=== PATIENT | female | born 1955 | race Caucasian/White ===

== ENCOUNTER 2017-03-04 14:28 | Observation (INO) | payer MEDICARE, OTHER ==
[2017-03-04] MEDS ORDERED: ASPIRIN 81 MG TABLET, CHEWABLE PO ONE (15:39)
--- NOTE | 2017-03-04 15:46 | ER Document Report ---
ED Medical Screen (RME) - General Chief Complaint: Chest Pain Stated Complaint: CHEST PAIN Time Seen by Provider: 03/04/17 15:39 Mode of Arrival: Ambulatory Information source: Patient Notes: 61 yr old female hx of htn presents with complaints of chest pain , sob m radiating to the left arm . pt notes she has had this pain before, told it was costochondritis I have greeted and performed a rapid initial assessment of this patient. A comprehensive ED assessment and evaluation of the patient, analysis of test results and completion of the medical decision making process will be conducted by additional ED providers. PHYSICAL EXAMINATION: GENERAL: Well-appearing, well-nourished and in no acute distress. HEAD: Atraumatic, normocephalic. EYES: Pupils equal round extraocular movements intact, conjunctiva are normal. ENT: Nares patent NECK: Normal range of motion LUNGS: No respiratory distress Musculoskeletal: Normal range of motion NEUROLOGICAL: Normal speech, normal gait. PSYCH: Normal mood, normal affect. SKIN: Warm, Dry, normal turgor, no rashes or lesions noted. TRAVEL OUTSIDE OF THE [place] IN LAST 30 DAYS: No - Related Data Allergies/Adverse Reactions: Penicillins Allergy (Severe, Verified 03/04/17 14:43) Swelling of Throat Sulfa (Sulfonamide Antibiotics) Allergy (Intermediate, Verified 03/04/17 14:43) morphine [Morphine] Allergy (Verified 03/04/17 14:43) Past Medical History - Past Medical History Cardiac Medical History: Reports: Hx Hypercholesterolemia, Hx Hypertension Pulmonary Medical History: Reports: Hx Asthma, Hx COPD, Hx Pneumonia Endocrine Medical History: Reports: Hx Diabetes Mellitus Type 1, Hx Diabetes Mellitus Type 2 Renal/ Medical History: Denies: Hx Peritoneal Dialysis GI Medical History: Reports: Hx Gastroesophageal Reflux Disease Musculoskeltal Medical History: Reports Hx Arthritis Past Surgical History: Reports: Hx Abdominal Surgery - abd hernia, Hx Cholecystectomy, Hx Hysterectomy - Immunizations Immunizations up to date: No Hx Diphtheria, Pertussis, Tetanus Vaccination: No Physical Exam - Vital signs Vitals: Temp Pulse BP Pulse Ox 97.7 F 70 144/59 H 94 03/04/17 14:42 03/04/17 14:42 03/04/17 14:42 03/04/17 14:42 Course - Vital Signs Vital signs: Temp Pulse Resp BP Pulse Ox 97.7 F 70 144/59 H 94 03/04/17 14:42 03/04/17 14:42 03/04/17 14:42 03/04/17 14:42
--- NOTE | 2017-03-04 16:33 | RADIOLOGY REPORT (SQ) ---
EXAM DESCRIPTION: CHEST SINGLE VIEW COMPLETED DATE/TIME: 03/04/2017 4:23 pm REASON FOR STUDY: chest pain COMPARISON: 12/17/2013 EXAM PARAMETERS: NUMBER OF VIEWS: One view. TECHNIQUE: Single frontal radiographic view of the chest acquired. RADIATION DOSE: NA LIMITATIONS: None. FINDINGS: LUNGS AND PLEURA: No opacities, masses or pneumothorax. No pleural effusion. MEDIASTINUM AND HILAR STRUCTURES: No masses. Contour normal. HEART AND VASCULAR STRUCTURES: Heart normal in size. Normal vasculature. BONES: No acute findings. HARDWARE: None in the chest. OTHER: No other significant finding. IMPRESSION: NO ACUTE RADIOGRAPHIC FINDING IN THE CHEST. TECHNICAL DOCUMENTATION: JOB ID: [id number]
[2017-03-04 16:59] LABS: ABSOLUTE BASOPHILS # (AUTO) 0.1 10^3/uL (0.0-0.2); ABSOLUTE EOSINOPHILS # (AUTO) 0.3 10^3/uL (0.0-0.6); ABSOLUTE MONOCYTES (AUTO) 0.4 10^3/uL (0.1-1.4); ABSOLUTE NEUT (AUTO) 3.2 10^3/uL (1.7-8.2); BASOPHILS % (AUTO) 1.2 % (0-2); EOSINOPHILS % (AUTO) 5.2 % (0-6); HEMATOCRIT 37.3 % (36.0-47.0); HEMOGLOBIN 12.5 g/dL (12.0-15.5); HGB HCT DIFFERENCE 0.2; LYMPHOCYTES % (AUTO) 20.4 % (13-45); MEAN CORPUSCULAR HEMOGLOBIN 28.2 pg (27.0-33.4); MEAN CORPUSCULAR HGB CONC 33.4 g/dL (32.0-36.0); MEAN CORPUSCULAR VOLUME 84 fl (80-97); MONOCYTES % (AUTO) 7.2 % (3-13); RED BLOOD COUNT 4.43 10^6/uL (3.72-5.28); RED CELL DISTRIBUTION WIDTH 15.2 % (11.5-14.0); WHITE BLOOD COUNT 4.9 10^3/uL (4.0-10.5)
[2017-03-04] MEDS ORDERED: LORAZEPAM INJ 2 MG/1 ML VIAL IV ONE (17:27)
[2017-03-04 18:09] LABS: ALANINE AMINOTRANSFERASE 40 U/L (9-52); ALKALINE PHOSPHATASE 120 U/L (38-126); ANION GAP 10 (5-19); ASPARTATE AMINO TRANSFERASE 34 U/L (14-36); BILIRUBIN,DIRECT 0.5 mg/dL (0.0-0.4); BLOOD UREA NITROGEN 19 mg/dL (7-20); CALCIUM 9.5 mg/dL (8.4-10.2); CARBON DIOXIDE 22 mmol/L (22-30); CHLORIDE 104 mmol/L (98-107); CREATINE KINASE 85 U/L (30-135); CREATININE RESULT 0.83 mg/dL (0.52-1.25); GLUCOSE 109 mg/dL (75-110); POTASSIUM 4.2 mmol/L (3.6-5.0); SODIUM 136.1 mmol/L (137-145); TOTAL PROTEIN 7.4 g/dL (6.3-8.2)
[2017-03-04 18:21] LABS: CREATINE KINASE MB 1.31 ng/mL (<4.55)
[2017-03-04 18:22] LABS: TROPONIN I < 0.012 ng/mL
--- NOTE | 2017-03-04 18:37 | ER Document Report ---
ED Cardiac - General Mode of Arrival: Ambulatory Information source: Patient TRAVEL OUTSIDE OF THE [place] IN LAST 30 DAYS: No <SHIVA KLINE - Last Filed: 03/04/17 18:33> <AISHWARYAASHLEEAL - Last Filed: 03/05/17 00:53> - General Chief Complaint: Chest Pain Stated Complaint: CHEST PAIN Time Seen by Provider: 03/04/17 15:39 Notes: Patient is a 61-year-old female with hypertension, diabetes, hypothyroidism, who presents to the ER today for 3 weeks of intermittent chest pain with shortness of breath. Patient has been seen by her primary care provider and been diagnosed with costochondritis. She states that she tried to take the naproxen that he sent her home with but she cannot because they "messed my stomach up to bad." She states that she only had 2 doses of naproxen. She complains of a cough that started 6 days ago that is dry with no other upper respiratory symptoms. She states that the chest pain as a squeezing feeling and go straight through to her back into her left shoulder blade. She denies any nausea, vomiting with this. She denies any fevers or chills. She has no history of heart attack or stroke. 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 and states that she stopped taking her Prilosec yesterday "because of all of this." (SHIVA KLINE) - Related Data Allergies/Adverse Reactions: Penicillins Allergy (Severe, Verified 03/04/17 14:43) Swelling of Throat Sulfa (Sulfonamide Antibiotics) Allergy (Intermediate, Verified 03/04/17 14:43) morphine [Morphine] Allergy (Verified 03/04/17 14:43) Past Medical History - General Information source: Patient - Social History Smoking Status: Never Smoker Family History: Reviewed & Not Pertinent, Arthritis, CAD, DM, Hyperlipidemia, Hypertension, Malignancy, Thyroid Disfunction - Past Medical History Cardiac Medical History: Reports: Hx Hypercholesterolemia, Hx Hypertension Pulmonary Medical History: Reports: Hx Asthma, Hx COPD, Hx Pneumonia Endocrine Medical History: Reports: Hx Diabetes Mellitus Type 1, Hx Diabetes Mellitus Type 2 Renal/ Medical History: Denies: Hx Peritoneal Dialysis GI Medical History: Reports: Hx Gastroesophageal Reflux Disease Musculoskeltal Medical History: Reports Hx Arthritis Past Surgical History: Reports: Hx Abdominal Surgery - abd hernia, Hx Cholecystectomy, Hx Hysterectomy - Immunizations Immunizations up to date: No Hx Diphtheria, Pertussis, Tetanus Vaccination: No <SHIVA KLINE - Last Filed: 03/04/17 18:33> Review of Systems - Review of Systems Constitutional: No symptoms reported EENT: No symptoms reported Cardiovascular: See HPI Respiratory: No symptoms reported Gastrointestinal: See HPI Genitourinary: No symptoms reported Female Genitourinary: No symptoms reported Musculoskeletal: No symptoms reported Skin: No symptoms reported Hematologic/Lymphatic: No symptoms reported Neurological/Psychological: No symptoms reported <SHIVA KLINE - Last Filed: 03/04/17 18:33> Physical Exam <SHIVA KLINE - Last Filed: 03/04/17 18:33> <AL KLEIN - Last Filed: 03/05/17 00:53> - Vital signs Vitals: Temp Pulse BP Pulse Ox 97.7 F 70 144/59 H 94 03/04/17 14:42 03/04/17 14:42 03/04/17 14:42 03/04/17 14:42 - Notes Notes: PHYSICAL EXAMINATION: GENERAL: Anxious, obese, but in no acute distress. HEAD: Atraumatic, normocephalic. EYES: Pupils equal round and reactive to light, extraocular movements intact, sclera anicteric, conjunctiva are normal. NECK: Normal range of motion, supple without lymphadenopathy LUNGS: CTAB and equal. No wheezes rales or rhonchi. HEART: Chest tender to palpation, regular rate and rhythm without murmurs ABDOMEN: Soft, no tenderness. No guarding, no rebound BACK: no vertebral tenderness, normal ROM GI/: no CVA tenderness EXTREMITIES: Normal range of motion, no pitting edema. No cyanosis. NEUROLOGICAL: Cranial nerves grossly intact. Normal sensory/motor exams. PSYCH: Normal mood, normal affect. SKIN: Warm, Dry, normal turgor, no rashes or lesions noted (SHIVA KLINE) Course - Laboratory Result Diagrams: 03/04/17 16:48 03/04/17 17:34 <SHIVA KLINE - Last Filed: 03/04/17 18:33> - Laboratory Result Diagrams: 03/04/17 16:48 03/04/17 17:34 <AL KLEIN - Last Filed: 03/05/17 00:53> - Re-evaluation Re-evalutation: On my evaluation patient is well-appearing, has no chest pain. CTA was performed and shows no acute abnormality, second troponin is negative. Discussed results with patient. However tech came to me with strips from the monitor, initial strip concerning for possible ventricular tachycardia, after searching I noted additional strip which is more clear which appears more like atrial flutter. I asked patient if she had had pain recently, the strips happened just after 9 PM, she states she has not had any discomfort for hours. She denies any current symptoms. Discussed with Dr. Cortez, recommends contacting Dr. Hernández. Spoke with Dr. Hernández, and he requests the strips. These were texted to him, he called back and states that he believes it could be artifact versus atrial flutter. Recommends patient obtain a echo and stress test very soon, patient stating she is more comfortable staying, he states this is a good plan (telemetry obs admission). Discussed with Dr. Oconnor, patient will be admitted to [facility] obs (in case she goes back into atrial flutter and requires intervention). (AL KLEIN) - Vital Signs Vital signs: Temp Pulse Resp BP Pulse Ox 97.7 F 70 11 L 133/62 H 99 03/04/17 14:42 03/04/17 14:42 03/05/17 00:00 03/04/17 22:03 03/05/17 00:00 - Laboratory Laboratory results interpreted by me: 03/04/17 03/04/17 16:48 17:34 RDW 15.2 H Sodium 136.1 L Direct Bilirubin 0.5 H Discharge <SHIVA KLINE - Last Filed: 03/04/17 18:33> - Discharge Admitting Provider: Hospitalist Unit Admitted: IMCU <AL KLEIN - Last Filed: 03/05/17 00:53> - Discharge Clinical Impression: Chest pain Qualifiers: Chest pain type: unspecified Qualified Code(s): R07.9 - Chest pain, unspecified Condition: Stable Disposition: ADMITTED OBSERVATION
--- NOTE | 2017-03-04 20:16 | RADIOLOGY REPORT (SQ) ---
EXAM DESCRIPTION: CTA CHEST COMPLETED DATE/TIME: 03/04/2017 7:38 pm REASON FOR STUDY: cp, sob, squeezing feeling through to back COMPARISON: 09/15/2014 TECHNIQUE: CT scan of the chest performed using helical scanning technique with dynamic intravenous contrast injection. Images reviewed with lung, soft tissue and bone windows. Reconstructed coronal and sagittal MPR images reviewed. Additional 3 dimensional post-processing performed to develop Maximal Intensity Projection images (AZ P). All images stored on PACS. All CT scanners at this facility use dose modulation, iterative reconstruction, and/or weight based d osing when appropriate to reduce radiation dose to as low as reasonably achievable (ALARA). [facility]: Dose Right [facility]: CareDose [facility]: Dose Right [facility]: Teradose 4D [facility]: Pikhub CONTRAST TYPE AND DOSE: contrast/concentration: Isovue 370.00 mg/ml; Total Contrast Delivered: 83.0 ml; Total Saline Delivered: 80.0 ml Contrast bolus optimized for the pulmonary arteries. Not diagnostic for the aorta. RENAL FUNCTION: GFR > 60. RADIATION DOSE: Up-to-date CT equipment and radiation dose reduction techniques were employed. CTDIv ol: 46.9 - 51.8 mGy. DLP: 1811 mGy-cm. . LIMITATIONS: None. FINDINGS: LUNGS AND PLEURA: No masses, infiltrates, pneumothorax. No pleural effusions, calcificati ons. AORTA AND GREAT VESSELS: No aneurysm. Contrast bolus not optimized for the aorta. HEART: No pericardial effusion. No significant coronary artery calcifications. PULMONARY ARTERIES: No emboli visualized in the main pulmonary arteries or the segmental branches. HILAR AND MEDIASTINAL STRUCTURES: No identified masses or abnormal nodes. HARDWARE: None in the chest. UPPER ABDOMEN: No significant findings. Limited exam. THYROID AND OTHER SOFT TISSUES: No masses. No adenopathy. BONES: No acute finding. Similar multilevel degenerative changes. 3D MIPS: Confirm above findings. OTHER: No other significant finding. IMPRESSION: No emboli visualized in the main pulmonary arteries or the segmental branches. COMMENT: Quality ID # [id number]: Final reports with documentation of one or more dose reduction techniques (e.g., Automated exposure control, adjustment of the mA and/or kV according to patient size, use of iterative reconstruction technique) TECHNICAL DOCUMENTATION: JOB ID: [id number] [place]- All Rights Reserved
[2017-03-05] MEDS ORDERED: ACETAMINOPHEN 325 MG TABLET PO PRN (00:37)
[2017-03-05] MEDS ORDERED: PROMETHAZINE HCL 25 MG TABLET PO PRN (00:37)
[2017-03-05 01:28] LABS: ADD ON TESTING BLD IN LAB ACKNOWLEDGE
[2017-03-05 01:46] LABS: MAGNESIUM 1.6 mg/dL (1.6-2.3)
[2017-03-05] MEDS ORDERED: MAG HYDROX/AL HYDROX/SIMETH SUSP 30 ML UDCUP PO PRN (07:39)
[2017-03-05] MEDS ORDERED: DEXTROSE 50%-WATER 25 GM/50 ML DISP.SYRIN IV PRN ×2 (07:41)
[2017-03-05] MEDS ORDERED: DEXTROSE 40% GEL 15 GM TUBE PO PRN ×2 (07:41)
[2017-03-05] MEDS ORDERED: GLUCAGON,HUMAN RECOMB 1 MG INJ IM PRN (07:41)
--- NOTE | 2017-03-05 08:42 | PDOC H&P ---
History of Present Illness Admission Date/PCP: 03/05/17 07:40 Dr. Rao, [facility] Patient complains of: Chest pain History of Present Illness: BA ARIAS is a 61 year old morbidly obese insulin-dependent diabetic female with underlying hypertension, along with a possible family history of early coronary artery disease in the person of her mother who presents to the emergency room for evaluation of above complaint. Patient has been discussed with emergency room nurse practitioner who evaluated the patient. For the past 3 weeks, she has had intermittent problems with substernal chest discomfort with associated shortness of breath. Seen by her primary care provider and diagnosed with costochondritis, which has bothered her in the past. Was given a prescription for naproxen, but took only 2 doses, since this caused quite a bit of gastric distress. Chest pain described as a squeezing sensation that radiates posteriorly toward her left scapula. Increased with certain movements. No specific prior such episodes of chest discomfort. While in the emergency room, patient had 2 brief episodes of possible atrial flutter. The rhythm strips were actually faxed to Dr. Hernández, on-call oracle application consultant, prior to my seeing the patient. Dr. Hernández reportedly felt this was either atrial flutter or simply artifact, but did recommend cardiology consult and an echocardiogram. Other than hypertension, basically negative cardiac history. Negative exercise treadmill study one year ago. States she was able to go 6 minutes. Negative heart catheterization 6 years ago after an abnormal stress test at that time. No history of pulmonary embolus or DVT. No recent long trip with prolonged inactivity, or unusual lower extremity swelling or tenderness. Family history remarkable for mother who suffered a myocardial infarction in her 50s; however, patient states this was felt due to thyroid medication that mother had been prescribed. No recent nausea vomiting, fever or chills. She actually had a negative upper endoscopy by Dr. Guerin last Wednesday. 6 days ago, developed a dry cough, but no other respiratory symptoms. Does carry diagnosis of asthma. Also carries a diagnosis of obstructive sleep apnea, but does not use her home device, due to "improper settings." Currently resting quietly, chest pain-free. Dictation via voice recognition software. Laboratory results are listed in [employer] and are reviewed. X-ray summary results are listed below, with full report(s) reviewed. . EKG reviewed. Social history/personal habits: . Has children. 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 No tobacco use for 10 years. No alcohol or illicit drug use. Allergies/adverse reactions are listed in [employer] and are reviewed. Home medications initially autopopulated into [employer] may not accurately reflect patient's true medications, dosages, and/or frequencies. 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 Unfortunately, patient not certain of all medications/dosages/frequencies. REVIEW OF SYSTEMS: Constitutional: No fever or chills. Eyes: Wears glasses ENT: No swallowing problems or complaints. Partial hearing loss. Pulmonary: See history and present illness. Cardiovascular: See history and present illness. Gastrointestinal: No current complaints, including nausea or vomiting. Skin: Intermittent problems with "dermatitis." Hematologic: Easy bruising. Neurologic: No current complaints, including numbness or tingling. Musculoskeletal: Joint pain from arthritis. Psychiatric: Anxiety. Endocrine: No current complaints, including polyuria. Genitourinary: No current complaints, including dysuria. PHYSICAL EXAMINATION: 4 feet 9 inches tall. 120.2 kg. BMI 57.3 kg/m. Temperature 98.0. Pulse 77 and regular. Blood pressure 154/57. Respirations are 22 and unlabored. 94% saturation on room air. Female technician anatomic pathology Marilynn is present. Morbidly obese somewhat chronically ill-appearing female who nevertheless appears approximately her stated age. Pleasant awake alert and cooperative. No obvious distress other than somewhat anxious. Skin is warm and dry. No grossly obvious evidence of rash in areas of skin examined. No subcutaneous nodules palpated. ENT: Hearing grossly normal to normal conversation. Tongue midline on protrusion pink and moist. Eyes: No scleral icterus. Pupils equal and reactive to light at 4 mm. [place] conjunctivae. Neck is supple and nontender to gentle active range of motion and palpation. Midline trachea. No palpable thyroid nodule mass enlargement or tenderness. Lymphatic: No palpable cervical or clavicular nodes. Neck and lymphatic exams limited by patient body habitus. Psychiatric: Reasonable insight into acute and chronic medical issues. Oriented to time location and why here. Lungs: Auscultation reveals clear and equal breath sounds bilaterally. No use of accessory respiratory muscles. Cardiovascular: Heart regular rate and rhythm, without gallop murmur or rub. No carotid or abdominal aortic bruits. No ankle or pedal edema. Faintly palpable dorsalis pedis pulses. Abdomen:soft quite obese nontender with positive bowel sounds. Unable to adequately evaluate abdomen for masses or organomegaly due to body habitus. Compression of her upper epigastrium possibly reproduces her previously noted chest discomfort. However, sternal compression easily reproduces this discomfort. Extremities: Feet are warm and dry. No calf tenderness to compression. No grossly obvious visual evidence of calf swelling. Gentle manipulation of lower extremities fails to reveal any obvious evidence of injury or instability to knees hips or ankles. Neurologic: Moves upper extremities grossly normally. Patellar reflexes absent. Absent Babinski. Light touch is intact at feet. Dorsiflexion and plantarflexion of feet 5 / 5 and symmetric. Past Medical History Cardiac Medical History: Reports: Hypertension Denies: Atrial Fibrillation, Congestive Heart Failure, Coronary Artery Disease, DVT, Myocardial Infarction, Hyperlipidema, Pulmonary Embolism Pulmonary Medical History: Reports: Asthma, Pneumonia, Sleep Apnea - Noncompliant with home CPAP. Denies: Chronic Obstructive Pulmonary Disease (COPD) EENT Medical History: Reports: Eyes - Glasses, Ears - Partial hearing loss Denies: Throat Neurological Medical History: Denies: Hemorrhagic CVA, Ischemic CVA, Seizures Endocrine Medical History: Reports: Diabetes Mellitus Type 1, Hypothyroidism Denies: Diabetes Mellitus Type 2, Hyperthyroidism GI Medical History: Reports: Gastroesophageal Reflux Disease, Other - Fatty liver Denies: Cirrhosis, Hepatitis, Peptic Ulcer Disease Musculoskeltal Medical History: Reports: Arthritis Skin Medical History: Reports: Other - Occasional problems with "dermatitis" Psychiatric Medical History: Reports: General Anxiety Disorder Denies: Alcohol Dependency, Depression, Substance Abuse, Tobacco Dependency Hematology: Reports: Other - Easy bruising Infectious Medical History: Denies: Hepatitis B, Hepatitis C Past Surgical History Past Surgical History: Reports: Cholecystectomy, Hysterectomy Social History Information Source: Patient, Emergency Med Personnel, [facility] Records Lives with: Spouse/Significant other Smoking Status: Former Smoker Number of Years Smokin Last Time Smoked: 2006 Frequency of Alcohol Use: None Hx Recreational Drug Use: No Drugs: None Hx Prescription Drug Abuse: No - Advance Directive Resuscitation Status: Full Code Surrogate healthcare decision maker:: Family History Family History: Reviewed & Not Pertinent, Arthritis, CAD, DM, Hyperlipidemia, Hypertension, Malignancy, Thyroid Disfunction Parental Family History Reviewed: Yes - Both parents of heart problems Children Family History Reviewed: Yes - Daughter with hypertension Sibling(s) Family History Reviewed.: Yes - Sister with heart valve problem Medication/Allergy Home Medications: RX: Albuterol Sulfate [Proair HFA Inhalation Aerosol 8.5 gm MDI] 2 puff IH Q4HP PRN 03/05/17 RX: Amitriptyline HCl [Elavil 25 mg Tablet] 25 mg PO QHS 03/05/17 RX: Cholecalciferol (Vitamin D3) [Vitamin D3 1000 Unit Tablet] 1,000 units PO DAILY 03/05/17 RX: Diazepam [Valium 5 mg Tablet] 5 mg PO DAILYP PRN 03/05/17 RX: Fluticasone Propionate [Flonase Nasal [place] 50 Mcg/[place] 16 gm] 2 spray NASL DAILY 03/05/17 RX: Insulin Aspart [Novolog Flexpen] 14 units SUBCUT MEALS 03/05/17 RX: Insulin Glargine,Hum.rec.anlog [Lantus Solostar] 16 units SUBCUT BID RX: L.acidoph,Paracasei, B.lactis [Probiotic] 1 cap PO DAILY 03/05/17 RX: Levothyroxine Sodium [Synthroid 0.15 mg Tablet] 0.15 mg PO QAM 03/05/17 RX: Multivitamin [Daily Multiple Vitamin] 1 tab PO DAILY 03/05/17 RX: Omeprazole 40 mg PO DAILY 03/05/17 RX: Telmisartan [Micardis 80 mg Tablet] 80 mg PO DAILY 03/05/17 RX: Amlodipine Besylate [Norvasc 10 mg Tablet] 10 mg PO DAILY #30 tablet RX: Atorvastatin Calcium [Lipitor 40 mg Tablet] 40 mg PO QHS #30 tablet Allergies/Adverse Reactions: Penicillins Allergy (Severe, Verified 03/05/17 08:29) rash Sulfa (Sulfonamide Antibiotics) Allergy (Intermediate, Verified 03/05/17 08:29) Swelling of Throat, morphine [Morphine] Adverse Reaction (Verified 03/05/17 08:29) shaking, "brain freezes" oxycodone Adverse Reaction (Verified 03/05/17 08:29) sedation Physical Exam Vital Signs: Temp Pulse Resp BP Pulse Ox 98.0 F 77 22 H 154/57 H 94 03/05/17 07:13 03/05/17 07:13 03/05/17 07:13 03/05/17 07:13 03/05/17 07:13 Intake & Output 03/04/17 03/05/17 03/06/17 00:59 00:59 00:59 Weight 120.202 kg Results Impressions: Chest X-Ray 03/04/17 15:39 IMPRESSION: NO ACUTE RADIOGRAPHIC FINDING IN THE CHEST. Chest/Abdomen CTA 03/04/17 17:26 IMPRESSION: No emboli visualized in the main pulmonary arteries or the segmental branches. Assessment & Plan - Diagnosis (1) New onset atrial flutter Is this a current diagnosis for this admission?: Yes Plan: Cardiology consult. Echocardiogram. (2) Precordial chest pain Is this a current diagnosis for this admission?: Yes Plan: Likely this is musculoskeletal in nature, but given patient's multiple risk factors, Patient will be placed in observation bed under chest pain protocol. Patient understands to notify staff should chest pain recur. Serial troponin . Repeat EKG. lipid panel. I have strongly encouraged patient to be careful getting out of bed, to avoid a fall with injury. Knee high SCDs for DVT prophylaxis, along with subcu heparin. Impression and plans were discussed with patient, who concurs. Time spent in evaluation and management of patient: 75 minutes. (3) Asthma Qualifiers: Asthma severity: unspecified severity Asthma persistence: unspecified Asthma complication type: uncomplicated Qualified Code(s): J45.909 - Unspecified asthma, uncomplicated Is this a current diagnosis for this admission?: Yes Plan: Resume home medications as appropriate once these have been determined and reviewed. (4) Diabetes mellitus type 1 Qualifiers: Diabetes mellitus complication status: without complication Qualified Code( s): E10.9 - Type 1 diabetes mellitus without complications Is this a current diagnosis for this admission?: Yes Plan: Diabetic cardiac diet. Accu-Cheks with appropriate sliding scale coverage. Resume home medications as appropriate once these have been determined and reviewed. (5) GERD (gastroesophageal reflux disease) Qualifiers: Esophagitis presence: esophagitis presence not specified Qualified Code(s) : K21.9 - Gastro-esophageal reflux disease without esophagitis Is this a current diagnosis for this admission?: Yes Plan: As needed antacid. - Time Time Spent: Greater than 70 Minutes Medications reviewed and adjusted accordingly: Yes Anticipated discharge: Home Within: within 24 hours
[2017-03-05] MEDS ORDERED: ALBUTEROL SULFATE HFA (90 MCG/PUFF) 200 PUFF/8.5 GM MDI IH PRN (08:43)
[2017-03-05] MEDS ORDERED: DIAZEPAM 5 MG TABLET PO PRN (08:44)
[2017-03-05 09:26] LABS: CHOLESTEROL 200.72 mg/dL (0-200); Direct HDL 42 mg/dL (>40); TRIGLYCERIDES 280 mg/dL (<150)
[2017-03-05 09:37] LABS: DIRECT LDL 111 mg/dL (<100)
[2017-03-05] MEDS ORDERED: (PENDING PHARMACY ID) (Telmisartan [Micardis 80 Mg Tablet] 80 MG) PO SCH (10:00)
[2017-03-05] MEDS ORDERED: LOSARTAN POTASSIUM 50 MG TABLET PO SCH ×2 (10:00→11:00)
[2017-03-05] MEDS ORDERED: INSULIN GLARGINE,HUM.REC.ANLOG 300 UNIT/3 ML INSULN.PEN SUBCUT SCH ×4 (10:00→18:00)
[2017-03-05] MEDS: HEPARIN SOD (PORCINE) 5,000 UNIT/ML 1 ML SYRINGE SUBCUT SCH ×2 (10:14→18:05)
[2017-03-05] MEDS: LANSOPRAZOLE 30 MG TAB.RAP.DR PO SCH (10:15)
[2017-03-05] MEDS: MULTIVITAMIN TABLET PO SCH (10:15)
[2017-03-05] MEDS: CHOLECALCIFEROL (D3) 1,000 UNIT TABLET PO SCH (10:15)
[2017-03-05] MEDS: DOCUSATE SODIUM 100 MG CAPSULE PO SCH ×2 (10:16→18:04)
[2017-03-05] MEDS: ASPIRIN 81 MG TABLET, ENT COATED PO SCH (10:16)
[2017-03-05] MEDS: FLUTICASONE NASAL SPRAY 50 MCG/SPRY 120 SPRAY/16 GM NASL SCH (10:21)
--- NOTE | 2017-03-05 10:57 | EKG REPORT ---
SEVERITY:- NORMAL ECG - SINUS RHYTHM : Confirmed by: Caridad Cardenas MD 05-Mar-2017 10:56:55
--- NOTE | 2017-03-05 10:57 | EKG REPORT ---
SEVERITY:- NORMAL ECG - SINUS RHYTHM : Confirmed by: Caridad Cardenas MD 05-Mar-2017 10:57:04
--- NOTE | 2017-03-05 11:00 | PDOC CONSULTATION ---
Consultation Consult Date: 03/05/17 Attending physician:: YAHAIRA LI Consult reason:: Chest pain. Atrial flutter, felt to be artifact History of Present Illness Admission Date/PCP: 03/05/17 07:40 Patient complains of: Chest pain History of Present Illness: BA ARIAS is a 61 year old morbidly obese insulin-dependent diabetic female with underlying hypertension, along with a possible family history of early coronary artery disease in the person of her mother who presents to the emergency room for evaluation of above complaint. Patient has been discussed with emergency room nurse practitioner who evaluated the patient. For the past 3 weeks, she has had intermittent problems with substernal chest discomfort with associated shortness of breath. Seen by her primary care provider and diagnosed with costochondritis, which is bothered her in the past. Was given a prescription for naproxen, but took only 2 doses, since this caused quite a bit of gastric distress. Chest pain described as a squeezing sensation that radiates posteriorly toward her left scapula. Increased with certain movements. No specific prior such episodes of chest discomfort. While in the emergency room, patient had 2 brief episodes of possible atrial flutter. The rhythm strips were actually faxed to Dr. Hernández, on-call analytics senior manager, prior to my seeing the patient. Dr. Hernández reportedly felt this was either atrial flutter or simply artifact, but did recommend cardiology consult and an echocardiogram. Other than hypertension, basically negative cardiac history. Negative exercise treadmill study one year ago. States she was able to go 6 minutes. Negative heart catheterization 6 years ago after an abnormal stress test at that time. Family history remarkable for mother who suffered a myocardial infarction in her 50s; however, patient states this was felt due to thyroid medication that mother had been prescribed. No recent nausea vomiting, fever or chills. She actually had a negative upper endoscopy by Dr. Guerin last Wednesday. 6 days ago, developed a dry cough, but no other respiratory symptoms. Does carry diagnosis of asthma. Also carries a diagnosis of obstructive sleep apnea, but does not use her home device, due to "improper settings." Currently resting quietly, chest pain-free. This history was reviewed and supplemented as well as confirmed. Patient describes recent diagnosis of costochondritis but yesterday she had noted some cramping sensation in the chest which she felt different therefore came to the emergency room. In the emergency room patient was noted to have what the ER physician thought was atrial flutter but by my review, I feel these are artifacts. Patient is being admitted for observation and IL rule out protocol because of chest pain and significant cardiac risk factors. Today I discussed pursuing yet another stress test but she was unwilling to do so. Past Medical History Cardiac Medical History: Reports: Hypertension Denies: Atrial Fibrillation, Congestive Heart Failure, Coronary Artery Disease, DVT, Myocardial Infarction, Hyperlipidema, Pulmonary Embolism Pulmonary Medical History: Reports: Asthma, Pneumonia, Sleep Apnea - Noncompliant with home CPAP. Denies: Chronic Obstructive Pulmonary Disease (COPD) EENT Medical History: Reports: Eyes - Glasses, Ears - Partial hearing loss, Other - Easy bruising Denies: Throat Neurological Medical History: Denies: Hemorrhagic CVA, Ischemic CVA, Seizures Endocrine Medical History: Reports: Diabetes Mellitus Type 1, Hypothyroidism Denies: Diabetes Mellitus Type 2, Hyperthyroidism GI Medical History: Reports: Gastroesophageal Reflux Disease, Other - Fatty liver Denies: Cirrhosis, Hepatitis, Peptic Ulcer Disease Musculoskeltal Medical History: Reports: Arthritis Skin Medical History: Reports: Other - Occasional problems with "dermatitis" Psychiatric Medical History: Reports: General Anxiety Disorder Denies: Alcohol Dependency, Depression, Substance Abuse, Tobacco Dependency Hematology: Reports: Other - Easy bruising Infectious Medical History: Denies: Hepatitis B, Hepatitis C Past Surgical History Past Surgical History: Reports: Cardiac Catheterization - -6 years ago, was reported to be negative for CAD, Cholecystectomy, Hysterectomy Social History Information Source: Patient Lives with: Spouse/Significant other Smoking Status: Former Smoker Number of Years Smokin Last Time Smoked: 2006 Frequency of Alcohol Use: None Hx Recreational Drug Use: No Drugs: None Hx Prescription Drug Abuse: No - Advance Directive Resuscitation Status: Full Code Surrogate healthcare decision maker:: Currently full code, patient's surrogate decision-maker Family History Family History: Reviewed & Not Pertinent, Arthritis, CAD, DM, Hyperlipidemia, Hypertension, Malignancy, Thyroid Disfunction Parental Family History Reviewed: Yes Children Family History Reviewed: Yes Sibling(s) Family History Reviewed.: Yes - Positive family history of CAD in mother Medication/Allergy Home Medications: Albuterol Sulfate [Proair HFA Inhalation Aerosol 8.5 gm MDI] 2 puff IH Q4HP PRN 03/05/17 Amitriptyline HCl [Elavil 25 mg Tablet] 25 mg PO QHS 03/05/17 Cholecalciferol (Vitamin D3) [Vitamin D3 1000 Unit Tablet] 1,000 units PO DAILY 03/05/17 Diazepam [Valium 5 mg Tablet] 5 mg PO DAILYP PRN 03/05/17 Fluticasone Propionate [Flonase Nasal [place] 50 Mcg/[place] 16 gm] 2 spray NASL DAILY 03/05/17 Insulin Aspart [Novolog Flexpen] 14 units SUBCUT MEALS 03/05/17 Insulin Glargine,Hum.rec.anlog [Lantus Solostar] 16 units SUBCUT BID 03/05/17 L.acidoph,Paracasei, B.lactis [Probiotic] 1 cap PO DAILY 03/05/17 Levothyroxine Sodium [Synthroid 0.15 mg Tablet] 0.15 mg PO QAM 03/05/17 Multivitamin [Daily Multiple Vitamin] 1 tab PO DAILY 03/05/17 Omeprazole 40 mg PO DAILY 03/05/17 Telmisartan [Micardis 80 mg Tablet] 80 mg PO DAILY 03/05/17 Amlodipine Besylate [Norvasc 10 mg Tablet] 10 mg PO DAILY #30 tablet 03/06/17 Atorvastatin Calcium [Lipitor 40 mg Tablet] 40 mg PO QHS #30 tablet 03/06/17 Allergies/Adverse Reactions: Penicillins Allergy (Severe, Verified 03/05/17 08:29) rash Sulfa (Sulfonamide Antibiotics) Allergy (Intermediate, Verified 03/05/17 08:29) Swelling of Throat, morphine [Morphine] Adverse Reaction (Verified 03/05/17 08:29) shaking, "brain freezes" oxycodone Adverse Reaction (Verified 03/05/17 08:29) sedation Review of Systems Review of Systems: Please see history of present illness and past medical history as wall. Constitutional: No fever or chills reported. Head : No recent chronic headaches, recent head injury. Eyes: No recent eye pain, diplopia, redness, discharge, acute visual changes. Ears: No recent chronic ear pain, acute hearing loss, ear discharge. Oral cavity: No recent ulcerations, bleeding, oral cavity discomfort. Neck: No recent acute neck pain reported. Hematologic: No recent easy bruising or bleeding or hematologic malignancy reported. Lymphatic: No recent lymphatic malignancy, chronic lymphadenopathy reported yet Cardiovascular system review: See history of present illness. Respiratory system review: Dry cough noted but no hemoptysis, blood clots in the lungs reported. Mild Shortness of breath on exertion Gastrointestinal system review: Negative for any recent acute or chronic abdominal pain, hematemesis, melena, recent change in bowel habits. Recent endoscopy showing no significant finding Genitourinary system review: No recent acute or chronic hematuria, flank pain, UTI etc. reported. Skin system review: Negative for any recent abnormal bruising, no rash, no pruritus reported. Neurologic: No prior history of strokes, mini strokes, seizure disorder. Psychologic: No history of major psychosis or major depression reported. Musculoskeletal: Minor aches and pains reported. No acute joint swelling reported. Endocrine: No recent polyuria, polydipsia, recent heat or cold intolerance. Physical Exam Vital Signs: Temp Pulse Resp BP Pulse Ox 98.0 F 77 22 H 154/57 H 94 03/05/17 07:13 03/05/17 07:13 03/05/17 07:13 03/05/17 07:13 03/05/17 07:13 Intake & Output 03/04/17 03/05/17 03/06/17 06:59 06:59 06:59 Weight 120.202 kg Exam: GENERAL: well-nourished and in no acute distress. Alert and oriented x3 HEAD: Atraumatic, normocephalic. EYES: Pupils equal round and reactive to light, extraocular movements intact, sclera anicteric, conjunctiva are normal. ENT: TMs normal, nares patent, oropharynx clear without exudates. Moist mucous membranes. No oral ulcerations or bleeding gums noted NECK: supple without lymphadenopathy. Trachea is central. No cervical or axillary lymphadenopathy noted. Carotids are 2+, JVD WNL LUNGS: Respiration seems nonlabored, no significant accessory muscle action noted. Breath sounds clear to auscultation bilaterally and equal noted. No wheezes rales or rhonchi noted. No significant dullness noted on percussion. CHEST: Palpation of the chest wall shows significant chest wall tenderness. No other significant abnormalities noted. 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 ABDOMEN: Soft, no significant tenderness appreciated, normoactive bowel sounds. No guarding, no rebound. No rigidity noted . No masses appreciated. EXTREMITIES: Pedal pulses are 1-2+, no calf tenderness noted. No clubbing or cyanosis.trace to 1+ pedal edema noted NEUROLOGICAL: Focused neurological exam showed no significant neurologic deficit. Normal speech, no focal weakness appreciated. PSYCH: Normal mood, normal affect. Judgment and insight within normal limits. SKIN: No significant ecchymosis, rash, ulcerations or signs of pruritus noted. MUSCULOSKELETAL EXAM: No significant joint swelling noted. Results Laboratory Results: 03/05/17 08:05 Triglycerides 280 H Cholesterol 200.72 H LDL Cholesterol Direct 111 H VLDL Cholesterol 56.0 H HDL Cholesterol 42 03/05/17 08:05 Troponin I < 0.012 EKG Comments: Sinus rhythm, no acute ST-T wave changes are noted. Impressions: Chest X-Ray 03/04/17 15:39 IMPRESSION: NO ACUTE RADIOGRAPHIC FINDING IN THE CHEST. Chest/Abdomen CTA 03/04/17 17:26 IMPRESSION: No emboli visualized in the main pulmonary arteries or the segmental branches. Assessment & Plan - Diagnosis (1) Chest pain Qualifiers: Chest pain type: unspecified Qualified Code(s): R07.9 - Chest pain, unspecified Is this a current diagnosis for this admission?: Yes (2) Abnormal electrocardiogram Is this a current diagnosis for this admission?: Yes (3) Sleep apnea syndrome Qualifiers: Sleep apnea type: unspecified type Qualified Code(s): G47.30 - Sleep apnea , unspecified Is this a current diagnosis for this admission?: Yes (4) Asthma Qualifiers: Asthma severity: unspecified severity Asthma persistence: unspecified Asthma complication type: uncomplicated Qualified Code(s): J45.909 - Unspecified asthma, uncomplicated Is this a current diagnosis for this admission?: Yes (5) GERD (gastroesophageal reflux disease) Qualifiers: Esophagitis presence: esophagitis presence not specified Qualified Code(s) : K21.9 - Gastro-esophageal reflux disease without esophagitis Is this a current diagnosis for this admission?: Yes (6) Obesity Qualifiers: Obesity type: unspecified obesity type Body mass index: unspecified BMI Is this a current diagnosis for this admission?: Yes (7) Dyspnea Qualifiers: Dyspnea type: unspecified Qualified Code(s): R06.00 - Dyspnea, unspecified Is this a current diagnosis for this admission?: Yes - Notes Notes: Chest pain: This is felt to be atypical and most likely related to costochondritis and possible fibromyalgia. Have recommended a stress test but patient claiming previous side effects did not want to pursue it at this point. Discussed that her chest pain is most likely musculoskeletal. Recommend local and systemic analgesics. Abnormal EKG strips showing atrial flutter but my review suggest that these are artifacts. Gastroesophageal reflux disease: Recommend double dose proton pump inhibitor. Obesity: Patient has been recommended in weight loss. Sleep apnea syndrome: Discussed association of fibromyalgia and other inflammatory disorder with untreated sleep apnea. Patient encouraged to start therapy with CPAP. Asthma: Currently stable. Lungs sounded clear. Dyspnea: Most likely related to diastolic dysfunction and extreme obesity. Patient encouraged in regular walking program and weight loss. A 2D echo was ordered. - Time Time Spent: 30 to 50 Minutes - CODE STATUS was discussed, patient remains full code. Surrogate decision-maker unchanged. Multiple medical problems were addressed. More than 50% of the time spent coordinating care, discussing management plans with involved caregivers. Management plans discussed with involved personnels. Medical decision making was of moderate to high complexity , patient's has multiple comorbidities. Medications reviewed and adjusted accordingly: Yes
[2017-03-05] MEDS ORDERED: INSULIN ASPART 14 UNIT SUBCUT SCH (12:00)
--- NOTE | 2017-03-05 12:01 | XCELERA REPORT ---
[address] [address] Transthoracic Echocardiogram Report Name: BA ARIAS Age: 61 yrs Gender: Female : 1955 Patient Status: Inpatient Patient Location: [address] [place] [address] Study Date: 03/05/2017 09:05 AM Height: 57 in Weight: 265 lb BSA: 2.0 m2 Procedure: A complete two-dimensional transthoracic echocardiogram was performed (2D, M-mode, spectral and color flow Doppler). The study was technically difficult with many images being suboptimal in quality. Reason For Study: cp; new aflutter Ordering Physician: YAHAIRA LI Performed By: Reyna Riley Interpretation Summary The left ventricular ejection fraction is normal. There is mild concentric left ventricular hypertrophy. Doppler measurements suggest pseudonormalized left ventricular relaxation, which is associated with grade II/IV or mild to moderate diastolic dysfunction The left ventricle is grossly normal size. The right ventricular systolic function is normal. The right ventricle is borderline dilated. The right atrium is mildly dilated. The left atrial size is normal. No significant valvular abnormalities noted MMode/2D Measurements & Calculations RVDd: 3.1 cm LVIDd: 4.9 cm FS: 34.8 % Ao root diam: 2.0 cm IVSd: 1.2 cm LVIDs: 3.2 cm EDV(Teich): 112.3 ml LVPWd: 1.2 cm ESV(Teich): 40.6 ml Ao root area: 3.2 cm2 EF(Teich): 63.9 % LA dimension: 3.4 cm Doppler Measurements & Calculations MV E max camilla: MV P1/2t max camilla: Ao V2 max: LV V1 max P.8 cm/sec 91.3 cm/sec 124.9 cm/sec 2.6 mmHg MV A max camilla: MV P1/2t: 57.3 msec Ao max PG: LV V1 max: 75.5 cm/sec 6.2 mmHg 80.5 cm/sec MV E/A: 1.2 MVA(P1/2t): 3.8 cm2 MV dec slope: 466.4 cm/sec2 PA V2 max: 88.8 cm/sec PA max P.2 mmHg Left Ventricle The left ventricle is grossly normal size. There is mild concentric left ventricular hypertrophy. The left ventricular ejection fraction is normal. Doppler measurements suggest pseudonormalized left ventricular relaxation, which is associated with grade II/IV or mild to moderate diastolic dysfunction. Wall motion cannot be accurately commented on, but no definite regional wall motion abnormalities noted. Right Ventricle The right ventricle is borderline dilated. There is normal right ventricular wall thickness. The right ventricular systolic function is normal. Atria The right atrium is mildly dilated. The left atrial size is normal. Interarterial septum not well visualized and not well dopplered. Cannot comment on ASD/PFO presence. Mitral Valve The mitral valve is grossly normal. There is no mitral valve stenosis. There is no mitral regurgitation noted. Aortic Valve The aortic valve is not well visualized secondary to technical limitations. There is no aortic valve stenosis. No aortic regurgitation is present. Tricuspid Valve The tricuspid valve is not well visualized secondary to technical limitations. There is no tricuspid stenosis. There is a trace or physiologic amount of tricuspid regurgitation. Tricuspid regurgitation jet envelope not well defined to measure RV systolic pressure accurately. Pulmonic Valve The pulmonic valve is not well visualized. Great Vessels The aortic root is not well visualized but is probably normal size. The inferior vena cava was not well visualized. Effusions There is no pericardial effusion. : YAHAIRA LI > Anna Hernández
[2017-03-05] MEDS: INSULIN LISPRO 100 UNIT/ML 3 ML VIAL SUBCUT SCH ×2 (12:40→18:07)
[2017-03-05] MEDS ORDERED: AMLODIPINE BESYLATE 10 MG TABLET PO ONE (17:22)
[2017-03-05] MEDS ORDERED: ATORVASTATIN CALCIUM 40 MG TABLET PO SCH (22:00)
[2017-03-05] MEDS ORDERED: AMITRIPTYLINE HCL 25 MG TABLET PO SCH (22:00)
[2017-03-05] MEDS: INSULIN GLARGINE,HUM.REC.ANLOG 300 UNIT/3 ML INSULN.PEN SUBCUT SCH (22:10)
[2017-03-06] MEDS: HEPARIN SOD (PORCINE) 5,000 UNIT/ML 1 ML SYRINGE SUBCUT SCH ×2 (02:22→09:39)
[2017-03-06] MEDS ORDERED: LEVOTHYROXINE SODIUM 0.15 MG TABLET PO SCH (08:00)
[2017-03-06] MEDS: INSULIN LISPRO 100 UNIT/ML 3 ML VIAL SUBCUT SCH ×2 (08:55→11:36)
[2017-03-06 09:12] VITALS: BP 141/68
[2017-03-06] MEDS: INSULIN GLARGINE,HUM.REC.ANLOG 300 UNIT/3 ML INSULN.PEN SUBCUT SCH (09:38)
[2017-03-06] MEDS: DOCUSATE SODIUM 100 MG CAPSULE PO SCH (09:44)
[2017-03-06] MEDS: MULTIVITAMIN TABLET PO SCH (09:44)
[2017-03-06] MEDS: CHOLECALCIFEROL (D3) 1,000 UNIT TABLET PO SCH (09:44)
[2017-03-06] MEDS: LANSOPRAZOLE 30 MG TAB.RAP.DR PO SCH (09:44)
[2017-03-06] MEDS: ASPIRIN 81 MG TABLET, ENT COATED PO SCH (09:44)
[2017-03-06] MEDS: FLUTICASONE NASAL SPRAY 50 MCG/SPRY 120 SPRAY/16 GM NASL SCH (09:45)
[2017-03-06] MEDS ORDERED: AMLODIPINE BESYLATE 10 MG TABLET PO SCH (10:00)
[2017-03-06] MEDS ORDERED: (PENDING PHARMACY ID) (L.Acidoph,Paracasei, B.Lactis [Probiotic] 1 CAP) PO SCH (10:00)
[2017-03-06] MEDS ORDERED: LACTOBACILLUS ACIDOPHILUS 250 MG TAB PO SCH (10:00)
[2017-03-06] MEDS ORDERED: LOSARTAN POTASSIUM 50 MG TABLET PO SCH (11:00)
--- NOTE | 2017-03-06 11:25 | PDOC DISCHARGE SUMMARY ---
General - Admit/Disc Date/PCP Admission Date/Primary Care Provider: 03/05/17 07:40 Discharge Date: 03/06/17 - Discharge Diagnosis (1) Costochondral chest pain Is this a current diagnosis for this admission?: Yes Summary: Presentation consistent with costochondritis. Patient was instructed to use NSAIDs to help with chest wall pain. Patient was seen by cardiology who also agreed with this diagnosis. (2) New onset atrial flutter Is this a current diagnosis for this admission?: Yes Summary: Ruled out: At time of admission there was concern the patient's EKG could be suggestive of atrial flutter however after closer inspection by cardiology it was determined that it was artifact. (3) Diabetes Is this a current diagnosis for this admission?: Yes Summary: Patient refused increase in Lantus dose for better glycemic control. Encourage patient to make better dietary choices. Patient stated she wanted to continue with current insulin regimen. (4) Morbid obesity with BMI of 50.0-59.9, adult Is this a current diagnosis for this admission?: Yes Summary: Encourage dietary changes and weight loss (5) IBS (irritable bowel syndrome) Is this a current diagnosis for this admission?: Yes Summary: Supportive care - Additional Information Resuscitation Status: Full Code Discharge Diet: Cardiac, Diabetic Discharge Activity: Activity As Tolerated Home Medications: Albuterol Sulfate [Proair HFA Inhalation Aerosol 8.5 gm MDI] 2 puff IH Q4HP PRN 03/05/17 Amitriptyline HCl [Elavil 25 mg Tablet] 25 mg PO QHS 03/05/17 Cholecalciferol (Vitamin D3) [Vitamin D3 1000 Unit Tablet] 1,000 units PO DAILY 03/05/17 Diazepam [Valium 5 mg Tablet] 5 mg PO DAILYP PRN 03/05/17 Fluticasone Propionate [Flonase Nasal [place] 50 Mcg/[place] 16 gm] 2 spray NASL DAILY 03/05/17 Insulin Aspart [Novolog Flexpen] 14 units SUBCUT MEALS 03/05/17 Insulin Glargine,Hum.rec.anlog [Lantus Solostar] 16 units SUBCUT BID 03/05/17 L.acidoph,Paracasei, B.lactis [Probiotic] 1 cap PO DAILY 03/05/17 Levothyroxine Sodium [Synthroid 0.15 mg Tablet] 0.15 mg PO QAM 03/05/17 Multivitamin [Daily Multiple Vitamin] 1 tab PO DAILY 03/05/17 Omeprazole 40 mg PO DAILY 03/05/17 Telmisartan [Micardis 80 mg Tablet] 80 mg PO DAILY 03/05/17 Amlodipine Besylate [Norvasc 10 mg Tablet] 10 mg PO DAILY #30 tablet 03/06/17 Atorvastatin Calcium [Lipitor 40 mg Tablet] 40 mg PO QHS #30 tablet 03/06/17 History of Present Illness Patient complains of: Chest pain History of Present Illness: BA ARIAS is a 61 year old female sent to the emergency department with complaint of chest pain. Hospital Course Hospital Course: This is a 61-year-old female that presented to the emergency room with complaint of chest pain. Patient had reported that she had been lifting heavy objects and had developed some chest discomfort. Patient reports that chest discomfort continued to worsen. Patient came to the emergency room where she had an EKG that was questionable for atrial flutter however after closer inspection it was determined that it was artifact. Patient did have a 2D echo that not demonstrated normal EF and troponins were negative. Patient was seen by cardiology and patient declined stress test. Patient was noted to have elevated blood sugars therefore patient's insulin was adjusted however patient refused increased insulin regimen and wanted to continue with her home regimen. Patient was stable at time of discharge home. Patient was noted to have elevated blood pressure during hospital stay and therefore patient was started on amlodipine for better blood pressure control. Physical Exam Vital Signs: Temp Pulse Resp BP Pulse Ox 97.9 F 78 16 141/68 H 93 03/06/17 07:42 03/06/17 07:42 03/06/17 07:42 03/06/17 07:42 03/06/17 07:42 Intake & Output 03/05/17 03/06/17 03/07/17 06:59 06:59 06:59 Intake Total 1865 Balance 1865 Weight 121.7 kg General appearance: PRESENT: no acute distress, well-developed, well-nourished Head exam: PRESENT: atraumatic, normocephalic Eye exam: PRESENT: conjunctiva pink, EOMI, PERRLA. ABSENT: scleral icterus Ear exam: PRESENT: normal external ear exam Mouth exam: PRESENT: moist, tongue midline Neck exam: ABSENT: carotid bruit, JVD, lymphadenopathy, thyromegaly Respiratory exam: PRESENT: clear to auscultation lubna. ABSENT: rales, rhonchi, wheezes Cardiovascular exam: PRESENT: RRR. ABSENT: diastolic murmur, rubs, systolic murmur Pulses: PRESENT: normal dorsalis pedis pul Vascular exam: PRESENT: normal capillary refill GI/Abdominal exam: PRESENT: normal bowel sounds, soft. ABSENT: distended, guarding, mass, organolmegaly, rebound, tenderness Rectal exam: PRESENT: deferred Extremities exam: PRESENT: full ROM. ABSENT: calf tenderness, clubbing, pedal edema Musculoskeletal exam: PRESENT: full ROM, other - Patient with chest wall pain to palpation Neurological exam: PRESENT: alert, awake, oriented to person, oriented to place , oriented to time, oriented to situation, CN II-XII grossly intact. ABSENT: motor sensory deficit Psychiatric exam: PRESENT: appropriate affect, normal mood. ABSENT: homicidal ideation, suicidal ideation Skin exam: PRESENT: dry, intact, warm. ABSENT: cyanosis, rash Results Laboratory Results: 03/05/17 08:05 Troponin I < 0.012 Impressions: Chest X-Ray 03/04/17 15:39 IMPRESSION: NO ACUTE RADIOGRAPHIC FINDING IN THE CHEST. Chest/Abdomen CTA 03/04/17 17:26 IMPRESSION: No emboli visualized in the main pulmonary arteries or the segmental branches. Plan Time Spent: Less than 30 Minutes
--- NOTE | 2017-03-06 12:12 | PDOC PROGRESS REPORT ---
Subjective Progress Note for:: 03/06/17 Subjective:: Patient seems to be doing better with gradual improvement. Pt is denying any chest arm or neck discomfort. Patient denying any PND, orthopnea. Patient denied any sustained palpitations, dizziness, syncope, near syncope. Patient denying any fever chills. Patient denying any other significant discomfort. Patient is maintaining sinus rhythm. Treadmill stress test report from [facility] reviewed. It showed no significant ischemia by EKG treadmill stress test. It was from February 2016. Review of systems: Rest review of systems negative. Medications: Medications have been reviewed. Physical Exam Vital Signs: Temp Pulse Resp BP Pulse Ox 97.9 F 78 16 141/68 H 93 03/06/17 11:39 03/06/17 11:39 03/06/17 11:39 03/06/17 07:42 03/06/17 11:39 Intake & Output 03/05/17 03/06/17 03/07/17 06:59 06:59 06:59 Intake Total 1865 Balance 1865 Weight 121.7 kg Exam: GENERAL: well-nourished and in no acute distress. Alert and oriented x3 HEAD: Atraumatic, normocephalic. EYES: Pupils equal round and reactive to light, extraocular movements intact, sclera anicteric, conjunctiva are normal. ENT: TMs normal, nares patent, oropharynx clear without exudates. Moist mucous membranes. No oral ulcerations or bleeding gums noted NECK: supple without lymphadenopathy. Trachea is central. No cervical or axillary lymphadenopathy noted. Carotids are 2+, JVD WNL LUNGS: Respiration seems nonlabored, no significant accessory muscle action noted. Breath sounds clear to auscultation bilaterally and equal noted. No wheezes rales or rhonchi noted. No significant dullness noted on percussion. CHEST: Palpation of the chest wall shows diffuse but significant chest wall tenderness. No other significant abnormalities noted. HEART: [place] [employer], No PSH, 1/6 DELTA aortic area, 1/6 cherry systolic murmur mitral area, no rubs, no gallops. ABDOMEN: Soft, no significant tenderness appreciated, normoactive bowel sounds. No guarding, no rebound. No rigidity noted . No masses appreciated. EXTREMITIES: Pedal pulses are 1-2+, no calf tenderness noted. No clubbing or cyanosis.trace to 1+ pedal edema noted NEUROLOGICAL: Focused neurological exam showed no significant neurologic deficit. Normal speech, no focal weakness appreciated. PSYCH: Normal mood, normal affect. Judgment and insight within normal limits. SKIN: No significant ecchymosis, rash, ulcerations or signs of pruritus noted. MUSCULOSKELETAL EXAM: No significant joint swelling noted. Results Laboratory Results: 03/05/17 08:05 Troponin I < 0.012 EKG Comments: Twelve-lead EKG and rhythm strips reviewed. These show patient maintaining sinus rhythm. No acute ST segment changes or any other dysrhythmia noted. Impressions: Chest X-Ray 03/04/17 15:39 IMPRESSION: NO ACUTE RADIOGRAPHIC FINDING IN THE CHEST. Chest/Abdomen CTA 03/04/17 17:26 IMPRESSION: No emboli visualized in the main pulmonary arteries or the segmental branches. Assessment & Plan - Diagnosis (1) Chest pain Qualifiers: Chest pain type: unspecified Qualified Code(s): R07.9 - Chest pain, unspecified Is this a current diagnosis for this admission?: Yes (2) Abnormal electrocardiogram Is this a current diagnosis for this admission?: Yes (3) Sleep apnea syndrome Qualifiers: Sleep apnea type: unspecified type Qualified Code(s): G47.30 - Sleep apnea , unspecified Is this a current diagnosis for this admission?: Yes (4) Asthma Qualifiers: Asthma severity: unspecified severity Asthma persistence: unspecified Asthma complication type: uncomplicated Qualified Code(s): J45.909 - Unspecified asthma, uncomplicated Is this a current diagnosis for this admission?: Yes (5) GERD (gastroesophageal reflux disease) Qualifiers: Esophagitis presence: esophagitis presence not specified Qualified Code(s) : K21.9 - Gastro-esophageal reflux disease without esophagitis Is this a current diagnosis for this admission?: Yes (6) Obesity Qualifiers: Obesity type: unspecified obesity type Body mass index: unspecified BMI Is this a current diagnosis for this admission?: Yes (7) Dyspnea Qualifiers: Dyspnea type: unspecified Qualified Code(s): R06.00 - Dyspnea, unspecified Is this a current diagnosis for this admission?: Yes - Notes Notes: Chest pain: This is felt to be atypical and most likely related to costochondritis and possible fibromyalgia. Have recommended a stress test but patient claiming previous side effects did not want to pursue it at this point. Discussed that her chest pain is most likely musculoskeletal. Recommend local and systemic analgesics. Previous stress test report was reviewed. It was negative for any EKG evidence of ischemia. Abnormal EKG strips showing atrial flutter but my review suggest that these are artifacts. Patient has been noted to be maintaining sinus rhythm. Gastroesophageal reflux disease: Recommend double dose proton pump inhibitor. Obesity: Patient has been recommended in weight loss. Sleep apnea syndrome: Discussed association of fibromyalgia and other inflammatory disorder with untreated sleep apnea. Patient encouraged to start therapy with CPAP. Asthma: Currently stable. Lungs sounded clear. Dyspnea: Most likely related to diastolic dysfunction and extreme obesity. Patient encouraged in regular walking program and weight loss. 2D echo results were reviewed with the patient. It shows normal LVEF, grade 2 diastolic dysfunction. Mild right-sided enlargement noted most likely related to obesity and possibly obesity hypoventilation syndrome. Patient has been advised close cardiology follow-up. - Time Time with patient: Greater than 35 minutes - CODE STATUS was discussed, patient remains full code. Multiple medical problems were addressed. More than 50% of the time spent coordinating care, discussing management plans with involved caregivers. Management plans discussed with involved personnels. Medical decision making was of moderate to high complexity, patient's has multiple comorbidities. Medications reviewed and adjusted accordingly: Yes
== END 2017-03-06 12:16 | disposition home or self-care (01) ==
LOC: ER 14:28 → UNDOADMOB 03-05 00:07 → EH 03-05 00:07 → 3S 03-05 02:05 → EH 03-05 07:40
PROVIDERS: ADMIT Family Medicine; ATTEND Family Medicine
PROC: 5A09357 Assistance with Respiratory Ventilation, Less than 24 Consecutive Hours, Continuous Positive Airway Pressure (ICD-10-PCS; principal; 2017-03-05)
DX: M94.0 Chondrocostal junction syndrome [Tietze] (principal); I48.92 Unspecified atrial flutter; E10.9 Type 1 diabetes mellitus without complications; E66.01 Morbid (severe) obesity due to excess calories; Z68.43 Body mass index [BMI] 50.0-59.9, adult; K58.9 Irritable bowel syndrome, unspecified; I10 Essential (primary) hypertension; J45.909 Unspecified asthma, uncomplicated; G47.33 Obstructive sleep apnea (adult) (pediatric); Z91.19 Patient's noncompliance with other medical treatment and regimen; R06.00 Dyspnea, unspecified; K21.9 Gastro-esophageal reflux disease without esophagitis; F41.1 Generalized anxiety disorder; M19.90 Unspecified osteoarthritis, unspecified site; Z79.4 Long term (current) use of insulin; Z79.899 Other long term (current) drug therapy; Z82.49 Family history of ischemic heart disease and other diseases of the circulatory system; Z87.891 Personal history of nicotine dependence; Z80.9 Family history of malignant neoplasm, unspecified; Z90.49 Acquired absence of other specified parts of digestive tract; Z90.710 Acquired absence of both cervix and uterus
CPT/HCPCS: 93005 ×2; 99285; 96374; 36415 ×2; 82553; 82962 ×2; 82550; 83735; 84443; 85025; 80053; 84484 ×2; 80061; 93306; 71010; 71275; 93010 ×2; 94660; G0378 ×2; A9270 ×21; J1644 ×2; J2060; J3490 ×2; J1815

== ENCOUNTER 2017-05-26 04:45 | Emergency (ER) | payer MEDICARE, OTHER ==
[2017-05-26] MEDS ORDERED: HYDROCODONE/ACETAMINOPHEN 5-325 MG TABLET PO ONE (05:39)
[2017-05-26] MEDS ORDERED: CLINDAMYCIN HCL 150 MG CAPSULE PO ONE (05:39)
[2017-05-26] MEDS ORDERED: LIDOCAINE 5% (700 MG) TRANSDERMAL ADH..PATCH TP ONE (05:39)
--- NOTE | 2017-05-26 05:44 | ER Document Report ---
HPI - HPI Patient complains to provider of: low back pain Onset: Yesterday Onset/Duration: Gradual Quality of pain: Sharp Pain Level: 5 Context: Patient states that she attempted to get up to go the bathroom yesterday and developed low back pain. Patient states she has had chronic low back pain off and on for several years and this is a typical presentation of flareups that she has had in the past. Patient denies any urinary retention or incontinence. Patient does report that pain radiates into bilateral hips. Patient states she has difficulty with standing completely upright as this increases her pain. Patient additionally reports that she has been managing an abscess to her labia for the past 3 weeks. Patient states her daughter has been cleansing the wound with hydrogen peroxide and applying Neosporin. Associated Symptoms: Other - Low back pain. denies: Vomiting Exacerbated by: Standing, Movement, Walking Relieved by: Denies Similar symptoms previously: Yes Recently seen / treated by doctor: No - ROS ROS below otherwise negative: Yes Systems Reviewed and Negative: Yes All other systems reviewed and negative - CONSTITUTIONAL Constitutional: DENIES: Chills - RESPIRATORY Respiratory: DENIES: Trouble Breathing, Coughing - GASTROINTESTINAL Gastrointestinal: DENIES: Nausea - REPRODUCTIVE Reproductive: DENIES: : - MUSCULOSKELETAL Musculoskeletal: REPORTS: Back Pain. DENIES: Extremity pain, Swelling - DERM Skin Color: Normal Notes: Abscess to labia Past Medical History - General Information source: Patient - Social History Smoking Status: Never Smoker Frequency of alcohol use: None Drug Abuse: None Occupation: None Lives with: Family Family History: Reviewed & Not Pertinent, Arthritis, CAD, DM, Hyperlipidemia, Hypertension, Malignancy, Thyroid Disfunction - Past Medical History Cardiac Medical History: Reports: Hx Hypertension Denies: Hx Atrial Fibrillation, Hx Congestive Heart Failure, Hx Coronary Artery Disease, Hx DVT, Hx Heart Attack, Hx Hypercholesterolemia, Hx Pulmonary Embolism Pulmonary Medical History: Reports: Hx Asthma, Hx Pneumonia, Hx Sleep Apnea - Noncompliant with home CPAP. Denies: Hx COPD Neurological Medical History: Denies: Hx Seizures Endocrine Medical History: Reports: Hx Diabetes Mellitus Type 1, Hx Hypothyroidism. Denies: Hx Diabetes Mellitus Type 2, Hx Hyperthyroidism Renal/ Medical History: Denies: Hx Peritoneal Dialysis GI Medical History: Reports: Hx Gastroesophageal Reflux Disease. Denies: Hx Cirrhosis, Hx Hepatitis Musculoskeltal Medical History: Reports Hx Arthritis Psychiatric Medical History: Denies: Hx Depression Infectious Medical History: Denies: Hx Hepatitis Past Surgical History: Reports: Hx Abdominal Surgery - abd hernia, Hx Cardiac Catheterization - -6 years ago, was reported to be negative for CAD, Hx Cholecystectomy, Hx Hysterectomy - Immunizations Immunizations up to date: No Hx Diphtheria, Pertussis, Tetanus Vaccination: No Hx Pneumococcal Vaccination: 05/31/15 Vertical Provider Document - CONSTITUTIONAL Agree With Documented VS: Yes Exam Limitations: No Limitations Notes: PHYSICAL EXAMINATION: GENERAL: Morbidly obese, appears uncomfortable HEAD: Atraumatic, normocephalic. EYES: sclera clear, anicteric, conjunctiva are normal. ENT: nares patent, Moist mucous membranes. NECK: Normal range of motion, supple no lymphadenopathy LUNGS: respirations unlabored HEART: Regular rate and rhythm without murmurs EXTREMITIES: Normal range of motion, no pitting or edema. No cyanosis. Gait normal, pt ambulates without difficulty BACK: Lower lumbar midline tenderness, lumbar paraspinal tenderness, no deformities or step-offs. No CVA tenderness. NEUROLOGICAL: Cranial nerves grossly intact. No saddle anesthesia. No foot drop. Patient able to ambulate at bedside and assisted PSYCH: Normal mood, normal affect. SKIN: Warm, Dry, patient with spontaneously draining abscess to left labia - INFECTION CONTROL TRAVEL OUTSIDE OF THE [place] IN LAST 30 DAYS: No Course - Re-evaluation Re-evalutation: 05/26/17 The patient presents with low back pain without signs of spinal cord compression , cauda equina syndrome, infection, aneurysm, or other serious etiology. The patient is neurologically intact. Given the extremely risk of these diagnoses further testing and evaluation for these possibilities does not appear to be indicated at this time. Patient has been instructed to return if the symptoms worsen or change in any way. Discharge - Discharge Clinical Impression: Abscess Low back pain Qualifiers: Chronicity: chronic Back pain laterality: unspecified Sciatica presence: with sciatica Sciatica laterality: sciatica laterality unspecified Qualified Code(s) : M54.40 - Lumbago with sciatica, unspecified side Condition: Stable Disposition: HOME, SELF-CARE Instructions: Abscess ([facility]), Clindamycin ([facility]), Ice Packs ([facility]), Low Back Pain ([facility]), Oral Narcotic Medication ([facility]) Additional Instructions: Return immediately for any new or worsening symptoms Followup with your primary care provider, call tomorrow to make a followup appointment Follow-up with pain management for further evaluation, call tomorrow for an appointment You may use topical [id number] lidocaine patches to help with your pain symptoms Prescriptions: Clindamycin HCl [Cleocin Hcl] 300 mg PO QID #28 capsule Hydrocodone/Acetaminophen [Vicodin 5-300 mg Tablet] 1 tab PO ASDIR PRN #20 tab PRN Reason: Referrals: ALEXANDRA MARTINS MD [NO LOCAL MD] - Follow up tomorrow [facility] [Provider Group] - Follow up tomorrow
== END 2017-05-26 06:14 | disposition home or self-care (01) ==
LOC: ER 04:45
DX: G89.29 Other chronic pain (principal); M54.40 Lumbago with sciatica, unspecified side; N76.4 Abscess of vulva; I10 Essential (primary) hypertension; J45.909 Unspecified asthma, uncomplicated; E10.9 Type 1 diabetes mellitus without complications; E66.01 Morbid (severe) obesity due to excess calories
CPT/HCPCS: 99283; A9270 ×2

== ENCOUNTER 2017-05-31 19:46 | Emergency (ER) | payer MEDICARE, OTHER ==
[2017-05-31 19:55] VITALS: BP 181/67
[2017-05-31] MEDS ORDERED: METHYLPREDNISOLONE INJ 40 MG/1 ML SDV IM ONE (20:39)
[2017-05-31] MEDS ORDERED: KETOROLAC TROMETHAMINE INJ/PF 30 MG/1 ML SDV IM ONE (20:39)
[2017-05-31] MEDS ORDERED: CYCLOBENZAPRINE HCL 10 MG TABLET PO ONE (20:39)
--- NOTE | 2017-05-31 20:40 | ER Document Report ---
ED General - General Chief Complaint: Back Pain Stated Complaint: BACK PAIN Time Seen by Provider: 05/31/17 20:09 Notes: Patient is a 61-year-old female who returns emergency department complaining of left lower back pain with associated sciatica. Patient admits to throwing her back out on now with left lower back pain and associated sciatica. She describes the pain as an ache in her left lower back and in her words toothache discomfort in her leg. She denies any burning, sharp stabbing pain or tearing pain. She denies any urinary stress incontinence, saddle anesthesia. She is able to stand but states that it hurts too bad to walk. Patient was initially seen here on the she followed up with her primary care doctor in the and was enables emergency department last evening. She has been prescribed Vicodin, oxycodone and Valium for her symptoms. She states that her symptoms have been persistent and if not gotten any worse or changed in any way. She states she has not been given a muscle relaxer or offered a steroid. Patient does have a history of diabetic neuropathy. At [facility] she states that she got a CT of her cervical and lumbar spine last evening and was told that she has degenerative changes in her lower back compressing on the nerves causing her pain. She denies any fevers, chills, Lower extremity weakness, recent fall, temperature changes in her leg, rash TRAVEL OUTSIDE OF THE [place] IN LAST 30 DAYS: No - Related Data Allergies/Adverse Reactions: Penicillins Allergy (Severe, Verified 03/05/17 08:29) rash Sulfa (Sulfonamide Antibiotics) Allergy (Intermediate, Verified 03/05/17 08:29) Swelling of Throat, morphine [Morphine] Adverse Reaction (Verified 03/05/17 08:29) shaking, "brain freezes" oxycodone Adverse Reaction (Verified 03/05/17 08:29) sedation Past Medical History - Social History Smoking Status: Unknown if Ever Smoked Family History: Reviewed & Not Pertinent, Arthritis, CAD, DM, Hyperlipidemia, Hypertension, Malignancy, Thyroid Disfunction Patient has suicidal ideation: No Patient has homicidal ideation: No - Past Medical History Cardiac Medical History: Reports: Hx Hypertension Denies: Hx Atrial Fibrillation, Hx Congestive Heart Failure, Hx Coronary Artery Disease, Hx DVT, Hx Heart Attack, Hx Hypercholesterolemia, Hx Pulmonary Embolism Pulmonary Medical History: Reports: Hx Asthma, Hx Pneumonia, Hx Sleep Apnea - Noncompliant with home CPAP. Denies: Hx COPD Neurological Medical History: Denies: Hx Seizures Endocrine Medical History: Reports: Hx Diabetes Mellitus Type 1, Hx Hypothyroidism. Denies: Hx Diabetes Mellitus Type 2, Hx Hyperthyroidism Renal/ Medical History: Denies: Hx Peritoneal Dialysis GI Medical History: Reports: Hx Gastroesophageal Reflux Disease. Denies: Hx Cirrhosis, Hx Hepatitis Musculoskeltal Medical History: Reports Hx Arthritis Psychiatric Medical History: Denies: Hx Depression Infectious Medical History: Denies: Hx Hepatitis Past Surgical History: Reports: Hx Abdominal Surgery - abd hernia, Hx Cardiac Catheterization - -6 years ago, was reported to be negative for CAD, Hx Cholecystectomy, Hx Hysterectomy - Immunizations Immunizations up to date: No Hx Diphtheria, Pertussis, Tetanus Vaccination: No Hx Pneumococcal Vaccination: 05/31/15 Review of Systems - Review of Systems Constitutional: No symptoms reported Cardiovascular: No symptoms reported Respiratory: No symptoms reported Physical Exam - Vital signs Vitals: Temp Pulse Resp BP Pulse Ox 97.8 F 89 16 181/67 H 98 05/31/17 19:53 05/31/17 19:53 05/31/17 19:53 05/31/17 19:53 05/31/17 19:53 - Notes Notes: PHYSICAL EXAM GENERAL: Alert, interacts well. sitting in a wheelchair able to converse with me no significant distress or discomfort HEAD: Normocephalic, atraumatic. NECK: Full range of motion. Supple. Trachea midline. Back: No spinous process tenderness, step-offs or deformities. Pain reproducible palpation of the right paralumbar musculature. Patient able to bear weight on her own and ambulate short distances within the room EXTREMITIES: Moves all 4 extremities spontaneously. No edema, radial and dorsalis pedis pulses 2/4 bilaterally. No cyanosis. NEUROLOGICAL: Alert and oriented x4. Normal speech. PSYCH: Normal affect, normal mood. SKIN: Warm, dry, normal turgor. No rashes or lesions noted. Course - Re-evaluation Re-evalutation: 05/31/172229 Patient is a 61-year-old female who is hemodynamically stable, no acute distress and afebrile. The patient presents with low back pain without signs of spinal cord compression, cauda equina syndrome, infection, aneurysm, or other serious etiology. The patient is neurologically intact. Given the extremely low risk of these diagnoses further testing and evaluation for these possibilities does not appear to be indicated at this time. The patient has been instructed to return if the symptoms worsen or change in any way. - Vital Signs Vital signs: Temp Pulse Resp BP Pulse Ox 97.8 F 89 16 181/67 H 98 05/31/17 19:53 05/31/17 19:53 05/31/17 19:53 05/31/17 19:53 05/31/17 19:53 Discharge - Discharge Clinical Impression: Low back pain Qualifiers: Chronicity: acute Back pain laterality: left Sciatica presence: with sciatica Sciatica laterality: sciatica of left side Qualified Code(s): M54.42 - Lumbago with sciatica, left side Condition: Good Disposition: HOME, SELF-CARE Additional Instructions: LOW BACK PAIN: Three out of every four people will have an episode of disabling back pain during their lifetime. Most commonly the pain is due to straining of the muscles and ligaments in the low back. Usual treatment includes: (1) Rest on a firm surface. Avoid lying on your stomach. (2) Ice pack the painful area. After a few days, gentle heat may be used intermittently to relax the area, or ice packs can be continued. (3) Medication may be needed -- muscle relaxers and antiinflammatory medicines are commonly used. (4) As the back improves, exercises are prescribed to strengthen the back and abdominal muscles. Your doctor will advise you on the proper care for your back at each stage in your recovery. You may be better in a few days -- or healing may take several weeks. If new symptoms of a "herniated disc" (radiation of pain, numbness, or tingling down the back of the leg or weakness in the leg) occur, you should be re-examined. Further testing may be necessary. PAIN MEDICATION INJECTION: You have received an injection of a pain medication. You should experience significant pain relief within 45 minutes. If this injection was a narcotic -- it will impair your judgement, slow your reaction time and make you sleepy (as well as relieve your pain). Narcotics also can cause nausea. You should not drive, work with machinery, or perform any task requiring mental alertness until all effects of the medication are gone -- six to eight hours. Do not take any alcohol, or sedatives, and do not take any other medication without checking with your physician. MUSCLE RELAXERS: Muscle relaxing medications are usually prescribed for acute muscle spasm or injury to the neck and back. They are often combined with antiinflammatory pain medication for increased relief. You may stop the muscle relaxer when the pain and stiffness have improved. Start the medication again if spasms recur. Muscle relaxers may cause drowsiness, especially with the first dose. Do not operate machinery or drive while under the effects of the medication. Most muscle relaxers last up to 24 hours. Do not combine the medication with alcohol. ICE PACKS: Apply ice packs frequently against the painful area. Many different schedules are recommended, such as "20 minutes on, 20 minutes off" or "one hour ice, two hours rest." If you need to work, you may need to go longer between ice treatments. You should plan to have the area ice packed AT LEAST one fourth of the time. The ice should be applied over the wrap, tape, or splint, or over a layer of cloth -- not directly against the skin. Some ice bags have a built-in cloth and can be put directly on the skin. WARM PACKS: After approximately two days, apply gentle heat (such as a heating pad or hot water bottle) for about 20 to 30 minutes about every two hours -- at least four times daily. Warmth and elevation will help you make a more rapid recovery , and will ease the pain considerably. Do not use HOT heat, and never apply heat for longer than 30 minutes. The continuous heat can invisibly damage skin and muscles -- even when no burn is seen on the surface. Damaged muscles can make you MORE sore. FOLLOW-UP CARE: If you have been referred to a physician for follow-up care, call the physician s office for an appointment as you were instructed or within the next two days. If you experience worsening or a significant change in your symptoms, notify the physician immediately or return to the Emergency Department at any time for re-evaluation. Prescriptions: Ketorolac Tromethamine [Toradol 10 mg Tablet] 10 mg PO Q8HP PRN #20 tablet PRN Reason: Cyclobenzaprine HCl [Flexeril 10 mg Tablet] 10 mg PO TIDP PRN #15 tab PRN Reason: Gabapentin [Neurontin 300 mg Capsule] 300 mg PO Q12 #60 capsule Methylprednisolone [Medrol Dosepack (4 mg/Tab) 21 Tab/Dosepak] 4 mg PO ASDIR PRN #21 tab.ds.pk PRN Reason: Forms: Elevated Blood Pressure
[2017-05-31] MEDS ORDERED: OXYCODONE HCL IR 5 MG TABLET PO ONE (22:02)
[2017-05-31] MEDS ORDERED: GABAPENTIN 300 MG CAPSULE PO ONE (22:02)
== END 2017-05-31 22:15 | disposition home or self-care (01) ==
LOC: ER 19:46
DX: M54.42 Lumbago with sciatica, left side (principal); E10.40 Type 1 diabetes mellitus with diabetic neuropathy, unspecified; I10 Essential (primary) hypertension; Z88.0 Allergy status to penicillin; Z88.2 Allergy status to sulfonamides; Z88.5 Allergy status to narcotic agent; J45.909 Unspecified asthma, uncomplicated
CPT/HCPCS: 99283; 96372; A9270 ×3; J2920; J1885

== ENCOUNTER 2017-06-12 01:36 | Emergency (ER) | payer MEDICARE, OTHER ==
[2017-06-12] MEDS ORDERED: LORAZEPAM INJ 2 MG/1 ML VIAL IV ONE (02:01)
[2017-06-12] MEDS ORDERED: ACETAMINOPHEN 325 MG TABLET PO ONE (02:03)
[2017-06-12] MEDS ORDERED: METHOCARBAMOL INJ/PF 1000 MG/10 ML SDV IV ONE (02:03)
--- NOTE | 2017-06-12 02:15 | ER Document Report ---
ED General - General Chief Complaint: Chest Wall Pain Stated Complaint: CHEST PAIN Time Seen by Provider: 06/12/17 01:55 Notes: Patient is a 61-year-old female who presents with complaint of pain in the left side of her back that radiates around her left ribs and her anterior chest. Patient says she has had this pain was actually recently admitted to hospital because of severe back pain. She then was discharged to rehab facility where she is now at. At the rehab facility today they were trying to get her to ambulate to do physical therapy. She says she did not want to stand up she says that they forced her to stand up. She said he grabbed her arm to try to pick her up and since then she has been having pain that radiates from her back and around the left side of her chest. She says why at the [facility] she received Robaxin which did help. She said that they also give her Valium but this did not help much. She does admit that she has a history of anxiety disorder but does not take anything for her. On her med list from the snf she does have Percocet ordered as needed however the patient says she is allergic to Percocet and opiate medications. Patient did receive Dilaudid by the paramedics and patient says she cannot receive this other opiates because it "makes my brain feel cold". She has no other complaints at this time. TRAVEL OUTSIDE OF THE [place] IN LAST 30 DAYS: No - Related Data Allergies/Adverse Reactions: Penicillins Allergy (Severe, Verified 03/05/17 08:29) rash Sulfa (Sulfonamide Antibiotics) Allergy (Intermediate, Verified 03/05/17 08:29) Swelling of Throat, morphine [Morphine] Adverse Reaction (Verified 03/05/17 08:29) shaking, "brain freezes" oxycodone Adverse Reaction (Verified 03/05/17 08:29) sedation Past Medical History - Social History Smoking Status: Unknown if Ever Smoked Frequency of alcohol use: None Drug Abuse: None Family History: Reviewed & Not Pertinent, Arthritis, CAD, DM, Hyperlipidemia, Hypertension, Malignancy, Thyroid Disfunction Patient has suicidal ideation: No Patient has homicidal ideation: No - Past Medical History Cardiac Medical History: Reports: Hx Hypertension Denies: Hx Atrial Fibrillation, Hx Congestive Heart Failure, Hx Coronary Artery Disease, Hx DVT, Hx Heart Attack, Hx Hypercholesterolemia, Hx Pulmonary Embolism Pulmonary Medical History: Reports: Hx Asthma, Hx Pneumonia, Hx Sleep Apnea - Noncompliant with home CPAP. Denies: Hx COPD Neurological Medical History: Denies: Hx Seizures Endocrine Medical History: Reports: Hx Diabetes Mellitus Type 1, Hx Hypothyroidism. Denies: Hx Diabetes Mellitus Type 2, Hx Hyperthyroidism Renal/ Medical History: Denies: Hx Peritoneal Dialysis GI Medical History: Reports: Hx Gastroesophageal Reflux Disease. Denies: Hx Cirrhosis, Hx Hepatitis Musculoskeltal Medical History: Reports Hx Arthritis Psychiatric Medical History: Denies: Hx Depression Infectious Medical History: Denies: Hx Hepatitis Past Surgical History: Reports: Hx Abdominal Surgery - abd hernia, Hx Cardiac Catheterization - -6 years ago, was reported to be negative for CAD, Hx Cholecystectomy, Hx Hysterectomy - Immunizations Immunizations up to date: No Hx Diphtheria, Pertussis, Tetanus Vaccination: No Hx Pneumococcal Vaccination: 05/31/15 Review of Systems - Review of Systems Notes: My Normal Review Basic REVIEW OF SYSTEMS: CONSTITUTIONAL : Denies fever, chills, or sweats. Denies recent illness. EENT: Denies eye, ear, throat, or mouth pain or symptoms. Denies nasal or sinus congestion. CARDIOVASCULAR: Left-sided chest pain. RESPIRATORY: Denies cough, cold, or chest congestion. Denies shortness of breath, difficulty breathing, or wheezing. GASTROINTESTINAL: Denies abdominal pain. Denies nausea, vomiting, or diarrhea. Denies constipation. Last BM: MUSCULOSKELETAL: Left sided back pain. SKIN: Denies rash or skin lesions. NEUROLOGICAL: Denies altered mental status or loss of consciousness. Denies headache. Denies weakness or paralysis or loss of use of either side. Denies problems with gait or speech. Denies sensory or motor loss. PSYCHIATRIC: Patient admits to some stress and anxiety. ALL OTHER SYSTEMS REVIEWED AND NEGATIVE. Physical Exam - Vital signs Vitals: Temp Pulse Resp BP Pulse Ox 98.4 F 88 18 152/55 H 98 06/12/17 01:48 06/12/17 01:48 06/12/17 01:48 06/12/17 01:48 06/12/17 01:48 - Notes Notes: General Appearance: Well nourished, alert, easily agitated and very anxious appearing. , no acute distress, moderate obvious discomfort. Vitals: reviewed, See vital signs table. Head: no swelling or tenderness to the head Eyes: PERRL, EOMI, Conjuctiva clear Mouth: No decreasd moisture Lungs: No wheezing, No rales, No rhonci, No accessory muscle use, good air exchange bilaterally. Heart: Normal rate, Regular rythm, No murmur, no rub Chest wall: She has tenderness palpation over the anterior left side of the chest wall as well as around the left ribs and left back. Back: Patient has pain to palpation over the left side of her thoracic spine which patient says she has had since she was admitted at [facility]. Abdomen: Normal BS, soft, No rigidity, No abdominal tenderness, No guarding, no rebound, no abdominal masses, no organomegaly Extremities: strength 5/5 in all extremities, good pulses in all extremities, no swelling or tenderness in the extremities, no edema. Skin: warm, dry, appropriate color, no rash Neuro: speech clear, oriented x 3, normal affect, responds appropriately to questions. Course - Re-evaluation Re-evalutation: 06/12/17 04:26 Patient's EKG and cardiac enzymes are negative. Patient's pain is very much muscular skeletal on exam and per the history. Is easily reducible palpation into movement. Patient seems more emotionally upset than anything. She seems very upset that they try to get her up to stand move around while at the sn[facility]. This seemed to be when on her pain exacerbated. I did give her a dose Robaxin she said this helped her at the hospital. Also give her a very small dose of 0.25 mg of Ativan which the patient says helped the most. Initially they tried to get a chest x-ray on her however the patient was very anxious and agitated and would not move for them due to chest x-ray. Patient is on much more calm. I do not think chest x-rays at this time as her lung silva are completely clear and she is now much more comfortable just from treatment mainly of her anxiety. I do not suspect pneumothorax or pulmonary edema or pneumonia. I do not think chest x-ray is further warranted at this time. At this time I feel patient is safe to be discharged home. I encourage patient return to ER if she has recurrent worsening pain or feels unwell. Patient agrees with plan will be discharged home. Dictation of this chart was performed using voice recognition software; therefore, there may be some unintended grammatical errors. - Vital Signs Vital signs: Temp Pulse Resp BP Pulse Ox 98.4 F 88 19 122/60 92 06/12/17 01:48 06/12/17 01:48 06/12/17 03:03 06/12/17 03:03 06/12/17 03:03 - Laboratory Result Diagrams: 06/12/17 02:10 06/12/17 02:10 Laboratory results interpreted by me: 06/12/17 06/12/17 02:10 02:10 RDW 15.4 H Monocytes % 13.9 H Eosinophils % 6.8 H BUN 25 H Glucose 111 H AST 62 H ALT 74 H - EKG Interpretation by Me Additional EKG results interpreted by me: 06/12/17 02:14 EKG is reviewed and interpreted by me. EKG shows normal sinus rhythm with rate of [address] segment elevation or depression. No ischemic T-wave inversions. ID interval, QRS duration, QTc intervals are within normal range. Old EKG for comparison is from March 05, 2017. Discharge - Discharge Clinical Impression: Anxiety Chest pain Qualifiers: Chest pain type: unspecified Qualified Code(s): R07.9 - Chest pain, unspecified Back pain Qualifiers: Back pain location: thoracic back pain Chronicity: chronic Back pain laterality : left Qualified Code(s): M54.6 - Pain in thoracic spine Condition: Good Disposition: HOME, SELF-CARE Additional Instructions: Please take the Ativan only as needed for anxiety. Please follow up with your doctor on Wednesday or Wednesday for reevaluation. Please return to the ER immediately if you have severe worsening pain, difficulty breathing, or feel unwell. Prescriptions: Lorazepam [Ativan 0.5 mg Tablet] 0.25 mg PO Q8 #21 tab Methocarbamol [Robaxin 500 mg Tablet] 500 mg PO BID #14 tablet
[2017-06-12 02:23] LABS: ABSOLUTE EOSINOPHILS # (AUTO) 0.3 10^3/uL (0.0-0.6); ABSOLUTE MONOCYTES (AUTO) 0.7 10^3/uL (0.1-1.4); ABSOLUTE NEUT (AUTO) 2.8 10^3/uL (1.7-8.2); BASOPHILS % (AUTO) 0.4 % (0-2); EOSINOPHILS % (AUTO) 6.8 % (0-6); HEMATOCRIT 37.8 % (36.0-47.0); HEMOGLOBIN 12.6 g/dL (12.0-15.5); MEAN CORPUSCULAR HEMOGLOBIN 28.7 pg (27.0-33.4); MEAN CORPUSCULAR HGB CONC 33.4 g/dL (32.0-36.0); MEAN CORPUSCULAR VOLUME 86 fl (80-97); MONOCYTES % (AUTO) 13.9 % (3-13); PLATELET COUNT 224 10^3/uL (150-450); RED BLOOD COUNT 4.41 10^6/uL (3.72-5.28); RED CELL DISTRIBUTION WIDTH 15.4 % (11.5-14.0); SEGMENTED NEUTROPHILS % (AUTO) 57.9 % (42-78); TOTAL CELLS COUNTED % (AUTO) 100 %; WHITE BLOOD COUNT 4.8 10^3/uL (4.0-10.5)
[2017-06-12 02:45] LABS: ALANINE AMINOTRANSFERASE 74 U/L (9-52); ALBUMIN 3.7 g/dL (3.5-5.0); ALKALINE PHOSPHATASE 118 U/L (38-126); ANION GAP 10 (5-19); ASPARTATE AMINO TRANSFERASE 62 U/L (14-36); BILIRUBIN,DIRECT 0.2 mg/dL (0.0-0.4); BILIRUBIN,TOTAL 0.5 mg/dL (0.2-1.3); BLOOD UREA NITROGEN 25 mg/dL (7-20); CALCIUM 9.9 mg/dL (8.4-10.2); CARBON DIOXIDE 29 mmol/L (22-30); CHLORIDE 103 mmol/L (98-107); CREATINE KINASE 85 U/L (30-135); GLUCOSE 111 mg/dL (75-110); POTASSIUM 4.2 mmol/L (3.6-5.0); SODIUM 142.3 mmol/L (137-145); TOTAL PROTEIN 6.7 g/dL (6.3-8.2)
[2017-06-12 02:56] LABS: CREATINE KINASE MB 1.08 ng/mL (<4.55)
[2017-06-12 03:01] LABS: TROPONIN I < 0.012 ng/mL
[2017-06-12 03:45] VITALS: BP 122/60
--- NOTE | 2017-06-12 09:26 | EKG REPORT ---
SEVERITY:- NORMAL ECG - SINUS RHYTHM : Confirmed by: Erasmo Tavares MD 12-Jun-2017 09:25:44
== END 2017-06-12 04:57 | disposition home or self-care (01) ==
LOC: ER 01:36
DX: F41.9 Anxiety disorder, unspecified (principal); M54.6 Pain in thoracic spine; R07.89 Other chest pain; I10 Essential (primary) hypertension; J45.909 Unspecified asthma, uncomplicated; Z88.0 Allergy status to penicillin; Z88.2 Allergy status to sulfonamides
CPT/HCPCS: 93005; 99285; 96374; 96375; 36415; 82553; 82550; 85025; 80053; 84484; 93010; A9270; J2800; J2060

== ENCOUNTER 2017-06-13 09:44 | Emergency (ER) | payer MEDICARE, OTHER ==
--- NOTE | 2017-06-13 10:01 | ER Document Report ---
HPI - HPI Context: 61-year-old nonambulatory obese female came by ambulance from [place] because Dr. Fleming is not prescribing her pain medication, she states because she does not have the Vicodin she is unable to move in bed, sit on side of bed, or ambulate She has been having back pain for over 3 weeks. She was hospitalized at [facility] they discharged her non ambulatory with degenerative disc disease and 2 herniated disks evaluated by x-ray and CT. An MRI was not done. Denies any new symptoms than when she was evaluated for a week at [facility]. - REPRODUCTIVE Reproductive: DENIES: : Past Medical History - General Information source: Patient - Social History Smoking Status: Unknown if Ever Smoked Frequency of alcohol use: None Drug Abuse: None Lives with: [facility] Family History: Reviewed & Not Pertinent, Arthritis, CAD, DM, Hyperlipidemia, Hypertension, Malignancy, Thyroid Disfunction - Past Medical History Cardiac Medical History: Reports: Hx Hypertension Pulmonary Medical History: Reports: Hx Asthma, Hx Pneumonia, Hx Sleep Apnea - Noncompliant with home CPAP. Endocrine Medical History: Reports: Hx Diabetes Mellitus Type 1, Hx Hypothyroidism Renal/ Medical History: Denies: Hx Peritoneal Dialysis GI Medical History: Reports: Hx Gastroesophageal Reflux Disease Musculoskeltal Medical History: Reports Hx Arthritis, Reports Other - recent dx degenerative disc and 2 herniated Lumbar discs Psychiatric Medical History: Denies: Hx Depression Infectious Medical History: Denies: Hx Hepatitis Past Surgical History: Reports: Hx Abdominal Surgery - abd hernia, Hx Cardiac Catheterization - -6 years ago, was reported to be negative for CAD, Hx Cholecystectomy, Hx Hysterectomy - Immunizations Immunizations up to date: No Hx Diphtheria, Pertussis, Tetanus Vaccination: No Hx Pneumococcal Vaccination: 05/31/15 Vertical Provider Document - CONSTITUTIONAL Agree With Documented VS: Yes Exam Limitations: No Limitations General Appearance: No Apparent Distress - lying on right side stating she can' t move due to low back pain, states physical therapy pulls her and nurses not careful at [facility]. - INFECTION CONTROL TRAVEL OUTSIDE OF THE [place] IN LAST 30 DAYS: No - HEENT HEENT: Normocephalic - NECK Neck: Supple - RESPIRATORY Respiratory: Breath Sounds Normal, No Respiratory Distress - CARDIOVASCULAR Cardiovascular: Regular Rate, Regular Rhythm - GI/ABDOMEN Gastrointestinal: Abdomen Soft, Abdomen Non-Tender Notes: morbidly obese - BACK Back: Normal Inspection Notes: tender lumbar mid central spine-pt cries out to touch, cries and states she can' t move to get on her back, able to move all extremities. - MUSCULOSKELETAL/EXTREMETIES Musculoskeletal/Extremeties: MAEW, Tender - see above, No Edema Notes: light touch normal to feet, 5+ strength to gt toe dorsiflexion and foot eversion - NEURO Level of Consciousness: Awake, Alert Motor/Sensory: No Motor Deficit, No Sensory Deficit Deep Tendon Reflexes: 2+ - lubna. patellar, unable to get reflexes in either ankle - DERM Integumentary: No Rash Course - Re-evaluation Re-evalutation: 06/13/17 12:[address] Fleming over the phone and is okay with me prescribing Vicodin for her. Discharge - Discharge Clinical Impression: chronic low back pain, Hx deg disc and herniated discs, Morbid obesity with BMI of 50.0-59.9, adult Disposition: REHAB FACILITY Instructions: Arthritis ([facility]), Low Back Pain ([facility]), Oral Narcotic Medication ( [facility]), Warm Packs ([facility]) Additional Instructions: pain mediation prescriptions [facility] any worsening of symptoms Prescriptions: Hydrocodone Bit/Acetaminophen [Hydrocodon-Acetaminophen 5-325] 1 each PO Q4HP PRN #20 tablet PRN Reason: Referrals: SAKSHI FLEMING MD [Primary Care Provider] - Follow up as needed
[2017-06-13] MEDS ORDERED: HYDROCODONE/ACETAMINOPHEN 5-325 MG TABLET PO ONE (10:17)
[2017-06-13 13:13] VITALS: BP 155/81
== END 2017-06-13 12:50 ==
LOC: ER 09:44
DX: G89.29 Other chronic pain (principal); M54.5 Low back pain; E66.01 Morbid (severe) obesity due to excess calories; Z68.43 Body mass index [BMI] 50.0-59.9, adult; I10 Essential (primary) hypertension; E10.9 Type 1 diabetes mellitus without complications; E03.9 Hypothyroidism, unspecified
CPT/HCPCS: 99283; A9270

== ENCOUNTER 2017-10-03 06:26 | Emergency (ER) | payer MEDICARE, OTHER ==
[2017-10-03 07:36] LABS: ANION GAP 14 (5-19); BLOOD UREA NITROGEN 36 mg/dL (7-20); CALCIUM 9.2 mg/dL (8.4-10.2); CARBON DIOXIDE 22 mmol/L (22-30); CHLORIDE 107 mmol/L (98-107); GLUCOSE 197 mg/dL (75-110); POTASSIUM 4.4 mmol/L (3.6-5.0); SODIUM 143.1 mmol/L (137-145)
[2017-10-03 07:45] LABS: ABSOLUTE BASOPHILS # (AUTO) 0.1 10^3/uL (0.0-0.2); ABSOLUTE EOSINOPHILS # (AUTO) 0.4 10^3/uL (0.0-0.6); ABSOLUTE LYMPHOCYTES (AUTO) 1.2 10^3/uL (0.5-4.7); ABSOLUTE MONOCYTES (AUTO) 0.9 10^3/uL (0.1-1.4); ABSOLUTE NEUT (AUTO) 3.5 10^3/uL (1.7-8.2); BASOPHILS % (AUTO) 0.9 % (0-2); EOSINOPHILS % (AUTO) 6.4 % (0-6); HEMATOCRIT 34.4 % (36.0-47.0); HEMOGLOBIN 11.4 g/dL (12.0-15.5); LYMPHOCYTES % (AUTO) 20.3 % (13-45); MEAN CORPUSCULAR HEMOGLOBIN 28.8 pg (27.0-33.4); MEAN CORPUSCULAR HGB CONC 33.2 g/dL (32.0-36.0); MEAN CORPUSCULAR VOLUME 87 fl (80-97); MONOCYTES % (AUTO) 14.7 % (3-13); RED BLOOD COUNT 3.97 10^6/uL (3.72-5.28); RED CELL DISTRIBUTION WIDTH 15.1 % (11.5-14.0); SEGMENTED NEUTROPHILS % (AUTO) 57.7 % (42-78); TOTAL CELLS COUNTED % (AUTO) 100 %; WHITE BLOOD COUNT 6.1 10^3/uL (4.0-10.5)
--- NOTE | 2017-10-03 08:01 | ER Document Report ---
ED General - General Chief Complaint: Leg Swelling Stated Complaint: LEG SWELLING Time Seen by Provider: 10/03/17 06:49 TRAVEL OUTSIDE OF THE [place] IN LAST 30 DAYS: No - HPI Patient complains to provider of: Bilateral leg swelling Notes: Patient coming in for bilateral leg swelling. Patient has history of spinal cord injury many months ago did go to [place] for rehab patient states mostly she is wheelchair-bound ambulates very little throughout the day has had increased swelling in her lower extremities states she has not performed any elevation of her legs at nighttime states that she sleeps in a chair. Patient also complains of bilateral calf pain. Patient states did follow-up PCP requesting a water pill however this was declined. Patient denies history of CHF. Patient otherwise resting currently upon my evaluation. No recent travel no recent trauma - Related Data Allergies/Adverse Reactions: Penicillins Allergy (Severe, Verified 03/05/17 08:29) rash Sulfa (Sulfonamide Antibiotics) Allergy (Intermediate, Verified 03/05/17 08:29) Swelling of Throat, morphine [Morphine] Adverse Reaction (Verified 03/05/17 08:29) shaking, "brain freezes" oxycodone Adverse Reaction (Verified 03/05/17 08:29) sedation Past Medical History - Social History Smoking Status: Former Smoker Chew tobacco use (# tins/day): No Frequency of alcohol use: Rare Drug Abuse: None Family History: Reviewed & Not Pertinent, Arthritis, CAD, DM, Hyperlipidemia, Hypertension, Malignancy, Thyroid Disfunction Patient has suicidal ideation: No Patient has homicidal ideation: No - Past Medical History Cardiac Medical History: Reports: Hx Hypertension Denies: Hx Atrial Fibrillation, Hx Congestive Heart Failure, Hx Coronary Artery Disease, Hx DVT, Hx Heart Attack, Hx Hypercholesterolemia, Hx Pulmonary Embolism Pulmonary Medical History: Reports: Hx Asthma, Hx Pneumonia, Hx Sleep Apnea - Noncompliant with home CPAP. Denies: Hx COPD Neurological Medical History: Denies: Hx Seizures Endocrine Medical History: Reports: Hx Diabetes Mellitus Type 1, Hx Diabetes Mellitus Type 2, Hx Hypothyroidism. Denies: Hx Hyperthyroidism Renal/ Medical History: Denies: Hx Peritoneal Dialysis GI Medical History: Reports: Hx Gastroesophageal Reflux Disease. Denies: Hx Cirrhosis, Hx Hepatitis Musculoskeltal Medical History: Reports Hx Arthritis Psychiatric Medical History: Denies: Hx Depression Infectious Medical History: Denies: Hx Hepatitis Past Surgical History: Reports: Hx Abdominal Surgery - abd hernia, Hx Cardiac Catheterization - -6 years ago, was reported to be negative for CAD, Hx Cholecystectomy, Hx Hysterectomy - Immunizations Immunizations up to date: No Hx Diphtheria, Pertussis, Tetanus Vaccination: No Hx Pneumococcal Vaccination: 05/31/15 Review of Systems - Review of Systems Constitutional: No symptoms reported EENT: No symptoms reported Cardiovascular: No symptoms reported Respiratory: No symptoms reported Gastrointestinal: No symptoms reported Genitourinary: No symptoms reported Female Genitourinary: No symptoms reported Musculoskeletal: Other - Lower leg edema Skin: No symptoms reported Hematologic/Lymphatic: No symptoms reported Neurological/Psychological: No symptoms reported -: Yes All other systems reviewed and negative Physical Exam - Vital signs Vitals: Temp Pulse Resp BP Pulse Ox 97.9 F 80 18 104/66 96 10/03/17 06:38 10/03/17 06:38 10/03/17 06:38 10/03/17 06:38 10/03/17 06:38 Interpretation: Normal - General General appearance: Appears well, Alert - HEENT Head: Normocephalic, Atraumatic Eyes: Normal Pupils: PERRL - Respiratory Respiratory status: No respiratory distress Chest status: Nontender Breath sounds: Normal Chest palpation: Normal - Cardiovascular Rhythm: Regular Heart sounds: Normal auscultation Murmur: No - Abdominal Inspection: Normal, Obese Distension: No distension Bowel sounds: Normal Tenderness: Nontender Organomegaly: No organomegaly - Back Back: Normal, Nontender - Extremities General upper extremity: Normal inspection, Nontender, Normal color, Normal ROM , Normal temperature General lower extremity: Normal inspection, Nontender, Edema - Patient with 2+ edema on the left 1+ on the right, Normal color, Normal temperature - Neurological Neuro grossly intact: Yes Cognition: Normal Orientation: AAOx4 Susan Coma Scale Eye Opening: Spontaneous Underwood Coma Scale Verbal: Oriented [place]wood Coma Scale Motor: Obeys Commands Underwood Coma Scale Total: 15 Speech: Normal Motor strength normal: LUE, RUE, LLE, RLE Sensory: Normal - Psychological Associated symptoms: Normal affect, Normal mood - Skin Skin Temperature: Warm Skin Moisture: Dry Skin Color: Normal Course - Re-evaluation Re-evalutation: 10/03/17 15:16 No signs of DVT. Patient left lites otherwise look within normal limits. Offered Lasix patient request adequate thiazide. Do believe this is suitable to have the patient was intolerant also discussed with patient use of compression stockings. Highly recommended that the patient try to elevate her legs and that she can. Patient is understanding prefer care discharged home. - Vital Signs Vital signs: Temp Pulse Resp BP Pulse Ox 98.0 F 74 18 142/54 H 99 10/03/17 11:09 10/03/17 11:09 10/03/17 11:09 10/03/17 11:09 10/03/17 11:09 - Laboratory Result Diagrams: 10/03/17 07:12 10/03/17 07:12 Laboratory results interpreted by me: 10/03/17 10/03/17 07:12 07:12 Hgb 11.4 L Hct 34.4 L RDW 15.1 H Monocytes % 14.7 H Eosinophils % 6.4 H BUN 36 H Glucose 197 H Discharge - Discharge Clinical Impression: Dependent edema Condition: Good Disposition: HOME, SELF-CARE Instructions: Dependent Edema ([facility]), Edema, Peripheral ([facility]) Additional Instructions: Your workup today she is no acute pathology. Swelling in legs more likely dependent edema basically fluid pulled down by gravity. I will highly recommend trying to elevate her legs at night. Also recommend wearing compression stockings. I will give you a 5 day supply of hydrochlorothiazide to help possibly remove some his fluid from the extremities. He may also massage her legs to aid in movement of fluid. Return to ER symptoms worsen follow-up with primary care physician. Prescriptions: Compress.stocking,Knee,Reg,Lrg [Relief Knee Open Toe] 1 each MC DAILY #1 each Hydrochlorothiazide 25 mg PO DAILY #5 tablet Ibuprofen [Motrin 800 mg Tablet] 800 mg PO Q8H PRN #30 tab PRN Reason:
[2017-10-03 08:26] LABS: PLATELET COUNT 228 10^3/uL (150-450)
--- NOTE | 2017-10-03 11:10 | RADIOLOGY REPORT (SQ) ---
EXAM DESCRIPTION: VENOUS BILATERAL LOWER COMPLETED DATE/TIME: 10/03/2017 10:58 am REASON FOR STUDY: bilateral swelling L>R calf pain COMPARISON: None. TECHNIQUE: Dynamic and static tang scale and color images acquired of both lower extremity venous sy stems. Selected spectral images acquired with additional compression and augmentation maneuvers. Imag es stored on PACS. LIMITATIONS: Patient positioning. Unable to visualize distal femoral veins or peroneal veins. FINDINGS: RIGHT LEG COMMON FEMORAL AND FEMORAL: Normal phasicity, compression and augmentation. No visualized echogenic m aterial on tang scale. No defects on color images. POPLITEAL: Normal compression and augmentation. No visualized echogenic material on tang scale. No de fects on color images. CALF VESSELS: Normal compression and augmentation. No visualized echogenic material on tang scale. No defects on color image. GSV AND SSV: Normal compression. No visualized echogenic material on tang scale. No defects on color images. ANY DEEP VENOUS INSUFFICIENCY: Not evaluated. ANY EVIDENCE OF POPLITEAL CYST: No. OTHER: No other significant finding. LEFT LEG COMMON FEMORAL AND FEMORAL: Normal phasicity, compression and augmentation. No visualized echogenic m aterial on tang scale. No defects on color images. POPLITEAL: Normal compression and augmentation. No visualized echogenic material on tang scale. No de fects on color images. CALF VESSELS: Normal compression and augmentation. No visualized echogenic material on tang scale. No defects on color images. GSV AND SSV: Normal compression. No visualized echogenic material on tang scale. No defects on color images. ANY DEEP VENOUS INSUFFICIENCY: Not evaluated. ANY EVIDENCE POPLITEAL CYST: No. OTHER: No other significant finding. IMPRESSION: NO EVIDENCE DVT OR SVT IN EITHER LEG. LIMITATIONS ABOVE. TECHNICAL DOCUMENTATION: JOB ID: [id number] [employer] Website- All Rights Reserved Reading location - IP/workstation name: [email or web address]
[2017-10-03 11:13] VITALS: BP 142/54
== END 2017-10-03 11:29 | disposition home or self-care (01) ==
LOC: ER 06:26
DX: R60.0 Localized edema (principal); M79.661 Pain in right lower leg; M79.662 Pain in left lower leg; I10 Essential (primary) hypertension; J45.909 Unspecified asthma, uncomplicated; E11.9 Type 2 diabetes mellitus without complications; Z88.0 Allergy status to penicillin; Z88.2 Allergy status to sulfonamides; Z87.891 Personal history of nicotine dependence
CPT/HCPCS: 36415; 80048; 85025; 93970; 99284

== ENCOUNTER 2017-12-04 21:52 | Emergency (ER) | payer MEDICARE, OTHER ==
[2017-12-04] MEDS ORDERED: LIDOCAINE 2% JELLY 5 ML TUBE TOP ONE (23:03)
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
[2017-12-04 23:16] VITALS: BP 145/75
== END 2017-12-04 23:16 | disposition home or self-care (01) ==
LOC: ER 21:52
DX: S81.802A Unspecified open wound, left lower leg, initial encounter (principal); S81.801A Unspecified open wound, right lower leg, initial encounter; X58.XXXA Exposure to other specified factors, initial encounter; I10 Essential (primary) hypertension; E11.9 Type 2 diabetes mellitus without complications
CPT/HCPCS: 99283

== ENCOUNTER 2017-12-14 22:18 | Emergency (ER) | payer MEDICARE, OTHER | END 2017-12-14 22:30 | disposition left against medical advice (07) | LOC: ER 22:18 | DX: Z53.21 Procedure and treatment not carried out due to patient leaving prior to being seen by health care provider (principal) ==

== ENCOUNTER → 2017-12-29 | Outpatient (CLI) | payer MEDICARE, OTHER ==
--- NOTE | 2018-01-01 11:55 | XCELERA REPORT ---
[address] [address] Lower Extremity Arterial Evaluation Name: BA ARIAS Age: 62 yrs Gender: Female : 1955 Patient Status: Outpatient Patient Location: Study Date: 12/29/2017 10:19 AM Procedure: A color flow and duplex scan of the lower extremity arteries was performed bilaterally with velocity and waveform anaylsis. Reason For Study: ULCER Ordering Physician: PRIYANKA ESPINOZA Performed By: Ralph Pemberton Measurements and Calculations Right Left PETROLEUM INSPECTOR SUPERVISOR PSV 216.6 157.1 cm/sec Prox PFA PSV -116.3 -132.0 cm/sec Prox SFA PSV 142.4 125.0 cm/sec Mid SFA PSV -158.1 -143.0 cm/sec Prox Pop A PSV -80.0 61.6 cm/sec Prox WILMAN PSV 16.5 cm/sec Dist WILMAN PSV 32.6 89.9 cm/sec Dist ALLIGATOR SHEAR OPERATOR PSV 12.8 14.5 cm/sec Walter Pedis PSV 147.4 -69.5 cm/sec Right Side Arterial Evaluation Difficult imaging due to patient in sitting position and body habitus. Normal velocity and triphasic waveforms noted in the Common Femoral artery. Biphasic with well preserved velocities, in the Dorsalis Pedis. Otherwise low velocity in the infrageniculate vessel. 20-49% stenosis at the infrageniculate vessels. Ankle Brachial index not obtained, patient declined. Left Side Arterial Evaluation Difficult imaging due to patient in sitting position and body habitus. Normal velocity and triphasic waveforms noted in the Common Femoral artery. Biphasic with well preserved velocities, in the Anterior Tibial. Biphasic with diminished velocity in the Posterior Tibial artery. 20-49% stenosis at the infrageniculate vessels. Ankle Brachial index not obtained, patient declined. Interpretation Summary Moderate hemodynamically significant lesions in the bilateral lower extremities, on duplex imaging, at rest. Unusual pattern of velocity in the right. Suggestive of difficulty in imaging. : PRIYANKA ESPINOZA > Andrew Weston
== END ==
LOC: SP 09:26
PROVIDERS: ATTEND Nurse Practitioner
DX: L97.222 Non-pressure chronic ulcer of left calf with fat layer exposed (principal)
CPT/HCPCS: 93925

== ENCOUNTER 2018-01-31 07:21 | Emergency (ER) | payer MEDICARE, OTHER ==
--- NOTE | 2018-01-31 07:33 | ER Document Report ---
ED General - General Chief Complaint: Leg Pain Stated Complaint: BOTH LEG PAIN Time Seen by Provider: 01/31/18 07:32 Mode of Arrival: Wheelchair Information source: Patient Notes: 62-year-old female complaining of bilateral stabbing lower leg pain that started 1 hour after a new type of dressing was applied at the wound care clinic on . She has hydrocodone 10 mg at home which is not relieving the pain. She also states that she has been straining to have a bowel movement she has small bowel movement this morning and feels like she is constipated. She states she cannot stand the pain in her legs anymore. These are chronic leg ulcers. No fever or chills. No abdominal pain. No nausea or vomiting. No chest pain or shortness of breath. TRAVEL OUTSIDE OF THE [place] IN LAST 30 DAYS: No - Related Data Allergies/Adverse Reactions: Penicillins Allergy (Severe, Verified 03/05/17 08:29) rash Sulfa (Sulfonamide Antibiotics) Allergy (Intermediate, Verified 03/05/17 08:29) Swelling of Throat, morphine [Morphine] Adverse Reaction (Verified 03/05/17 08:29) shaking, "brain freezes" oxycodone Adverse Reaction (Verified 03/05/17 08:29) sedation Past Medical History - General Information source: Patient - Social History Smoking Status: Unknown if Ever Smoked Lives with: Spouse/Significant other Family History: Reviewed & Not Pertinent, Arthritis, CAD, DM, Hyperlipidemia, Hypertension, Malignancy, Thyroid Disfunction - Past Medical History Cardiac Medical History: Reports: Hx Hypertension Pulmonary Medical History: Reports: Hx Asthma, Hx Pneumonia, Hx Sleep Apnea - Noncompliant with home CPAP. Endocrine Medical History: Reports: Hx Diabetes Mellitus Type 1, Hx Diabetes Mellitus Type 2, Hx Hypothyroidism GI Medical History: Reports: Hx Gastroesophageal Reflux Disease Musculoskeletal Medical History: Reports Hx Arthritis Past Surgical History: Reports: Hx Abdominal Surgery - abd hernia, Hx Cardiac Catheterization - -6 years ago, was reported to be negative for CAD, Hx Cholecystectomy, Hx Hysterectomy - Immunizations Immunizations up to date: No Hx Diphtheria, Pertussis, Tetanus Vaccination: No Hx Pneumococcal Vaccination: 05/31/15 Review of Systems - Review of Systems Constitutional: No symptoms reported EENT: No symptoms reported Cardiovascular: No symptoms reported Respiratory: No symptoms reported Gastrointestinal: See HPI Genitourinary: No symptoms reported Female Genitourinary: No symptoms reported Musculoskeletal: See HPI Skin: See HPI Hematologic/Lymphatic: No symptoms reported Neurological/Psychological: No symptoms reported Physical Exam - Vital signs Vitals: Temp Pulse Resp BP Pulse Ox 97.6 F 95 20 163/72 H 99 01/31/18 07:25 01/31/18 07:25 01/31/18 07:01/31/18 07:01/31/18 07:25 Interpretation: Normal Notes: Morbidly obese - General General appearance: Appears well, Alert, Anxious - HEENT Head: Normocephalic, Atraumatic Eyes: Normal Pupils: PERRL Neck: Supple - Respiratory Respiratory status: No respiratory distress Chest status: Nontender Breath sounds: Normal Chest palpation: Normal - Cardiovascular Rhythm: Regular Heart sounds: Normal auscultation Murmur: No - Abdominal Inspection: Morbidly Obese Distension: No distension Bowel sounds: Normal Tenderness: Nontender Organomegaly: No organomegaly - Back Back: Normal, Nontender - Extremities General upper extremity: Normal inspection, Nontender, Normal color, Normal ROM , Normal temperature General lower extremity: Normal inspection, Nontender, Normal color, Normal ROM , Normal temperature, Normal weight bearing. No: Pearl's sign Notes: Bilateral lower legs with multiple ovoid shallow ulcerations with some exudate. When the dressings were removed the patient states that her legs look better than . 2+ bilateral DP. - Neurological Neuro grossly intact: Yes Cognition: Normal Orientation: AAOx4 [place] Coma Scale Eye Opening: Spontaneous [place] Coma Scale Verbal: Oriented [place] Coma Scale Motor: Obeys Commands Susan Coma Scale Total: 15 Speech: Normal Motor strength normal: LUE, RUE, LLE, RLE Sensory: Normal - Psychological Associated symptoms: Normal affect, Normal mood - Skin Skin Temperature: Warm Skin Moisture: Dry Skin Color: Normal Skin irregularity: other - Ulcerations see above Course - Re-evaluation Re-evalutation: 01/31/18 08:50 Patient wants to take the mag citrate at home and her pain level dropped considerably after the Dilaudid and feels like she can go home. - Vital Signs Vital signs: Temp Pulse Resp BP Pulse Ox 97.6 F 95 20 163/72 H 99 01/31/18 07:25 01/31/18 07:01/31/18 07:01/31/18 07:25 01/31/18 07:25 Discharge - Discharge Clinical Impression: Chronic pain of lower extremity, bilateral, bilateral lower leg ulcers Constipation Qualifiers: Constipation type: other constipation type Qualified Code(s): K59.09 - Other constipation Condition: Good Disposition: HOME, SELF-CARE Instructions: Constipation ([facility]), Foot or Leg Ulcer ([facility]) Additional Instructions: Take full capful of MiraLAX daily with 8 ox water See the wound care clinic tomorrow as planned Return to the emergency room for any worsening of the symptoms you may also take over the counter stool softner daily especially while you are on pain mediation Referrals: PRIYANKA ESPINOZA, CORPORATE TECHNICAL RECRUITER [Primary Care Provider] - Follow up as needed
[2018-01-31] MEDS ORDERED: HYDROMORPHONE HCL INJ/PF 2 MG/ML AMPULE IV ONE (08:13)
[2018-01-31] MEDS ORDERED: ONDANSETRON HCL INJ/PF 4 MG/2 ML SDV IV ONE (08:13)
[2018-01-31] MEDS ORDERED: MAGNESIUM CITRATE 296 ML BOTTLE PO ONE (08:15)
[2018-01-31] MEDS ORDERED: KETOROLAC TROMETHAMINE INJ/PF 30 MG/1 ML SDV IV ONE (08:15)
[2018-01-31 09:19] VITALS: BP 135/55
== END 2018-01-31 09:21 | disposition home or self-care (01) ==
LOC: ER 07:21
DX: L97.929 Non-pressure chronic ulcer of unspecified part of left lower leg with unspecified severity (principal); L97.919 Non-pressure chronic ulcer of unspecified part of right lower leg with unspecified severity; K59.09 Other constipation; M79.604 Pain in right leg; M79.605 Pain in left leg; G89.29 Other chronic pain; Z79.899 Other long term (current) drug therapy; I10 Essential (primary) hypertension; E11.9 Type 2 diabetes mellitus without complications
CPT/HCPCS: 99283; 96374; 96375; J3490; J1885; J1170; J2405

== ENCOUNTER 2018-02-08 22:01 | Emergency (ER) | payer MEDICARE, OTHER ==
[2018-02-09 00:30] LABS: APPEARANCE,URINE CLOUDY; BILIRUBIN,URINE NEGATIVE (NEGATIVE); COLOR,URINE YELLOW; GLUCOSE, URINE NEGATIVE (NEGATIVE); KETONES,URINE NEGATIVE (NEGATIVE); LEUKOCYTE ESTERASE,URINE LARGE (NEGATIVE); NITRITE,URINE NEGATIVE (NEGATIVE); PROTEIN,URINE 100 mg/dL (NEGATIVE); URINE SPECIFIC GRAVITY 1.015; UROBILINOGEN,URINE NEGATIVE mg/dL (<2.0)
[2018-02-09] MEDS ORDERED: CEPHALEXIN 500 MG CAPSULE PO ONE (00:34)
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
[2018-02-09 00:52] VITALS: BP 148/59
== END 2018-02-09 00:58 | disposition home or self-care (01) ==
LOC: ER 22:01
DX: N39.0 Urinary tract infection, site not specified (principal); R31.9 Hematuria, unspecified; I83.009 Varicose veins of unspecified lower extremity with ulcer of unspecified site; L97.919 Non-pressure chronic ulcer of unspecified part of right lower leg with unspecified severity; L97.929 Non-pressure chronic ulcer of unspecified part of left lower leg with unspecified severity; E11.9 Type 2 diabetes mellitus without complications; I10 Essential (primary) hypertension; J45.909 Unspecified asthma, uncomplicated; Z79.899 Other long term (current) drug therapy; Z88.0 Allergy status to penicillin; Z88.2 Allergy status to sulfonamides
CPT/HCPCS: 99283; 87086; 87088; 81001; 87186; A9270

== ENCOUNTER 2018-02-28 17:42 | Emergency (ER) | payer MEDICARE, OTHER ==
[2018-02-28 18:11] VITALS: BP 143/49
[2018-02-28] MEDS ORDERED: DIAZEPAM 5 MG TABLET PO ONE (18:41)
--- NOTE | 2018-02-28 18:45 | ER Document Report ---
ED Medical Screen (RME) - General Chief Complaint: Skin Tear(s) Stated Complaint: RIGHT LEG INJURY Time Seen by Provider: 02/28/18 18:41 Mode of Arrival: Ambulatory Information source: Patient, [facility] Records Notes: 62-year-old female with diabetes presents with lower extremity cramping. Patient has been undergoing wound care for some time for bilateral lower extremity wounds. She states that she missed her wound care appointment this morning. Her leg cramping is new, severe and causes her to be unable to walk. I have greeted and performed a rapid initial assessment of this patient. A comprehensive ED assessment and evaluation of the patient, analysis of test results and completion of medical decision making process we will be contacted by additional ED providers. PHYSICAL EXAMINATION: Vital signs reviewed GENERAL: Well-appearing, well-nourished and in no acute distress. LUNGS: No respiratory distress Musculoskeletal: Normal range of motion NEUROLOGICAL: Normal speech, normal gait. PSYCH: Normal mood, normal affect. SKIN: Bilateral lower extremity erythema, multiple oozing wounds. TRAVEL OUTSIDE OF THE [place] IN LAST 30 DAYS: No - HPI Onset: Yesterday Onset/Duration: Sudden Quality of pain: Cramping Severity: Moderate Associated Symptoms: denies: Chest pain, Fever, Shortness of breath Exacerbated by: Movement, Walking Relieved by: Denies Similar symptoms previously: Yes Recently seen / treated by doctor: Yes - Related Data Smoking: Non-smoker Frequency of alcohol use: None Drug Abuse: None Allergies/Adverse Reactions: Penicillins Allergy (Severe, Verified 03/05/17 08:29) rash Sulfa (Sulfonamide Antibiotics) Allergy (Intermediate, Verified 03/05/17 08:29) Swelling of Throat, morphine [Morphine] Adverse Reaction (Verified 03/05/17 08:29) shaking, "brain freezes" oxycodone Adverse Reaction (Verified 03/05/17 08:29) sedation Past Medical History - Social History Chew tobacco use (# tins/day): No Frequency of alcohol use: None Drug Abuse: None - Past Medical History Cardiac Medical History: Reports: Hx Hypertension Denies: Hx Atrial Fibrillation, Hx Congestive Heart Failure, Hx Coronary Artery Disease, Hx DVT, Hx Heart Attack, Hx Hypercholesterolemia, Hx Pulmonary Embolism Pulmonary Medical History: Reports: Hx Asthma, Hx Pneumonia, Hx Sleep Apnea - Noncompliant with home CPAP. Denies: Hx COPD Neurological Medical History: Denies: Hx Seizures Endocrine Medical History: Reports: Hx Diabetes Mellitus Type 1, Hx Diabetes Mellitus Type 2, Hx Hypothyroidism. Denies: Hx Hyperthyroidism Renal/ Medical History: Denies: Hx Peritoneal Dialysis GI Medical History: Reports: Hx Gastroesophageal Reflux Disease. Denies: Hx Cirrhosis, Hx Hepatitis Musculoskeltal Medical History: Reports Hx Arthritis Psychiatric Medical History: Denies: Hx Depression Infectious Medical History: Denies: Hx Hepatitis Past Surgical History: Reports: Hx Abdominal Surgery - abd hernia, Hx Cardiac Catheterization - -6 years ago, was reported to be negative for CAD, Hx Cholecystectomy, Hx Hysterectomy - Immunizations Immunizations up to date: No Hx Diphtheria, Pertussis, Tetanus Vaccination: No History of Influenza Vaccine for 02/2017 - 07/2017 Season: Yes Influenza Administration Date for 02/2017 - 07/2017 Season: 02/25/17 Physical Exam - Vital signs Vitals: Temp Pulse Resp BP Pulse Ox 98.1 F 85 16 143/49 H 97 02/28/18 18:07 02/28/18 18:07 02/28/18 18:07 02/28/18 18:07 02/28/18 18:07 Course - Vital Signs Vital signs: Temp Pulse Resp BP Pulse Ox 98.1 F 85 16 143/49 H 97 02/28/18 18:07 02/28/18 18:07 02/28/18 18:07 02/28/18 18:07 02/28/18 18:07 Doctor's Discharge - Discharge Referrals: PRIYANKA ESPINOZA [facility] [Primary Care Provider] - Follow up as needed
[2018-02-28 19:53] LABS: ANION GAP 13 (5-19); BLOOD UREA NITROGEN 54 mg/dL (7-20); CALCIUM 9.4 mg/dL (8.4-10.2); CARBON DIOXIDE 17 mmol/L (22-30); CHLORIDE 112 mmol/L (98-107); GLUCOSE 131 mg/dL (75-110); POTASSIUM 5.1 mmol/L (3.6-5.0); SODIUM 141.7 mmol/L (137-145)
--- NOTE | 2018-02-28 20:58 | ER Document Report ---
ED General - General Chief Complaint: Skin Tear(s) Stated Complaint: RIGHT LEG INJURY Time Seen by Provider: 02/28/18 18:41 Mode of Arrival: Ambulatory Notes: Patient is a 62-year-old female that presents to the emergency department for chief complaint of leg pain. Patient states that she went to [facility] today, to follow-up for a wound care evaluation for her bilateral lower extremity chronic wounds that she has had for about 2 months, and when she was getting out of the truck she scraped her right inner leg, causing significant pain which triggered spasming in her leg as well. She has been getting treatments for wound care in the area around [place], but wanted a second opinion so this is why she went to [facility]. At this time she currently rates her pain as a 9 out of 10, and worse when her leg starts spasming, she describes as a ache and occasionally sharp sensation in her right leg, that is constant in nature. She denies noting any recent fevers, chills, night sweats, nausea, vomiting, chest pain or shortness of breath. She states that the wounds are essentially unchanged from prior. Past Medical History: Chronic low back pain, diabetes mellitus, hypertension, hyperlipidemia, chronic venous stasis and ulcers Past Surgical History: Cholecystectomy Social History: Former smoker, denies alcohol or drug use. Family History: Reviewed and noncontributory for presenting illness Allergies: Reviewed, see documented allergy list. REVIEW OF SYSTEMS: Unless otherwise stated in this report the patient's positive and negative responses for review of systems for constitutional, eyes, ENT, cardiovascular, respiratory, gastrointestinal, neurological, genitourinary, musculoskeletal, and integumentary systems and related systems to the presenting problem are either as stated in the HPI or were not pertinent or were negative for the symptoms and/or complaints related to the presenting medical problem. PHYSICAL EXAMINATION: Vital signs reviewed, nursing noted reviewed. GENERAL: Obese elderly female, appears uncomfortable HEAD: Atraumatic, normocephalic. EYES: Eyes appear normal, extraocular movements intact, sclera anicteric, conjunctiva are normal. ENT: nares patent, oropharynx clear without exudates. Moist mucous membranes. NECK: Normal range of motion, supple without lymphadenopathy LUNGS: Breath sounds clear to auscultation bilaterally and equal. No wheezes rales or rhonchi. HEART: Regular rate and rhythm without murmurs ABDOMEN: Soft, nontender, normoactive bowel sounds. No rebound, guarding, or rigidity. No masses appreciated. EXTREMITIES: Bilateral lower extremities, have 1+ edema, and multiple chronic stasis ulcers, with granulation tissue, but appear to be chronic, and no evidence of acute infection. The patient does have a abrasion to the right lower extremity, where she had her injury today, no deep laceration requiring wound repair. Both lower extremities are tender to palpate, and have surrounding erythema around the chronic ulcers, but again no active pus drainage or concern for acute infection. NEUROLOGICAL: No focal neurological deficits. Moves all extremities spontaneously Motor and sensory grossly intact on exam. PSYCH: Appears uncomfortable, but normal mood, and appropriate SKIN: Warm, Dry, normal turgor, no rashes or lesions noted on exposed skin TRAVEL OUTSIDE OF THE [place] IN LAST 30 DAYS: No - Related Data Allergies/Adverse Reactions: Penicillins Allergy (Severe, Verified 03/05/17 08:29) rash Sulfa (Sulfonamide Antibiotics) Allergy (Intermediate, Verified 03/05/17 08:29) Swelling of Throat, morphine [Morphine] Adverse Reaction (Verified 03/05/17 08:29) shaking, "brain freezes" oxycodone Adverse Reaction (Verified 03/05/17 08:29) sedation Past Medical History - General Information source: Patient, [facility] Records - Social History Smoking Status: Former Smoker Chew tobacco use (# tins/day): No Frequency of alcohol use: None Drug Abuse: None Family History: Reviewed & Not Pertinent, Arthritis, CAD, DM, Hyperlipidemia, Hypertension, Malignancy, Thyroid Disfunction Patient has suicidal ideation: No Patient has homicidal ideation: No - Past Medical History Cardiac Medical History: Reports: Hx Hypertension Denies: Hx Atrial Fibrillation, Hx Congestive Heart Failure, Hx Coronary Artery Disease, Hx DVT, Hx Heart Attack, Hx Hypercholesterolemia, Hx Pulmonary Embolism Pulmonary Medical History: Reports: Hx Asthma, Hx Pneumonia, Hx Sleep Apnea - Noncompliant with home CPAP. Denies: Hx COPD Neurological Medical History: Denies: Hx Seizures Endocrine Medical History: Reports: Hx Diabetes Mellitus Type 1, Hx Diabetes Mellitus Type 2, Hx Hypothyroidism. Denies: Hx Hyperthyroidism Renal/ Medical History: Denies: Hx Peritoneal Dialysis GI Medical History: Reports: Hx Gastroesophageal Reflux Disease. Denies: Hx Cirrhosis, Hx Hepatitis Musculoskeletal Medical History: Reports Hx Arthritis Psychiatric Medical History: Denies: Hx Depression Infectious Medical History: Denies: Hx Hepatitis Past Surgical History: Reports: Hx Abdominal Surgery - abd hernia, Hx Cardiac Catheterization - -6 years ago, was reported to be negative for CAD, Hx Cholecystectomy, Hx Hysterectomy - Immunizations Immunizations up to date: No Hx Diphtheria, Pertussis, Tetanus Vaccination: No Hx Pneumococcal Vaccination: 05/31/15 Physical Exam - Vital signs Vitals: Temp Pulse Resp BP Pulse Ox 98.1 F 85 16 143/49 H 97 02/28/18 18:07 02/28/18 18:07 02/28/18 18:07 02/28/18 18:07 02/28/18 18:07 Course - Re-evaluation Re-evalutation: Patient seen and examined vital signs reviewed. Laboratory data and imaging were ordered as appropriate for the patient's presenting symptoms and complaint, with consideration of any critical or life threatening conditions that may be associated with their obtained history and exam as noted above. Patient was treated with Toradol, Valium, and Robaxin for her pain and muscle spasms, and her wounds were redressed Results were reviewed when available and demonstrated slight hyperkalemia 5.1, without renal impairment, patient advised to drink plenty of fluids The patient was re-evaluated and was improved Evaluation was most consistent with chronic venous stasis ulcers, abrasion to the right leg, leg pain, patient will be prescribed Keflex given that she has a new injury to her chronic lower extremity edema and wounds, will have her follow -up with the wound center, she has an appointment in 2 days, she will be given a prescription for Percocet to take for pain. Patient is agreeable to this plan of care. Results were discussed with the patient at this point, after careful consideration I feel that that patient can be discharged from the emergency department, the patient was educated treatments and reasons to return to the emergency department based on their presumed diagnosis as noted above, they were advised to followup with a primary care physician in 2-3 days. Patient was agreeable to plan of care. *Note is created using voice recognition software and may contain spelling, syntax or grammatical errors. Laboratory 02/28/18 19:11 Sodium 141.7 Potassium 5.1 H Chloride 112 H Carbon Dioxide 17 L Anion Gap 13 BUN 54 H Creatinine 1.11 Est GFR ( Amer) > 60 Est GFR (Non-Af Amer) 49 L Glucose 131 H Calcium 9.4 Magnesium 1.8 - Vital Signs Vital signs: Temp Pulse Resp BP Pulse Ox 98.1 F 85 16 143/49 H 97 02/28/18 18:07 02/28/18 18:07 02/28/18 18:07 02/28/18 18:07 02/28/18 18:07 - Laboratory Result Diagrams: 02/28/18 19:11 Laboratory results interpreted by me: 02/28/18 19:11 Potassium 5.1 H Chloride 112 H Carbon Dioxide 17 L BUN 54 H Est GFR (Non-Af Amer) 49 L Glucose 131 H Discharge - Discharge Clinical Impression: Leg pain Qualifiers: Laterality: right Qualified Code(s): M79.604 - Pain in right leg Leg ulcer Qualifiers: Laterality: unspecified laterality Non-pressure ulcer stage: unspecified non- pressure ulcer stage Qualified Code(s): L97.909 - Non-pressure chronic ulcer of unspecified part of unspecified lower leg with unspecified severity Condition: Stable Disposition: HOME, SELF-CARE Instructions: Foot or Leg Ulcer ([facility]) Additional Instructions: Please take antibiotics as prescribed, take the pain medication as needed, and please follow-up with the wound care at your appointment on Wednesday. Prescriptions: Cephalexin Monohydrate [Keflex 500 mg Capsule] 500 mg PO Q8H 7 Days #21 capsule Oxycodone HCl/Acetaminophen [Percocet 5-325 mg Tablet] 1 tab PO Q8H PRN #15 tab PRN Reason: general pain Referrals: PRIYANKA ESPINOZA, [facility] [[facility]IED HEALTH PROFESSIONAL] - Follow up in 3-5 days
[2018-02-28] MEDS ORDERED: KETOROLAC TROMETHAMINE INJ/PF 30 MG/1 ML SDV IV ONE (21:32)
[2018-02-28] MEDS ORDERED: CEPHALEXIN 500 MG CAPSULE PO ONE (21:33)
[2018-02-28] MEDS ORDERED: METHOCARBAMOL 500 MG TABLET PO ONE (21:43)
== END 2018-02-28 23:00 | disposition home or self-care (01) ==
LOC: ER 17:42
DX: E11.622 Type 2 diabetes mellitus with other skin ulcer (principal); L97.929 Non-pressure chronic ulcer of unspecified part of left lower leg with unspecified severity; L97.919 Non-pressure chronic ulcer of unspecified part of right lower leg with unspecified severity; S80.811A Abrasion, right lower leg, initial encounter; W22.8XXA Striking against or struck by other objects, initial encounter; Y93.89 Activity, other specified; E87.5 Hyperkalemia; M62.838 Other muscle spasm; I10 Essential (primary) hypertension; J45.909 Unspecified asthma, uncomplicated; R60.0 Localized edema; E66.9 Obesity, unspecified; Z87.891 Personal history of nicotine dependence; Z88.0 Allergy status to penicillin; Z88.2 Allergy status to sulfonamides
CPT/HCPCS: 99283; 96374; 36415; 83735; 80048; A9270 ×3; J1885

== ENCOUNTER 2018-03-14 04:19 | Emergency (ER) | payer MEDICARE, OTHER ==
[2018-03-14] MEDS ORDERED: FENTANYL CITRATE INJ/PF 100 MCG/2 ML AMPUL IV ONE (05:40)
[2018-03-14] MEDS ORDERED: OXYCODONE-ACETAMINOPHEN 5-325 MG TABLET PO ONE (05:40)
--- NOTE | 2018-03-14 05:40 | ER Document Report ---
ED Medical Screen (RME) - General TRAVEL OUTSIDE OF THE [place] IN LAST 30 DAYS: No <VINCENT ONOFRE - Last Filed: 03/14/18 06:18> <GABRIELA FIERRO - Last Filed: 03/14/18 06:43> - General Chief Complaint: Leg Pain Stated Complaint: LEG PAIN Time Seen by Provider: 03/14/18 05:06 Notes: 62-year-old female who presents to the emergency department today with complaints of bilateral leg pain. Patient had ulcerations debrided at [facility] approximately 10 days ago. Patient was seen again 5 days ago by the surgeon for increasing pain which patient states "they did nothing" for. Patient was prescribed Percocet for her pain but ran out and they did not feel it was necessary to write her any more pain medicine according to the patient. Patient states she took [place] that she had at home which did not relieve her pain. I have greeted and performed a rapid initial assessment of this patient. A comprehensive ED assessment and evaluation of the patient, analysis of test results, and completion of the medical decision making process will be conducted by additional ED providers. Review of systems: Constitutional: No symptoms reported EENT: No symptoms reported Cardiovascular: No symptoms reported Respiratory: No symptoms reported Gastrointestinal: No symptoms reported Genitourinary: No symptoms reported Musculoskeletal: Muscle spasm of bilateral legs Skin: Bilateral leg pain Hematologic/Lymphatic: No symptoms reported Neurological/Psychological: No symptoms reported Yes All other systems reviewed and negative Physical Exam: General: Alert, appears well. HEENT: Normocephalic. Atraumatic. PERRLA. Extraocular movements intact. Oropharynx clear. Neck: Supple. Respiratory: No respiratory distress. Abdominal: Normal Inspection. No distension. Extremities: Moves all four extremities. Neurological: Normal cognition. AAOx4. Normal speech. Psychological: Normal affect. Normal Mood. Skin: Multiple areas of skin breakdown to bilateral lower extremities with gross erythema. Open ulcerations to bilateral lower extremities. Purulent discharge with exudate to the ulcerations with small amounts of granulation tissue present. (VINCENT ONOFRE) - Related Data Allergies/Adverse Reactions: Penicillins Allergy (Severe, Verified 03/14/18 06:08) rash Sulfa (Sulfonamide Antibiotics) Allergy (Intermediate, Verified 03/14/18 06:08) Swelling of Throat, morphine [Morphine] Adverse Reaction (Verified 03/14/18 06:08) shaking, "brain freezes" oxycodone Adverse Reaction (Verified 03/05/17 08:29) sedation Past Medical History - Past Medical History Cardiac Medical History: Reports: Hx Hypertension Denies: Hx Atrial Fibrillation, Hx Congestive Heart Failure, Hx Coronary Artery Disease, Hx DVT, Hx Heart Attack, Hx Hypercholesterolemia, Hx Pulmonary Embolism Pulmonary Medical History: Reports: Hx Asthma, Hx Pneumonia, Hx Sleep Apnea - Noncompliant with home CPAP. Denies: Hx COPD Neurological Medical History: Denies: Hx Seizures Endocrine Medical History: Reports: Hx Diabetes Mellitus Type 1, Hx Diabetes Mellitus Type 2, Hx Hypothyroidism. Denies: Hx Hyperthyroidism Renal/ Medical History: Denies: Hx Peritoneal Dialysis GI Medical History: Reports: Hx Gastroesophageal Reflux Disease. Denies: Hx Cirrhosis, Hx Hepatitis Musculoskeltal Medical History: Reports Hx Arthritis Psychiatric Medical History: Denies: Hx Depression Infectious Medical History: Denies: Hx Hepatitis Past Surgical History: Reports: Hx Abdominal Surgery - abd hernia, Hx Cardiac Catheterization - -6 years ago, was reported to be negative for CAD, Hx Cholecystectomy, Hx Hysterectomy - Immunizations Immunizations up to date: No Hx Diphtheria, Pertussis, Tetanus Vaccination: No History of Influenza Vaccine for 02/2017 - 07/2017 Season: Yes Influenza Administration Date for 02/2017 - 07/2017 Season: 02/25/17 <VINCENT ONOFRE - Last Filed: 03/14/18 06:18> - Vital signs Vitals: Temp Pulse Resp BP Pulse Ox 98 F 98 23 H 154/98 H 98 03/14/18 04:25 03/14/18 04:25 03/14/18 04:25 03/14/18 04:25 03/14/18 04:25 Course - Laboratory Result Diagrams: 03/14/18 05:45 03/14/18 05:45 <VINCENT ONOFRE - Last Filed: 03/14/18 06:18> - Laboratory Result Diagrams: 03/14/18 05:45 03/14/18 05:45 <GABRIELA FIERRO - Last Filed: 03/14/18 06:43> - Vital Signs Vital signs: Temp Pulse Resp BP Pulse Ox 98 F 98 18 171/97 H 100 03/14/18 04:25 03/14/18 04:25 03/14/18 05:57 03/14/18 05:57 03/14/18 05:57 - Laboratory Laboratory results interpreted by me: 03/14/18 03/14/18 03/14/18 05:35 05:45 05:45 RBC 3.71 L Hgb 9.9 L Hct 30.1 L MCH 26.6 L RDW 18.1 H Lymphocytes % 10.8 L VBG pH Sodium 136.9 L Potassium 5.3 H Carbon Dioxide 19 L BUN 61 H Est GFR (Non-Af Amer) 51 L Glucose 318 H POC Glucose 324 H Direct Bilirubin 0.5 H 03/14/18 05:45 RBC Hgb Hct MCH RDW Lymphocytes % VBG pH 7.29 L Sodium Potassium Carbon Dioxide BUN Est GFR (Non-Af Amer) Glucose POC Glucose Direct Bilirubin Scribe Documentation - Scribe Written by Scribe:: Mildred Carrasco, 03/14/2018 0624 acting as scribe for :: Shadia <VINCENT ONOFRE - Last Filed: 03/14/18 06:18>
--- NOTE | 2018-03-14 05:44 | RADIOLOGY REPORT (SQ) ---
EXAM: Two view(s) of the bilateral tibia and fibula. INDICATION: Pain. COMPARISON: None. FINDINGS: No acute fracture or dislocation. No erosion or periosteal reaction. Vascular calcifications are noted No large soft tissue swelling. IMPRESSION: 1. No acute fracture.
[2018-03-14 06:06] LABS: ABSOLUTE BASOPHILS # (AUTO) 0.1 10^3/uL (0.0-0.2); ABSOLUTE EOSINOPHILS # (AUTO) 0.2 10^3/uL (0.0-0.6); ABSOLUTE LYMPHOCYTES (AUTO) 0.9 10^3/uL (0.5-4.7); ABSOLUTE MONOCYTES (AUTO) 0.7 10^3/uL (0.1-1.4); ABSOLUTE NEUT (AUTO) 6.1 10^3/uL (1.7-8.2); BASOPHILS % (AUTO) 0.8 % (0-2); EOSINOPHILS % (AUTO) 3.1 % (0-6); HEMATOCRIT 30.1 % (36.0-47.0); HEMOGLOBIN 9.9 g/dL (12.0-15.5); LYMPHOCYTES % (AUTO) 10.8 % (13-45); MEAN CORPUSCULAR HEMOGLOBIN 26.6 pg (27.0-33.4); MEAN CORPUSCULAR HGB CONC 32.8 g/dL (32.0-36.0); MEAN CORPUSCULAR VOLUME 81 fl (80-97); MONOCYTES % (AUTO) 9.3 % (3-13); PLATELET COUNT 368 10^3/uL (150-450); RED BLOOD COUNT 3.71 10^6/uL (3.72-5.28); RED CELL DISTRIBUTION WIDTH 18.1 % (11.5-14.0); TOTAL CELLS COUNTED % (AUTO) 100 %
[2018-03-14 06:12] LABS: INTERNATIONAL RATION (INR) 0.99; PROTHROMBIN TIME 13.6 SEC (11.4-15.4)
[2018-03-14 06:22] LABS: ALANINE AMINOTRANSFERASE 25 U/L (9-52); ALKALINE PHOSPHATASE 124 U/L (38-126); ANION GAP 14 (5-19); ASPARTATE AMINO TRANSFERASE 19 U/L (14-36); BILIRUBIN,DIRECT 0.5 mg/dL (0.0-0.4); BILIRUBIN,TOTAL 0.8 mg/dL (0.2-1.3); BLOOD UREA NITROGEN 61 mg/dL (7-20); CALCIUM 9.5 mg/dL (8.4-10.2); CARBON DIOXIDE 19 mmol/L (22-30); CHLORIDE 104 mmol/L (98-107); GLUCOSE 318 mg/dL (75-110); POTASSIUM 5.3 mmol/L (3.6-5.0); SODIUM 136.9 mmol/L (137-145)
[2018-03-14 06:32] LABS: VENOUS BLOOD BASE EXCESS -4.7 mmol/L; VENOUS BLOOD HCO3 22.1 mmol/L (20-32); VENOUS BLOOD PCO2 47.4 mmHg (35-63); VENOUS BLOOD PH 7.29 (7.30-7.42)
[2018-03-14] MEDS ORDERED: NORMAL SALINE 1000 ML 1,000 ML IV ONE (06:45)
--- NOTE | 2018-03-14 06:50 | ER Document Report ---
ED General - General Chief Complaint: Leg Pain Stated Complaint: LEG PAIN Time Seen by Provider: 03/14/18 05:06 Cannot obtain history due to: Unstable vital signs Notes: 62-year-old female who presents to the emergency department today with complaints of bilateral leg pain. Patient had ulcerations debrided at [facility] approximately 10 days ago. Patient was seen again 5 days ago by the surgeon for increasing pain which patient states "they did nothing" for. Patient was prescribed Percocet for her pain but ran out and they did not feel it was necessary to write her any more pain medicine according to the patient. Patient states she took [place] that she had at home which did not relieve her pain. The last 3-4 months. She has been under care of wound care. She initially was under wound care here locally but ended up leaving and now is being cared for in [place]. Spoke with the states the patient is always struggled with chronic pain issues. TRAVEL OUTSIDE OF THE [place] IN LAST 30 DAYS: No - Related Data Allergies/Adverse Reactions: Penicillins Allergy (Severe, Verified 03/14/18 06:08) rash Sulfa (Sulfonamide Antibiotics) Allergy (Intermediate, Verified 03/14/18 06:08) Swelling of Throat, morphine [Morphine] Adverse Reaction (Verified 03/14/18 06:08) shaking, "brain freezes" Past Medical History - Social History Smoking Status: Unknown if Ever Smoked Family History: Reviewed & Not Pertinent, Arthritis, CAD, DM, Hyperlipidemia, Hypertension, Malignancy, Thyroid Disfunction Patient has suicidal ideation: No Patient has homicidal ideation: No - Past Medical History Cardiac Medical History: Reports: Hx Hypertension Denies: Hx Atrial Fibrillation, Hx Congestive Heart Failure, Hx Coronary Artery Disease, Hx DVT, Hx Heart Attack, Hx Hypercholesterolemia, Hx Pulmonary Embolism Pulmonary Medical History: Reports: Hx Asthma, Hx Pneumonia, Hx Sleep Apnea - Noncompliant with home CPAP. Denies: Hx COPD Neurological Medical History: Denies: Hx Seizures Endocrine Medical History: Reports: Hx Diabetes Mellitus Type 1, Hx Diabetes Mellitus Type 2, Hx Hypothyroidism. Denies: Hx Hyperthyroidism Renal/ Medical History: Denies: Hx Peritoneal Dialysis GI Medical History: Reports: Hx Gastroesophageal Reflux Disease. Denies: Hx Cirrhosis, Hx Hepatitis Musculoskeletal Medical History: Reports Hx Arthritis Psychiatric Medical History: Denies: Hx Depression Infectious Medical History: Denies: Hx Hepatitis Past Surgical History: Reports: Hx Abdominal Surgery - abd hernia, Hx Cardiac Catheterization - -6 years ago, was reported to be negative for CAD, Hx Cholecystectomy, Hx Hysterectomy - Immunizations Immunizations up to date: No Hx Diphtheria, Pertussis, Tetanus Vaccination: No Hx Pneumococcal Vaccination: 05/31/15 Review of Systems - Review of Systems Constitutional: denies: Chills, Fever Cardiovascular: denies: Chest pain, Dyspnea Respiratory: denies: Short of breath Musculoskeletal: denies: Back pain Skin: Other - Chronic ulcers and venous stasis ulcers Neurological/Psychological: Anxiety -: Yes All other systems reviewed and negative Physical Exam - Vital signs Vitals: Temp Pulse Resp BP Pulse Ox 98 F 98 23 H 154/98 H 98 03/14/18 04:25 03/14/18 04:25 03/14/18 04:25 03/14/18 04:25 03/14/18 04:25 - Notes Notes: GENERAL_APPEARANCE: well_nourished, alert, cooperative, heard yelling loudly in the hallways appears uncomfortable VITALS: reviewed, see vital signs table. HEAD: no_swelling\\tenderness on the head. EYES: PERRL, EOMI, conjunctiva_clear. NOSE: no_nasal_discharge. MOUTH: (-)decreased moisture. NECK: supple, no_neck_tenderness, (-)thyromegaly. BACK: no_back_tenderness. CHEST_WALL: no_chest_tenderness. LUNGS: no_wheezing, no_rales, no_rhonchi, (-)accessory muscle use, good air exchange bilateral. HEART: normal_rate, normal_rhythm, normal_S1, normal_S2, (-)S3, (-)S4, no_ murmur, no_rub. ABDOMEN: no_abd_tenderness, (-)guarding, (-)rebound, no_organomegaly, no_abd_ masses. EXTREMITIES: Patient has bilateral venous stasis ulcers. There is no warmth to the area. The skin is denuded in the area she has 2 4 cm ulcers on the right leg and some denuded skin on the left leg she has some denuded skin. There are strong dorsalis pedis posterior tibial pulses bilateral. SKIN: warm, dry, good_color, no_rash. MENTAL_STATUS: speech_clear, oriented_X_3, histrionic_affect, responds_ appropriately to questions. Course - Re-evaluation Re-evalutation: 03/14/18 06:49 62-year-old female with a history of chronic venous stasis ulcers to the lower legs. She has had these for the last 3 or 4 months she is under wound care. There ulcers present and there is some denuded skin. She is supposed to have compression dressings but she does not wear them due to the pain she has been getting narcotic pain medicine from her family doctor and was written some by the surgeon in [place] for Percocet. Patient is very pain intolerant and I struggled with pain control her entire life. He was given pain medicine here. Patient has no fever no leukocytosis the areas are not warm these are all chronic wounds. 03/14/18 09:10 The patient has no fever no leukocytosis. Her CBC has a mildly elevated BUN hemoglobin is 9.9 look back at her last set of blood this was almost identical to that. I spoke with the patient about this she has a mild urinary tract infection will add some Macrobid to it. She is already on clindamycin for her wounds Her legs do look for at face value however she is not being compliant with her wound care people. She is very fixated on the pain. I tried to sit down and explained to her that wound care is the best place for these chronic wounds. If she does not do the therapy she is able inevitably get worse. Is already prescribed [place] and has an active prescription for this on the database. I want to prescribe her any additional narcotics. Again I will give her some Macrobid for her UTI I encouraged her to call her wound care facility today. - Vital Signs Vital signs: Temp Pulse Resp BP Pulse Ox 98 F 98 19 166/99 H 97 03/14/18 04:25 03/14/18 04:25 03/14/18 07:00 03/14/18 06:02 03/14/18 06:02 - Laboratory Result Diagrams: 03/14/18 05:45 03/14/18 05:45 Laboratory results interpreted by me: 03/14/18 03/14/18 03/14/18 05:35 05:45 05:45 RBC 3.71 L Hgb 9.9 L Hct 30.1 L MCH 26.6 L RDW 18.1 H Lymphocytes % 10.8 L VBG pH Sodium 136.9 L Potassium 5.3 H Carbon Dioxide 19 L BUN 61 H Est GFR (Non-Af Amer) 51 L Glucose 318 H POC Glucose 324 H Direct Bilirubin 0.5 H Urine Protein Urine Glucose (UA) Urine Ketones Urine Blood Ur Leukocyte Esterase 03/14/18 03/14/18 05:45 08:05 RBC Hgb Hct MCH RDW Lymphocytes % VBG pH 7.29 L Sodium Potassium Carbon Dioxide BUN Est GFR (Non-Af Amer) Glucose POC Glucose Direct Bilirubin Urine Protein 30 H Urine Glucose (UA) 50 H Urine Ketones TRACE H Urine Blood SMALL H Ur Leukocyte Esterase MODERATE H Discharge - Discharge Clinical Impression: UTI (urinary tract infection) Stasis edema with ulcer Qualifiers: Laterality: bilateral Qualified Code(s): I87.313 - Chronic venous hypertension (idiopathic) with ulcer of bilateral lower extremity; L97.919 - Non-pressure chronic ulcer of unspecified part of right lower leg with unspecified severity; L97.919 - Non-pressure chronic ulcer of unspecified part of right lower leg with unspecified severity; L97.919 - Non-pressure chronic ulcer of unspecified part of right lower leg with unspecified severity; L97.919 - Non-pressure chronic ulcer of unspecified part of right lower leg with unspecified severity; L97.929 - Non-pressure chronic ulcer of unspecified part of left lower leg with unspecified severity; L97.929 - Non-pressure chronic ulcer of unspecified part of left lower leg with unspecified severity; L97.929 - Non-pressure chronic ulcer of unspecified part of left lower leg with unspecified severity; L97.929 - Non-pressure chronic ulcer of unspecified part of left lower leg with unspecified severity Condition: Good Disposition: HOME, SELF-CARE Instructions: Dressing Instructions for Open Wounds ([facility]) Additional Instructions: Please follow instructions for care of your lower extremities that have been given to you by your wound care center. Please call them today for an appointment Prescriptions: Nitrofurantoin/Nitrofuran Mac [Macrobid 100 mg Capsule] 1 tab PO BID #20 capsule
[2018-03-14 07:02] VITALS: BP 166/99
--- NOTE | 2018-03-14 07:42 | EKG REPORT ---
SEVERITY:- OTHERWISE NORMAL ECG - SINUS TACHYCARDIA : Confirmed by: Erasmo Tavares MD 14-Mar-2018 07:41:30
[2018-03-14] MEDS ORDERED: IBUPROFEN 600 MG TABLET PO ONE (08:32)
[2018-03-14 08:36] LABS: APPEARANCE,URINE SLIGHTLY-CLOUDY; BILIRUBIN,URINE NEGATIVE (NEGATIVE); COLOR,URINE YELLOW; GLUCOSE, URINE 50 mg/dL (NEGATIVE); KETONES,URINE TRACE mg/dL (NEGATIVE); LEUKOCYTE ESTERASE,URINE MODERATE (NEGATIVE); NITRITE,URINE NEGATIVE (NEGATIVE); PROTEIN,URINE 30 mg/dL (NEGATIVE); URINE SPECIFIC GRAVITY 1.017; UROBILINOGEN,URINE NEGATIVE mg/dL (<2.0)
== END 2018-03-14 09:45 | disposition home or self-care (01) ==
LOC: ER 04:19
DX: N39.0 Urinary tract infection, site not specified (principal); I87.313 Chronic venous hypertension (idiopathic) with ulcer of bilateral lower extremity; L97.919 Non-pressure chronic ulcer of unspecified part of right lower leg with unspecified severity; L97.929 Non-pressure chronic ulcer of unspecified part of left lower leg with unspecified severity; M79.605 Pain in left leg; M79.604 Pain in right leg; I10 Essential (primary) hypertension; E03.9 Hypothyroidism, unspecified; E11.9 Type 2 diabetes mellitus without complications; Z88.0 Allergy status to penicillin; Z88.2 Allergy status to sulfonamides; Z88.6 Allergy status to analgesic agent; Z90.49 Acquired absence of other specified parts of digestive tract; Z90.710 Acquired absence of both cervix and uterus
CPT/HCPCS: 93005; 99284; 96374; 36415; 87040; 87086; 82962; 85025; 85610; 87088; 80053; 81001; 87186; 82803; 83605; 73590; 93010; J3010; A9270 ×2; J7030

== ENCOUNTER → 2019-12-25 | Outpatient (CLI) | payer MEDICARE, OTHER ==
--- NOTE | 2019-12-25 14:02 | RADIOLOGY REPORT (SQ) ---
EXAM DESCRIPTION: MRI RT UPPER JOINT WITHOUT IMAGES COMPLETED DATE/TIME: 12/25/2019 1:10 pm REASON FOR STUDY: S62.001A UNSP FRACTURE OF NAVICULAR BONE OF RIGHT WRIST, INIT S62.001A UNSP FRACT URE OF NAVICULAR BONE OF RIGHT WRIST, INI COMPARISON: None. TECHNIQUE: Right wrist images acquired and stored on PACS. Multiplanar images include fat sensitive sequences as T1, fluid sensitive sequences as FST2/STIR, cartilage sensitive sequences as FSPD, grad ient echo sequences. LIMITATIONS: Severely limited by motion artifact. No comparison radiographs available. FINDINGS: BONE MARROW: Poorly assessed. Possible scaphoid fracture. CARPAL ALIGNMENT AND ARTICULATION: Volar dislocation of the carpals relative to the distal forearm. Carpus follows the lunate. 1-6 EXTENSOR COMPARTMENTS: Grossly normal. CARPAL TUNNEL AND MEDIAN NERVE: Grossly normal. OTHER: No other significant finding. IMPRESSION: 1. Severely limited evaluation of the wrist. 2. Volar wrist dislocation is present at the radiocarpal joint. Potential scaphoid fracture. Recomm end correlation with radiographs and/or CT (CT may be better tolerated than MRI). Call report tasked to the [facility] C[facility] team at time of interpretation. TECHNICAL DOCUMENTATION: JOB ID: [id number] 2010 [employer]- All Rights Reserved Reading location - IP/workstation name: [email or web address]
== END ==
LOC: RAD 12:10
PROVIDERS: ATTEND Family Medicine
DX: S62.001A Unspecified fracture of navicular [scaphoid] bone of right wrist, initial encounter for closed fracture (principal); X58.XXXA Exposure to other specified factors, initial encounter

== ENCOUNTER 2020-04-15 07:20 | Inpatient (IN) | payer MEDICARE, OTHER, MEDICAID ==
[2020-04-15] MEDS ORDERED: NORMAL SALINE 1000 ML 1,000 ML IV ONE ×2 (08:59→13:21)
[2020-04-15] MEDS ORDERED: HYDROMORPHONE HCL INJ/PF 2 MG/ML AMPULE IV ONE (08:59)
[2020-04-15] MEDS ORDERED: ONDANSETRON HCL INJ/PF 4 MG/2 ML SDV IV ONE ×2 (09:00→13:08)
--- NOTE | 2020-04-15 09:03 | ER Document Report ---
ED GI/ - General Chief Complaint: Abdominal Pain Stated Complaint: ABDOMINAL PAIN Time Seen by Provider: 04/15/20 08:20 Mode of Arrival: Medic Information source: Patient Notes: Patient presents from [facility] with nausea and vomiting since yesterday. Patient has been vomiting numerous times since arrival bilious emesis. Patient complains of periumbilical and left sided abdominal discomfort since yesterday. Patient states that she has been nonambulatory since May of this year. Patient with multiple comorbidities including hypertension, diabetes, rheumatoid arthritis and chronic back pain. TRAVEL OUTSIDE OF THE [place] IN LAST 30 DAYS: No - HPI Patient complains to provider of: Abdominal pain, Vomiting Onset: Yesterday Timing/Duration: Worse Quality of pain: Sharp Pain Level: 5 Location: LLQ, Other - Periumbilical Vaginal bleeding (Compared to normal period): None Associated symptoms: Nausea, Vomiting. denies: Blood in stool, Diarrhea, Dysuria, Fever, Urinary hesitancy, Urinary frequency, Urinary retention, Urinary urgency, Vaginal discharge Exacerbated by: Denies Relieved by: Denies Similar symptoms previously: No Recently seen / treated by doctor: No - Related Data Allergies/Adverse Reactions: Penicillins Allergy (Severe, Verified 04/15/20 08:58) rash Sulfa (Sulfonamide Antibiotics) Allergy (Intermediate, Verified 04/15/20 08:58) Swelling of Throat, morphine [Morphine] Adverse Reaction (Verified 04/15/20 08:58) shaking, "brain freezes" Past Medical History - General Information source: Patient - Social History Smoking Status: Never Smoker Chew tobacco use (# tins/day): No Frequency of alcohol use: None Drug Abuse: None Lives with: [facility] Family History: Reviewed & Not Pertinent, Arthritis, CAD, DM, Hyperlipidemia, Hypertension, Malignancy, Thyroid Disfunction - Past Medical History Cardiac Medical History: Reports: Hx Hypertension Pulmonary Medical History: Reports: Hx Asthma, Hx Pneumonia, Hx Sleep Apnea - Noncompliant with home CPAP. Denies: Hx COPD Neurological Medical History: Denies: Hx Seizures Endocrine Medical History: Reports: Hx Diabetes Mellitus Type 1, Hx Hypothyroidism. Denies: Hx Hyperthyroidism Renal/ Medical History: Denies: Hx Peritoneal Dialysis GI Medical History: Reports: Hx Gastroesophageal Reflux Disease. Denies: Hx Cirrhosis, Hx Hepatitis Musculoskeletal Medical History: Reports Hx Arthritis Psychiatric Medical History: Reports: Hx Anxiety Denies: Hx Depression Infectious Medical History: Denies: Hx Hepatitis Past Surgical History: Reports: Hx Abdominal Surgery - abd hernia, Hx Cardiac Catheterization - -6 years ago, was reported to be negative for CAD, Hx Cholecystectomy, Hx Hysterectomy - Immunizations Immunizations up to date: No Hx Diphtheria, Pertussis, Tetanus Vaccination: No Hx Pneumococcal Vaccination: 05/31/15 Review of Systems - Review of Systems Constitutional: No symptoms reported. denies: Fever EENT: No symptoms reported Cardiovascular: No symptoms reported. denies: Chest pain Respiratory: No symptoms reported Gastrointestinal: Abdominal pain, Vomiting Genitourinary: Incontinence. denies: Dysuria, Flank pain Female Genitourinary: No symptoms reported Musculoskeletal: Back pain Skin: No symptoms reported Hematologic/Lymphatic: No symptoms reported Neurological/Psychological: No symptoms reported Physical Exam - Vital signs Vitals: Resp Pulse Ox 18 96 04/15/20 08:04 04/15/20 08:04 - General General appearance: Alert In distress: Mild - HEENT Head: Normocephalic, Atraumatic Eyes: Normal Conjunctiva: Normal Nasal: Normal Mouth/Lips: Normal Neck: Normal, Supple. No: Lymphadenopathy - Respiratory Respiratory status: No respiratory distress Chest status: Nontender Breath sounds: Normal. No: Rales, Rhonchi, Stridor, Wheezing Chest palpation: Normal - Cardiovascular Rhythm: Regular Heart sounds: S1 appreciated, S2 appreciated - Abdominal Inspection: Morbidly Obese Distension: No distension Bowel sounds: Hypoactive - to LLQ Tenderness: Tender - periumbilical, epigastric Organomegaly: No organomegaly - Back Back: Normal. No: CVA tenderness - Extremities General upper extremity: Normal inspection, Normal ROM General lower extremity: Other - foot drop to R foot - Neurological Neuro grossly intact: Yes Cognition: Normal Susan Coma Scale Eye Opening: Spontaneous [place] Coma Scale Verbal: Oriented [place] Coma Scale Motor: Obeys Commands [place] Coma Scale Total: 15 - Psychological Associated symptoms: Depressed - Skin Skin Temperature: Warm Skin Moisture: Dry Skin Color: Pale Skin irregularity: other - 1st degree decubitus to L buttock Course - Re-evaluation Re-evalutation: 04/15/20 13:[address] report worrisome for bowel obstruction, call placed to surgeon who recommends having an NG tube placed and obtaining a rapid Covid test at this time. He recommends consulting with hospitalist for admission due to patient's multiple comorbidities. Call was placed to hospitalist Dr. Wyatt who declines excepting patient for admission at this time as he prefers to wait till surgeon has evaluated patient. He is concerned that if patient goes to surgery first they will likely the admitted to the ICU under the [employer]. He recommends calling him back once surgeon has evaluated the patient. 04/15/20 13:22 Dr. Feliz evaluated patient, he does not feel that patient needs emergent surgery at this time but does recommend admission. He feels that patient is stable for hospitalist admission and does not need ICU admission at this time. He advises NG tube placement although acknowledges that patient has refused th is. He recommends continued IV hydration and avoidance of narcotics. Called and placed to Dr. Wyatt advises consultation with Dr. Narvaez for admission. 04/15/20 13:[address] Narvaez who agrees to come and evaluate patient for admission. Strongly encourages advising patient of importance of need for NG tube. 04/15/20 15:00 Dr. Narvaez agrees to accept patient for admission at this time. Patient had allowed RN to place NG tube, nurse reports over 1500 mL of gastric drainage collected. 04/15/20 17:00 Patient spouse called wanting an update regarding patient status, patient gave verbal consent for provider to speak with her . Patient has been updated regarding patient's course and plan of care thus far. Patient's spouse advised that he could come and visit her in the emergency department although he is requesting to wait until she has been moved to a room upstairs. - Vital Signs Vital signs: Temp Pulse Resp BP Pulse Ox 97.9 F 16 178/66 H 95 04/15/20 08:14 04/15/20 11:01 04/15/20 11:01 04/15/20 11:01 - Laboratory Result Diagrams: 04/15/20 08:09 04/15/20 08:09 Laboratory results interpreted by me: 04/15/20 04/15/20 04/15/20 08:09 08:09 10:40 WBC 11.6 H RDW 15.8 H Lymph % (Auto) 7.7 L Absolute Neuts (auto) 10.2 H Seg Neutrophils % 88.4 H Chloride 97 L BUN 39 H Glucose 361 H POC Glucose Calcium 10.4 H AST 58 H ALT 36 H Alkaline Phosphatase 296 H Total Protein 9.0 H Urine Protein >=500 H Urine Glucose (UA) >=500 H Urine Blood SMALL H Urine Urobilinogen 2.0 H Ur Leukocyte Esterase LARGE H 04/15/20 11:54 WBC RDW Lymph % (Auto) Absolute Neuts (auto) Seg Neutrophils % Chloride BUN Glucose POC Glucose 349 H Calcium AST ALT Alkaline Phosphatase Total Protein Urine Protein Urine Glucose (UA) Urine Blood Urine Urobilinogen Ur Leukocyte Esterase Labs- All tests 24 hr 04/15/20 04/15/20 04/15/20 08:09 08:09 09:38 WBC 11.6 H RBC 5.00 Hgb 13.8 Hct 42.0 MCV 84 MCH 27.6 MCHC 32.8 RDW 15.8 H Plt Count 298 Lymph % (Auto) 7.7 L [place] % (Auto) 3.5 Eos % (Auto) 0.2 Baso % (Auto) 0.2 Absolute Neuts (auto) 10.2 H Absolute Lymphs (auto) 0.9 Absolute Monos (auto) 0.4 Absolute Eos (auto) 0.0 Absolute Basos (auto) 0.0 Seg Neutrophils % 88.4 H VBG pH 7.40 VBG pCO2 46.5 VBG HCO3 27.8 VBG Base Excess 2.3 Sodium 139.0 Potassium 4.3 Chloride 97 L Carbon Dioxide 27 Anion Gap 15 BUN 39 H Creatinine 0.63 Est GFR ( Amer) > 60 Est GFR (MDRD) Non-Af > 60 Glucose 361 H POC Glucose Calcium 10.4 H Magnesium 1.6 Total Bilirubin 0.8 Direct Bilirubin 0.4 Neonat Total Bilirubin Not Reportable Neonat Direct Bilirubin Not Reportable Neonat Indirect Bili Not Reportable AST 58 H ALT 36 H Alkaline Phosphatase 296 H Total Protein 9.0 H Albumin 4.5 Lipase 88.3 Urine Color Urine Appearance Urine pH Ur Specific [place] Urine Protein Urine Glucose (UA) Urine Ketones Urine Blood Urine Nitrite Urine Bilirubin Urine Urobilinogen Ur Leukocyte Esterase Urine WBC (Auto) Urine RBC (Auto) U Hyaline Cast (Auto) Urine Bacteria (Auto) Urine WBC Clumps Squamous Epi Cells Auto Urine Mucus (Auto) Urine Ascorbic Acid 04/15/20 04/15/20 10:40 11:54 WBC RBC Hgb Hct MCV MCH MCHC RDW Plt Count Lymph % (Auto) [place] % (Auto) Eos % (Auto) Baso % (Auto) Absolute Neuts (auto) Absolute Lymphs (auto) Absolute Monos (auto) Absolute Eos (auto) Absolute Basos (auto) Seg Neutrophils % VBG pH VBG pCO2 VBG HCO3 VBG Base Excess Sodium Potassium Chloride Carbon Dioxide Anion Gap BUN Creatinine Est GFR ( Amer) Est GFR (MDRD) Non-Af Glucose POC Glucose 349 H Calcium Magnesium Total Bilirubin Direct Bilirubin Neonat Total Bilirubin Neonat Direct Bilirubin Neonat Indirect Bili AST ALT Alkaline Phosphatase Total Protein Albumin Lipase Urine Color SERAFIN Urine Appearance CLOUDY Urine pH 5.0 Ur Specific [place] 1.024 Urine Protein >=500 H Urine Glucose (UA) >=500 H Urine Ketones NEGATIVE Urine Blood SMALL H Urine Nitrite NEGATIVE Urine Bilirubin NEGATIVE Urine Urobilinogen 2.0 H Ur Leukocyte Esterase LARGE H Urine WBC (Auto) >182 Urine RBC (Auto) 25 U Hyaline Cast (Auto) 8 Urine Bacteria (Auto) 2+ Urine WBC Clumps MANY Squamous Epi Cells Auto 1 Urine Mucus (Auto) RARE Urine Ascorbic Acid NEGATIVE - Diagnostic Test Radiology reviewed: Reports reviewed Discharge - Discharge Clinical Impression: Morbid obesity Diabetes Qualifiers: Diabetes mellitus type: type 2 Diabetes mellitus care home insulin use: without care home use Diabetes mellitus complication status: with circulatory complication Diabetes mellitus complication detail: with peripheral angiopathy without gangrene Qualified Code(s): E11.51 - Type 2 diabetes mellitus with diabetic peripheral angiopathy without gangrene Bowel obstruction Qualifiers: Intestinal obstruction type: obstruction due to adhesions Intestinal obstruction extent: complete Qualified Code(s): K56.52 - Intestinal adhesions [bands] with complete obstruction Nausea and vomiting Qualifiers: Vomiting type: bilious vomiting Qualified Code(s): R11.14 - Bilious vomiting Condition: Fair Disposition: ADMITTED INPATIENT Admitting Provider: Brice (Hospitalist) Unit Admitted: Telemetry
[2020-04-15 09:21] LABS: ABSOLUTE LYMPHOCYTES (AUTO) 0.9 10^3/uL (0.5-4.7); ABSOLUTE MONOCYTES (AUTO) 0.4 10^3/uL (0.1-1.4); ABSOLUTE NEUT (AUTO) 10.2 10^3/uL (1.7-8.2); BASOPHILS % (AUTO) 0.2 % (0-2); EOSINOPHILS % (AUTO) 0.2 % (0-6); HEMOGLOBIN 13.8 g/dL (12.0-15.5); LYMPHOCYTES % (AUTO) 7.7 % (13-45); MEAN CORPUSCULAR HEMOGLOBIN 27.6 pg (27.0-33.4); MEAN CORPUSCULAR HGB CONC 32.8 g/dL (32.0-36.0); MEAN CORPUSCULAR VOLUME 84 fl (80-97); MONOCYTES % (AUTO) 3.5 % (3-13); PLATELET COUNT 298 10^3/uL (150-450); RED CELL DISTRIBUTION WIDTH 15.8 % (11.5-14.0); SEGMENTED NEUTROPHILS % (AUTO) 88.4 % (42-78); TOTAL CELLS COUNTED % (AUTO) 100 %; WHITE BLOOD COUNT 11.6 10^3/uL (4.0-10.5)
[2020-04-15 09:45] LABS: ALBUMIN 4.5 g/dL (3.5-5.0); ALKALINE PHOSPHATASE 296 U/L (38-126); ANION GAP 15 (5-19); ASPARTATE AMINO TRANSFERASE 58 U/L (14-36); BILIRUBIN,DIRECT 0.4 mg/dL (0.0-0.4); BILIRUBIN,TOTAL 0.8 mg/dL (0.2-1.3); BLOOD UREA NITROGEN 39 mg/dL (7-20); CALCIUM 10.4 mg/dL (8.4-10.2); CARBON DIOXIDE 27 mmol/L (22-30); CHLORIDE 97 mmol/L (98-107); GLUCOSE 361 mg/dL (75-110); POTASSIUM 4.3 mmol/L (3.6-5.0)
[2020-04-15 09:55] LABS: VENOUS BLOOD BASE EXCESS 2.3 mmol/L; VENOUS BLOOD HCO3 27.8 mmol/L (20-32); VENOUS BLOOD PCO2 46.5 mmHg (35-63); VENOUS BLOOD PH 7.4 (7.30-7.42)
[2020-04-15] MEDS ORDERED: INSULIN REG, HUMAN 100 UNIT/ML 3 ML VIAL (PYX) SUBCUT ONE (10:11)
--- NOTE | 2020-04-15 10:27 | RADIOLOGY REPORT (SQ) ---
EXAM DESCRIPTION: ABDOMEN 2 VIEWS IMAGES COMPLETED DATE/TIME: 04/15/2020 10:02 am REASON FOR STUDY: abd pain, vomiting COMPARISON: None. NUMBER OF VIEWS: Two views. TECHNIQUE: AP supine and upright views of the abdomen were obtained. LIMITATIONS: None. FINDINGS: FREE AIR: None. LUNG BASES: Clear. BOWEL GAS PATTERN: There are several air-filled dilated loops of bowel in the left hemiabdomen that m easure up to 4.2 cm in diameter. CALCIFICATIONS: There are no calcifications that project within the renal fossae. SOFT TISSUES: Extensive vascular calcifications. HARDWARE: Cholecystectomy clips. BONES: Degenerative spondylosis of the lumbar spine. OTHER: No other findings. IMPRESSION: Several air-filled dilated loops of bowel in the left hemiabdomen that measure up to 4.2 cm in diameter. Correlation with CT is recommended to exclude a mechanical obstruction. TECHNICAL DOCUMENTATION: JOB ID: [id number] 2010 [employer]- All Rights Reserved Reading location - IP/workstation name: [email or web address]
[2020-04-15 11:03] LABS: APPEARANCE,URINE CLOUDY; BILIRUBIN,URINE NEGATIVE (NEGATIVE); COLOR,URINE AMBER; GLUCOSE, URINE >=500 mg/dL (NEGATIVE); KETONES,URINE NEGATIVE (NEGATIVE); LEUKOCYTE ESTERASE,URINE LARGE (NEGATIVE); NITRITE,URINE NEGATIVE (NEGATIVE); PROTEIN,URINE >=500 mg/dL (NEGATIVE); URINE SPECIFIC GRAVITY 1.024
[2020-04-15] MEDS ORDERED: CEFTRIAXONE 1 GM/D5W RTU 1 GM/50 ML RTUPB IV ONE (11:14)
--- NOTE | 2020-04-15 12:51 | RADIOLOGY REPORT (SQ) ---
EXAM DESCRIPTION: CT ABD/PELVIS WITH IV ONLY IMAGES COMPLETED DATE/TIME: 04/15/2020 11:34 am REASON FOR STUDY: abd pain, n/v COMPARISON: AP supine and upright views of the abdomen from 04/15/2020. TECHNIQUE: CT scan of the abdomen and pelvis performed using helical scanning technique with dynamic intravenous contrast injection. No oral contrast. Images reviewed with lung, soft tissue, and bone windows. Reconstructed coronal and sagittal MPR images reviewed. Delayed images for evaluation of the urinary system also acquired. All images stored on PACS. All CT scanners at this facility use dose modulation, iterative reconstruction, and/or weight based d osing when appropriate to reduce radiation dose to as low as reasonably achievable (ALARA). [facility]: Dose Right [facility]: CareDose [facility]: Dose Right [facility]: Teradose 4D [facility]: [employer] CONTRAST TYPE AND DOSE: contrast/concentration: Isovue 350.00 mmol/ml; Total Contrast Delivered: 99. 0 ml; Total Saline Delivered: 26.7 ml RENAL FUNCTION: GFR > 60. RADIATION DOSE: CT Rad equipment meets quality standard of care and radiation dose reduction techniq ues were employed. CTDIvol: 18.4 - 20.4 mGy. DLP: 2036 mGy-cm. LIMITATIONS: None. FINDINGS: LOWER CHEST: No acute abnormality. LIVER: The morphology of the liver is noncirrhotic. The portal veins are patent. There is no hepati c mass. SPLEEN: No splenomegaly or splenic mass. PANCREAS: No acute gross abnormality of the pancreas. GALLBLADDER: Surgically absent. ADRENAL GLANDS: No mass or asymmetry. RIGHT KIDNEY AND URETER: 3 mm caliceal calculus in the upper pole of the kidney. There is no solid m ass, hydronephrosis, hydroureter or ureterolithiasis. LEFT KIDNEY AND URETER: No solid mass, hydronephrosis, nephrolithiasis, hydroureter or ureterolithias is. AORTA AND VESSELS: No aneurysm of the abdominal aorta. The extensive atherosclerotic calcification o f the abdominopelvic vasculature is suggestive of underlying diabetes mellitus. RETROPERITONEUM: No retroperitoneal adenopathy, hemorrhage or mass. BOWEL AND PERITONEAL CAVITY: The stomach is distended and filled with fluid. There are numerous flui d-filled dilated loops of jejunum in the left hemiabdomen that abruptly taper to a normal caliber at a focal point of transition in the mid abdomen (image 62 of series 102); the portion of the jejunum d istal to the point of transition and the ileum are nondistended. There is no abnormality of the ileo cecal junction. The colon and rectum are normal in caliber and contain fecal material. There is no bowel wall thickening or pericolonic/perienteric inflammation. There is no mesenteric adenopathy, fr ee intraperitoneal fluid, pneumatosis or free intraperitoneal gas. APPENDIX: Normal. PELVIS: The uterus is surgically absent. The urinary bladder is contracted. ABDOMINAL WALL: Fat-containing ventral hernia associated with stranding of the herniated fat. BONES: Degenerative spondylosis and facet joint arthropathy of the lumbar spine with grade 1 anteroli sthesis of L3 relative to L4 and of L4 relative to L5. There is no acute fracture. OTHER: No other findings. IMPRESSION: 1. Numerous fluid-filled dilated loops of jejunum in the left hemiabdomen that abruptly taper to a normal caliber at a focal point of the transition in the mid abdomen (image 62 of series 102). These findings are concerning for a mechanical bowel obstruction. 2. Fat-containing ventral hernia associated with stranding of the herniated fat. TECHNICAL DOCUMENTATION: JOB ID: [id number] Quality ID # [id number]: Final reports with documentation of one or more dose reduction techniques (e.g., Au tomated exposure control, adjustment of the mA and/or kV according to patient size, use of iterative reconstruction technique) 2010 [employer]- All Rights Reserved Reading location - IP/workstation name: [email or web address]
[2020-04-15] MEDS ORDERED: PHARMACY COMMUNICATION ORDER MC NR (13:00)
[2020-04-15] MEDS ORDERED: LIDOCAINE 2% JELLY 5 ML TUBE TOP ONE (13:07)
--- NOTE | 2020-04-15 15:13 | RADIOLOGY REPORT (SQ) ---
EXAM DESCRIPTION: KUB/ABDOMEN (SINGLE VIEW) IMAGES COMPLETED DATE/TIME: 04/15/2020 2:50 pm REASON FOR STUDY: Check Placement of NG Tube COMPARISON: None. NUMBER OF VIEWS: One view. TECHNIQUE: An AP view of the MO was obtained. LIMITATIONS: None. FINDINGS: The tip of the enteric tube projects within the gastric lumen. There is re- demonstration of air-filled dilated loops of bowel in the inferior left hemiabdomen. IMPRESSION: The tip of the enteric tube projects within the gastric lumen. TECHNICAL DOCUMENTATION: JOB ID: [id number] 2010 [employer]- All Rights Reserved Reading location - IP/workstation name: [email or web address]
[2020-04-15] MEDS ORDERED: DEXTROSE 40% GEL 15 GM TUBE PO PRN ×2 (15:21)
[2020-04-15] MEDS ORDERED: DEXTROSE 50%-WATER 25 GM/50 ML DISP.SYRIN IV PRN ×2 (15:21)
[2020-04-15] MEDS ORDERED: POTASSI CL 20 MEQ/D5-1/2NS 1L 1,000 ML IV PRN (15:21)
[2020-04-15] MEDS ORDERED: GLUCAGON,HUMAN RECOMB 1 MG INJ IM PRN (15:21)
--- NOTE | 2020-04-15 15:53 | PDOC CONSULTATION ---
Consultation Consult Date: 04/15/20 Provider Consulted: NAE BUTT Consult reason:: Bowel obstruction History of Present Illness Admission Date/PCP: 04/15/20 15:24 RICK MARION MD History of Present Illness: BA ARIAS is a 64 year old female Presents emergency department via ground rescue complaining of abdominal pain, nausea and vomiting for several days. She was evaluated emergency department found to have mild abdominal distention, acute abdominal series showed multiple dilated loops of small bowel gas. CT scan of the abdomen and pelvis without oral contrast demonstrated possible small bowel obstruction. Surgery consulted. Patient is a resident of [facility], CODE STATUS unknown, nonambulatory, at bed rest due to acquired deformity of her lower extremities. Has multiple medical problems. Surgery recommended patient be admitted to the hospitalist service for rehydration, nasogastric decompression, management of hyperglycemia. Past Medical History Cardiac Medical History: Reports: Hypertension Denies: Atrial Fibrillation, Congestive Heart Failure, Coronary Artery Disease, DVT, Myocardial Infarction, Hyperlipidema, Pulmonary Embolism Pulmonary Medical History: Reports: Asthma, Pneumonia, Sleep Apnea - Noncompliant with home CPAP. Denies: Chronic Obstructive Pulmonary Disease (COPD) Neurological Medical History: Denies: Seizures Endocrine Medical History: Reports: Diabetes Mellitus Type 1, Diabetes Mellitus Type 2, Hypothyroidism Denies: Hyperthyroidism GI Medical History: Reports: Gastroesophageal Reflux Disease Denies: Cirrhosis, Hepatitis Musculoskeltal Medical History: Reports: Arthritis Psychiatric Medical History: Denies: Depression Past Surgical History Past Surgical History: Reports: Cardiac Catheterization - -6 years ago, was reported to be negative for CAD, Cholecystectomy, Hysterectomy Social History Information Source: Patient Lives with: [facility] Smoking Status: Never Smoker Electronic Cigarette use?: No Frequency of Alcohol Use: None Hx Recreational Drug Use: No Drugs: None Hx Prescription Drug Abuse: No Family History Family History: None, Reviewed & Not Pertinent, Arthritis, CAD, DM, Hyperlipidemia, Hypertension, Malignancy, Thyroid Disfunction Parental Family History Reviewed: No Children Family History Reviewed: No Sibling(s) Family History Reviewed.: No Medication/Allergy Home Medications: Albuterol Sulfate [Proair HFA Inhalation Aerosol 8.5 gm MDI] 2 puff IH Q4HP PRN 03/05/17 Amitriptyline HCl [Elavil 25 mg Tablet] 25 mg PO QHS 03/05/17 Cholecalciferol (Vitamin D3) [Vitamin D3 1000 Unit Tablet] 1,000 units PO DAILY 03/05/17 Diazepam [Valium 5 mg Tablet] 5 mg PO DAILYP PRN 03/05/17 Fluticasone Propionate [Flonase Nasal [place] 50 Mcg/[place] 16 gm] 2 spray NASL DAILY 03/05/17 Insulin Aspart [Novolog Flexpen] 14 units SUBCUT MEALS 03/05/17 Insulin Glargine,Hum.rec.anlog [Lantus Solostar] 16 units SUBCUT BID 03/05/17 L.acidoph,Paracasei, B.lactis [Probiotic] 1 cap PO DAILY 03/05/17 Levothyroxine Sodium [Synthroid 0.15 mg Tablet] 0.15 mg PO QAM 03/05/17 Multivitamin [Daily Multiple Vitamin] 1 tab PO DAILY 03/05/17 Omeprazole 40 mg PO DAILY 03/05/17 Telmisartan [Micardis 80 mg Tablet] 80 mg PO DAILY 03/05/17 Amlodipine Besylate [Norvasc 10 mg Tablet] 10 mg PO DAILY #30 tablet 03/06/17 Atorvastatin Calcium [Lipitor 40 mg Tablet] 40 mg PO QHS #30 tablet 03/06/17 Clindamycin HCl [Cleocin Hcl] 300 mg PO QID #28 capsule 05/26/17 Hydrocodone/Acetaminophen [Vicodin 5-300 mg Tablet] 1 tab PO ASDIR PRN #20 tab 05/26/17 Cyclobenzaprine HCl [Flexeril 10 mg Tablet] 10 mg PO TIDP PRN #15 tab 05/31/17 Gabapentin [Neurontin 300 mg Capsule] 300 mg PO Q12 #60 capsule 05/31/17 Ketorolac Tromethamine [Toradol 10 mg Tablet] 10 mg PO Q8HP PRN #20 tablet 05/31/17 Methylprednisolone [Medrol Dosepack (4 mg/Tab) 21 Tab/Dosepak] 4 mg PO ASDIR PRN #21 tab.ds.pk 05/31/17 Lorazepam [Ativan 0.5 mg Tablet] 0.25 mg PO Q8 #21 tab 06/12/17 Methocarbamol [Robaxin 500 mg Tablet] 500 mg PO BID #14 tablet 06/12/17 Hydrocodone Bit/Acetaminophen [Hydrocodon-Acetaminophen 5-325] 1 each PO Q4HP PRN #20 tablet 06/13/17 Compress.stocking,Knee,Reg,Lrg [Relief Knee Open Toe] 1 each MC DAILY #1 each 10/03/17 Hydrochlorothiazide 25 mg PO DAILY #5 tablet 10/03/17 Ibuprofen [Motrin 800 mg Tablet] 800 mg PO Q8H PRN #30 tab 10/03/17 Lidocaine HCl [Xylocaine 5% Ointment 35.44 gm] 1 applic TP TID PRN #1 tube 12/04/17 Cephalexin Monohydrate [Keflex 500 mg Capsule] 500 mg PO Q6H 7 Days capsule 02/09/18 Cephalexin Monohydrate [Keflex 500 mg Capsule] 500 mg PO Q8H 7 Days #21 capsule 02/28/18 Oxycodone HCl/Acetaminophen [Percocet 5-325 mg Tablet] 1 tab PO Q8H PRN #15 tab 02/28/18 Nitrofurantoin/Nitrofuran Mac [Macrobid 100 mg Capsule] 1 tab PO BID #20 capsule 03/14/18 Allergies/Adverse Reactions: Penicillins Allergy (Severe, Verified 04/15/20 08:58) rash Sulfa (Sulfonamide Antibiotics) Allergy (Intermediate, Verified 04/15/20 08:58) Swelling of Throat, morphine [Morphine] Adverse Reaction (Verified 04/15/20 08:58) shaking, "brain freezes" Review of Systems Constitutional: PRESENT: as per HPI Eyes: ABSENT: visual disturbances Ears: ABSENT: hearing changes Gastrointestinal: ABSENT: abdominal pain, constipation, diarrhea, hematemesis, hematochezia, nausea, vomiting Genitourinary: ABSENT: dysuria, hematuria Musculoskeletal: PRESENT: muscle weakness - Muscle weakness chronic lower ex tremity deformity. Pelvic pain Neurological: PRESENT: other - Generalized lower extremity weakness Physical Exam Vital Signs: Temp Pulse Resp BP Pulse Ox 97.9 F 16 178/66 H 95 04/15/20 08:14 04/15/20 11:01 04/15/20 11:01 04/15/20 11:01 Intake & Output 04/14/20 04/15/20 04/16/20 06:59 06:59 06:59 Intake Total 1050 Balance 1050 Weight 92.5 kg General appearance: PRESENT: no acute distress Head exam: PRESENT: normocephalic Eye exam: PRESENT: EOMI Mouth exam: PRESENT: dry mucosa Neck exam: PRESENT: full ROM Respiratory exam: PRESENT: rhonchi Cardiovascular exam: PRESENT: RRR Pulses: PRESENT: normal carotid pulses, normal radial pulses, normal femoral pul ses GI/Abdominal exam: PRESENT: other - Abdomen with distended laxity of the anterior abdominal wall but no matteo hernia. There are no peritoneal signs no rigidity. Barely any abdominal tenderness. Rectal exam: PRESENT: deferred Extremities exam: PRESENT: other - Lower extremity with fixed dorsiflexion of the foot, tight, scaly none compliant skin Psychiatric exam: PRESENT: appropriate affect Results Laboratory Results: 04/15/20 08:09 04/15/20 08:09 04/15/20 04/15/20 04/15/20 08:09 08:09 09:38 WBC 11.6 H RBC 5.00 Hgb 13.8 Hct 42.0 MCV 84 MCH 27.6 MCHC 32.8 RDW 15.8 H Plt Count 298 Seg Neutrophils % 88.4 H VBG pH 7.40 VBG pCO2 46.5 VBG HCO3 27.8 VBG Base Excess 2.3 Sodium 139.0 Potassium 4.3 Chloride 97 L Carbon Dioxide 27 Anion Gap 15 BUN 39 H Creatinine 0.63 Est GFR ( Amer) > 60 Glucose 361 H Calcium 10.4 H Magnesium 1.6 Total Bilirubin 0.8 AST 58 H Alkaline Phosphatase 296 H Total Protein 9.0 H Albumin 4.5 Lipase 88.3 Urine Color Urine Appearance Urine pH Ur Specific [place] Urine Protein Urine Glucose (UA) Urine Ketones Urine Blood Urine Nitrite Ur Leukocyte Esterase Urine WBC (Auto) Urine RBC (Auto) 04/15/20 10:40 WBC RBC Hgb Hct MCV MCH MCHC RDW Plt Count Seg Neutrophils % VBG pH VBG pCO2 VBG HCO3 VBG Base Excess Sodium Potassium Chloride Carbon Dioxide Anion Gap BUN Creatinine Est GFR ( Amer) Glucose Calcium Magnesium Total Bilirubin AST Alkaline Phosphatase Total Protein Albumin Lipase Urine Color SERAFIN Urine Appearance CLOUDY Urine pH 5.0 Ur Specific [place] 1.024 Urine Protein >=500 H Urine Glucose (UA) >=500 H Urine Ketones NEGATIVE Urine Blood SMALL H Urine Nitrite NEGATIVE Ur Leukocyte Esterase LARGE H Urine WBC (Auto) >182 Urine RBC (Auto) 25 Impressions: Abdomen X-Ray 04/15/20 09:00 IMPRESSION: Several air-filled dilated loops of bowel in the left hemiabdomen that measure up to 4.2 cm in diameter. Correlation with CT is recommended to exclude a mechanical obstruction. Abdomen/Pelvis CT 04/15/20 10:11 IMPRESSION: 1. Numerous fluid-filled dilated loops of jejunum in the left hemiabdomen that abruptly taper to a normal caliber at a focal point of the transition in the mid abdomen (image 62 of series 102). These findings are concerning for a mechanical bowel obstruction. 2. Fat-containing ventral hernia associated with stranding of the herniated fat. KUB X-Ray 04/15/20 12:58 IMPRESSION: The tip of the enteric tube projects within the gastric lumen. Assessment & Plan - Plan Summary Plan Summary: Impression: Abdominal pain, nausea vomiting and dehydration, exact etiology undetermined; CT scan of the abdomen and pelvis without oral contrast suggest small bowel obstruction, however on examination patient has no evidence of acute abdomen. There is no indication for immediate operative intervention. Multiple chronic medical problems including: Hypertension, diabetes mellitus, history of endometrial cancer, deconditioned state, nonambulatory status. Recommendations: 1. Admit to medicine service, keep n.p.o. on IV fluids; rectal electrolytes, and manage blood sugar. Suggest nasogastric decompression of the stomach and proximal small bowel 2. Full CODE STATUS should be ascertained; also Covid status needs to be determined; I recommended a rapid Covid test today, 3. We will follow patient with you. If unimproved tomorrow, despite close support, study will be recommended to rule out a mechanical bowel obstruction.
--- NOTE | 2020-04-15 15:58 | PDOC H&P ---
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 Apparently she ate last night but is not had anything to eat since. She apparently had a loose bron[place] colored stool yesterday. She had nausea vomiting and reported altered mental status. She was sent to the ER for evaluation. She was found to have a distended abdomen. CT abdomen pelvis showed dilated small bowel loops in the left abdomen with a transition point in the mid abdomen. Surgery was consulted and recommended conservative management. She initially did not want an NG tube but eventually consented. Past Medical History Cardiac Medical History: Reports: Hypertension Denies: Atrial Fibrillation, Congestive Heart Failure, Coronary Artery Disease, DVT, Myocardial Infarction, Hyperlipidema, Pulmonary Embolism Pulmonary Medical History: Reports: Asthma, Pneumonia, Sleep Apnea - Noncompliant with home CPAP. Denies: Chronic Obstructive Pulmonary Disease (COPD) Neurological Medical History: Denies: Seizures Endocrine Medical History: Reports: Diabetes Mellitus Type 1, Diabetes Mellitus Type 2, Hypothyroidism Denies: Hyperthyroidism GI Medical History: Reports: Gastroesophageal Reflux Disease Denies: Cirrhosis, Hepatitis Musculoskeltal Medical History: Reports: Arthritis Psychiatric Medical History: Denies: Depression Past Surgical History Past Surgical History: Reports: Cardiac Catheterization - -6 years ago, was reported to be negative for CAD, Cholecystectomy, Hysterectomy Social History Lives with: [facility]pc Smoking Status: Never Smoker Electronic Cigarette use?: No Frequency of Alcohol Use: None Hx Recreational Drug Use: No Drugs: None Hx Prescription Drug Abuse: No Family History Family History: Reviewed & Not Pertinent, Arthritis, CAD, DM, Hyperlipidemia, Hypertension, Malignancy, Thyroid Disfunction Parental Family History Reviewed: Yes Children Family History Reviewed: Yes Sibling(s) Family History Reviewed.: Yes Medication/Allergy Home Medications: Albuterol Sulfate [Proair HFA Inhalation Aerosol 8.5 gm MDI] 2 puff IH Q4HP PRN 03/05/17 Amitriptyline HCl [Elavil 25 mg Tablet] 25 mg PO QHS 03/05/17 Cholecalciferol (Vitamin D3) [Vitamin D3 1000 Unit Tablet] 1,000 units PO DAILY 03/05/17 Diazepam [Valium 5 mg Tablet] 5 mg PO DAILYP PRN 03/05/17 Fluticasone Propionate [Flonase Nasal [place] 50 Mcg/[place] 16 gm] 2 spray NASL DAILY 03/05/17 Insulin Aspart [Novolog Flexpen] 14 units SUBCUT MEALS 03/05/17 Insulin Glargine,Hum.rec.anlog [Lantus Solostar] 16 units SUBCUT BID 03/05/17 L.acidoph,Paracasei, B.lactis [Probiotic] 1 cap PO DAILY 03/05/17 Levothyroxine Sodium [Synthroid 0.15 mg Tablet] 0.15 mg PO QAM 03/05/17 Multivitamin [Daily Multiple Vitamin] 1 tab PO DAILY 03/05/17 Omeprazole 40 mg PO DAILY 03/05/17 Telmisartan [Micardis 80 mg Tablet] 80 mg PO DAILY 03/05/17 Amlodipine Besylate [Norvasc 10 mg Tablet] 10 mg PO DAILY #30 tablet 03/06/17 Atorvastatin Calcium [Lipitor 40 mg Tablet] 40 mg PO QHS #30 tablet 03/06/17 Clindamycin HCl [Cleocin Hcl] 300 mg PO QID #28 capsule 05/26/17 Hydrocodone/Acetaminophen [Vicodin 5-300 mg Tablet] 1 tab PO ASDIR PRN #20 tab 05/26/17 Cyclobenzaprine HCl [Flexeril 10 mg Tablet] 10 mg PO TIDP PRN #15 tab 05/31/17 Gabapentin [Neurontin 300 mg Capsule] 300 mg PO Q12 #60 capsule 05/31/17 Ketorolac Tromethamine [Toradol 10 mg Tablet] 10 mg PO Q8HP PRN #20 tablet 05/31/17 Methylprednisolone [Medrol Dosepack (4 mg/Tab) 21 Tab/Dosepak] 4 mg PO ASDIR PRN #21 tab.ds.pk 05/31/17 Lorazepam [Ativan 0.5 mg Tablet] 0.25 mg PO Q8 #21 tab 06/12/17 Methocarbamol [Robaxin 500 mg Tablet] 500 mg PO BID #14 tablet 06/12/17 Hydrocodone Bit/Acetaminophen [Hydrocodon-Acetaminophen 5-325] 1 each PO Q4HP PRN #20 tablet 06/13/17 Compress.stocking,Knee,Reg,Lrg [Relief Knee Open Toe] 1 each MC DAILY #1 each 10/03/17 Hydrochlorothiazide 25 mg PO DAILY #5 tablet 10/03/17 Ibuprofen [Motrin 800 mg Tablet] 800 mg PO Q8H PRN #30 tab 10/03/17 Lidocaine HCl [Xylocaine 5% Ointment 35.44 gm] 1 applic TP TID PRN #1 tube 12/04/17 Cephalexin Monohydrate [Keflex 500 mg Capsule] 500 mg PO Q6H 7 Days capsule 02/09/18 Cephalexin Monohydrate [Keflex 500 mg Capsule] 500 mg PO Q8H 7 Days #21 capsule 02/28/18 Oxycodone HCl/Acetaminophen [Percocet 5-325 mg Tablet] 1 tab PO Q8H PRN #15 tab 02/28/18 Nitrofurantoin/Nitrofuran Mac [Macrobid 100 mg Capsule] 1 tab PO BID #20 capsule 03/14/18 Allergies/Adverse Reactions: Penicillins Allergy (Severe, Verified 04/15/20 08:58) rash Sulfa (Sulfonamide Antibiotics) Allergy (Intermediate, Verified 04/15/20 08:58) Swelling of Throat, morphine [Morphine] Adverse Reaction (Verified 04/15/20 08:58) shaking, "brain freezes" Review of Systems All systems: reviewed and no additional remarkable complaints except as stated - All systems were reviewed and were negative except as noted in HPI Physical Exam Vital Signs: Temp Pulse Resp BP Pulse Ox 97.9 F 16 178/66 H 95 04/15/20 08:14 04/15/20 11:01 04/15/20 11:01 04/15/20 11:01 Intake & Output 04/14/20 04/15/20 04/16/20 06:59 06:59 06:59 Intake Total 1050 Balance 1050 Weight 92.5 kg General appearance: PRESENT: cooperative, disheveled, mild distress, morbidly obese Head exam: PRESENT: atraumatic, normocephalic Eye exam: PRESENT: EOMI, PERRLA. ABSENT: conjunctival injection, nystagmus, scleral icterus Ear exam: PRESENT: normal external ear exam Mouth exam: PRESENT: dry mucosa, neck supple Teeth exam: PRESENT: poor dentation Throat exam: ABSENT: post pharyngeal erythema Neck exam: PRESENT: full ROM. ABSENT: carotid bruit, JVD, lymphadenopathy, meningismus, tenderness, thyromegaly Respiratory exam: PRESENT: clear to auscultation lubna, symmetrical, unlabored. ABSENT: accessory muscle use, chest wall tenderness, crackles, prolonged expiratory phas, rhonchi, tachypnea, wheezes Cardiovascular exam: PRESENT: RRR, +S1, +S2 Pulses: PRESENT: normal carotid pulses Vascular exam: PRESENT: normal capillary refill GI/Abdominal exam: PRESENT: diminished bowel sounds, distended, soft. ABSENT: guarding, rebound, tenderness Extremities exam: ABSENT: clubbing, pedal edema Musculoskeletal exam: PRESENT: normal inspection. ABSENT: deformity Neurological exam: PRESENT: awake, oriented to person, oriented to place, oriented to situation, CN II-XII grossly intact. ABSENT: motor sensory deficit - Generally weak Psychiatric exam: PRESENT: flat affect Skin exam: PRESENT: dry, warm, other - The skin on her legs was dry and flaky, and she had evidence of longstanding chronic venous insufficiency with a couple of different ulcers in various stages of scabbing Results Laboratory Results: 04/15/20 08:09 04/15/20 08:09 04/15/20 04/15/20 04/15/20 08:09 08:09 09:38 WBC 11.6 H RBC 5.00 Hgb 13.8 Hct 42.0 MCV 84 MCH 27.6 MCHC 32.8 RDW 15.8 H Plt Count 298 Seg Neutrophils % 88.4 H VBG pH 7.40 VBG pCO2 46.5 VBG HCO3 27.8 VBG Base Excess 2.3 Sodium 139.0 Potassium 4.3 Chloride 97 L Carbon Dioxide 27 Anion Gap 15 BUN 39 H Creatinine 0.63 Est GFR ( Amer) > 60 Glucose 361 H Calcium 10.4 H Magnesium 1.6 Total Bilirubin 0.8 AST 58 H Alkaline Phosphatase 296 H Total Protein 9.0 H Albumin 4.5 Lipase 88.3 Urine Color Urine Appearance Urine pH Ur Specific [place] Urine Protein Urine Glucose (UA) Urine Ketones Urine Blood Urine Nitrite Ur Leukocyte Esterase Urine WBC (Auto) Urine RBC (Auto) 04/15/20 10:40 WBC RBC Hgb Hct MCV MCH MCHC RDW Plt Count Seg Neutrophils % VBG pH VBG pCO2 VBG HCO3 VBG Base Excess Sodium Potassium Chloride Carbon Dioxide Anion Gap BUN Creatinine Est GFR ( Amer) Glucose Calcium Magnesium Total Bilirubin AST Alkaline Phosphatase Total Protein Albumin Lipase Urine Color SERAFIN Urine Appearance CLOUDY Urine pH 5.0 Ur Specific [place] 1.024 Urine Protein >=500 H Urine Glucose (UA) >=500 H Urine Ketones NEGATIVE Urine Blood SMALL H Urine Nitrite NEGATIVE Ur Leukocyte Esterase LARGE H Urine WBC (Auto) >182 Urine RBC (Auto) 25 Impressions: Abdomen X-Ray 04/15/20 09:00 IMPRESSION: Several air-filled dilated loops of bowel in the left hemiabdomen that measure up to 4.2 cm in diameter. Correlation with CT is recommended to exclude a mechanical obstruction. Abdomen/Pelvis CT 04/15/20 10:11 IMPRESSION: 1. Numerous fluid-filled dilated loops of jejunum in the left hemiabdomen that abruptly taper to a normal caliber at a focal point of the tra nsition in the mid abdomen (image 62 of series 102). These findings are concerning for a mechanical bowel obstruction. 2. Fat-containing ventral hernia associated with stranding of the herniated fat. KUB X-Ray 04/15/20 12:58 IMPRESSION: The tip of the enteric tube projects within the gastric lumen. Assessment and Plan - Diagnosis (1) Bowel obstruction Qualifiers: Intestinal obstruction type: obstruction due to adhesions Intestinal obstruction extent: complete Qualified Code(s): K56.52 - Intestinal adhesions [bands] with complete obstruction Is this a current diagnosis for this admission?: Yes (2) Chronic venous stasis dermatitis of both lower extremities Is this a current diagnosis for this admission?: Yes (3) Diabetes Qualifiers: Diabetes mellitus type: type 2 Diabetes mellitus correction insulin use: without correction use Diabetes mellitus complication status: with circulatory complication Diabetes mellitus complication detail: with peripheral angiopathy without gangrene Qualified Code(s): E11.51 - Type 2 diabetes mellitus with diabetic peripheral angiopathy without gangrene Is this a current diagnosis for this admission?: Yes (4) Morbid obesity Is this a current diagnosis for this admission?: Yes (5) Nausea and vomiting Qualifiers: Vomiting type: bilious vomiting Qualified Code(s): R11.14 - Bilious vomiting Is this a current diagnosis for this admission?: Yes (6) Sleep apnea syndrome Qualifiers: Sleep apnea type: obstructive Qualified Code(s): G47.33 - Obstructive sleep apnea (adult) (pediatric) Is this a current diagnosis for this admission?: Yes (7) Asthma Qualifiers: Asthma severity: mild Asthma persistence: intermittent Asthma complication type: uncomplicated Qualified Code(s): J45.20 - Mild intermittent asthma, uncomplicated Is this a current diagnosis for this admission?: Yes (8) GERD (gastroesophageal reflux disease) Qualifiers: Esophagitis presence: without esophagitis Qualified Code(s): K21.9 - Gastro-esophageal reflux disease without esophagitis Is this a current diagnosis for this admission?: Yes - Plan Summary Summary: Most of her home medications can fortunately be held. We will put her on some IV enalapril for blood pressure. We will put her on some IV fluids with dextrose and a sliding scale. NG tube to intermittent suction. We will try to manage her conservatively. Surgery was consulted in the ER we will continue to follow her as an inpatient. Hopefully this will resolve without the need for surgical intervention. - Time Time Spent with patient: 35 or more minutes Anticipated Discharge Disposition: [facility] Facility Anticipated Discharge Timeframe: Undetermin - Inpatient Certification Based on my medical assessment, after consideration of the patient's comorbidities, presenting symptoms, or acuity I expect that the services needed warrant INPATIENT care.: Yes I certify that my determination is in accordance with my understanding of Medicare's requirements for reasonable and necessary INPATIENT services [42 CFR 412.3e].: Yes Medical Necessity: Significant Comorbidiites Make Outpatient Treatment Too Risky, Need Close Monitoring Due to Risk of Patient Decompensation, Need For IV Fluids, Need For Continuous Telemetry Monitoring, Risk of Complication if Not Cared For in Hospital
[2020-04-15] MEDS: LORAZEPAM INJ 2 MG/1 ML VIAL IV PRN (19:00)
[2020-04-15] MEDS: ENALAPRILAT DIHYDRATE INJ/PF 1.25 MG/1 ML SDV IV SCH (19:29)
[2020-04-15] MEDS: INSULIN LISPRO 100 UNIT/ML 3 ML VIAL SUBCUT SCH (19:33)
--- NOTE | 2020-04-15 19:43 | RADIOLOGY REPORT (SQ) ---
EXAM DESCRIPTION: KUB/ABDOMEN (SINGLE VIEW) IMAGES COMPLETED DATE/TIME: 04/15/2020 7:25 pm REASON FOR STUDY: NG tube placement verification COMPARISON: None. NUMBER OF VIEWS: One view. TECHNIQUE: Supine radiographic image of the abdomen acquired. LIMITATIONS: None. FINDINGS: Dilated loops of small bowel. The NG tube extends to the greater curvature of the stomach . IMPRESSION: NG tube as described. Small bowel obstruction. TECHNICAL DOCUMENTATION: JOB ID: [id number] 2010 [employer]- All Rights Reserved Reading location - IP/workstation name: [email or web address]
[2020-04-15] MEDS: HEPARIN SOD (PORCINE) 5,000 UNIT/ML 1 ML VIAL SUBCUT SCH (22:14)
[2020-04-16] MEDS: ENALAPRILAT DIHYDRATE INJ/PF 1.25 MG/1 ML SDV IV SCH ×4 (01:04→18:34)
[2020-04-16] MEDS: INSULIN LISPRO 100 UNIT/ML 3 ML VIAL SUBCUT SCH ×5 (01:04→18:35)
[2020-04-16] MEDS ORDERED: KETOROLAC TROMETHAMINE INJ/PF 30 MG/1 ML SDV ONE (02:36)
[2020-04-16] MEDS: ONDANSETRON HCL INJ/PF 4 MG/2 ML SDV IV PRN (02:39)
[2020-04-16] MEDS ORDERED: KETOROLAC TROMETHAMINE INJ/PF 30 MG/1 ML SDV IV ONE (02:45)
[2020-04-16] MEDS: LORAZEPAM INJ 2 MG/1 ML VIAL IV PRN ×3 (03:00→23:00)
[2020-04-16] MEDS: HEPARIN SOD (PORCINE) 5,000 UNIT/ML 1 ML VIAL SUBCUT SCH ×3 (06:43→22:14)
[2020-04-16 07:21] LABS: HEMATOCRIT 39.9 % (36.0-47.0); HEMOGLOBIN 13.4 g/dL (12.0-15.5); MEAN CORPUSCULAR HEMOGLOBIN 27.8 pg (27.0-33.4); MEAN CORPUSCULAR HGB CONC 33.7 g/dL (32.0-36.0); MEAN CORPUSCULAR VOLUME 83 fl (80-97); PLATELET COUNT 287 10^3/uL (150-450); RED BLOOD COUNT 4.83 10^6/uL (3.72-5.28); RED CELL DISTRIBUTION WIDTH 15.9 % (11.5-14.0); WHITE BLOOD COUNT 7.5 10^3/uL (4.0-10.5)
[2020-04-16 07:40] LABS: ALBUMIN 4.1 g/dL (3.5-5.0); ALKALINE PHOSPHATASE 250 U/L (38-126); ANION GAP 13 (5-19); ASPARTATE AMINO TRANSFERASE 44 U/L (14-36); BILIRUBIN,DIRECT 0.3 mg/dL (0.0-0.4); BILIRUBIN,TOTAL 0.6 mg/dL (0.2-1.3); BLOOD UREA NITROGEN 50 mg/dL (7-20); CALCIUM 9.9 mg/dL (8.4-10.2); CARBON DIOXIDE 32 mmol/L (22-30); CHLORIDE 96 mmol/L (98-107); TOTAL PROTEIN 8.6 g/dL (6.3-8.2)
[2020-04-16 07:48] LABS: GLUCOSE 404 mg/dL (75-110)
[2020-04-16] MEDS ORDERED: INSULIN GLARGINE,HUM.REC.ANLOG 1,000 UNIT/10 ML VIAL SUBCUT ONE (09:30)
--- NOTE | 2020-04-16 09:50 | RADIOLOGY REPORT (SQ) ---
EXAM DESCRIPTION: KUB/ABDOMEN (SINGLE VIEW) IMAGES COMPLETED DATE/TIME: 04/16/2020 9:29 am REASON FOR STUDY: change in bowel pattern COMPARISON: AP view of the abdomen from 04/15/2020. NUMBER OF VIEWS: One view. TECHNIQUE: AP supine views of the abdomen were obtained. LIMITATIONS: None. FINDINGS: BOWEL GAS PATTERN: Persistent and unchanged dilatation of several loops of bowel in the le ft hemiabdomen. CALCIFICATIONS: Extensive vascular calcifications. SOFT TISSUES: Excreted contrast within the urinary bladder. HARDWARE: Cholecystectomy clips. The tip of the enteric tube projects within the gastric lumen. BONES: No acute abnormality. OTHER: No other findings. IMPRESSION: Persistent and unchanged dilatation of several loops of bowel in the left lower quadrant . TECHNICAL DOCUMENTATION: JOB ID: [id number] 2010 [employer]- All Rights Reserved Reading location - IP/workstation name: [email or web address]
[2020-04-16] MEDS ORDERED: INSULIN GLARGINE,HUM.REC.ANLOG 1,000 UNIT/10 ML VIAL (PYX) SUBCUT ONE (10:00)
[2020-04-16] MEDS: POTASSI CL 20 MEQ/50 ML RIDER 20 MEQ/50 ML RTUPB IV SCH ×2 (10:07→12:17)
--- NOTE | 2020-04-16 10:20 | PDOC PROGRESS REPORT ---
Subjective Date:: 04/16/20 Subjective:: States that she feels better. Had a bowel movement last night and has been pass ing small amounts of gas today. Reason For Visit: SBO Physical Exam Vital Signs: Temp Pulse Resp BP Pulse Ox 98.2 F 87 16 158/76 H 93 04/15/20 19:01 04/16/20 06:43 04/15/20 19:01 04/16/20 06:43 04/15/20 19:01 Intake & Output 04/15/20 04/16/20 04/17/20 06:59 06:59 06:59 Intake Total 2049 Output Total 1500 Balance 2049 -1499 Weight 83 kg General appearance: PRESENT: no acute distress, cooperative Respiratory exam: PRESENT: clear to auscultation lubna Cardiovascular exam: PRESENT: RRR GI/Abdominal exam: PRESENT: other - Soft, obese, mildly distended, no tenderness to palpation. High-pitched bowel sounds. NG output is bile tinged. Results Laboratory Results: 04/16/20 05:58 04/16/20 05:58 04/15/20 04/16/20 04/16/20 10:40 05:58 05:58 WBC 7.5 RBC 4.83 Hgb 13.4 Hct 39.9 MCV 83 MCH 27.8 MCHC 33.7 RDW 15.9 H Plt Count 287 Sodium 141.3 Potassium 3.0 L* D Chloride 96 L Carbon Dioxide 32 H Anion Gap 13 BUN 50 H Creatinine 0.96 Est GFR ( Amer) > 60 Glucose 404 H* Calcium 9.9 Total Bilirubin 0.6 AST 44 H Alkaline Phosphatase 250 H Total Protein 8.6 H Albumin 4.1 Urine Color SERAFIN Urine Appearance CLOUDY Urine pH 5.0 Ur Specific [place] 1.024 Urine Protein >=500 H Urine Glucose (UA) >=500 H Urine Ketones NEGATIVE Urine Blood SMALL H Urine Nitrite NEGATIVE Ur Leukocyte Esterase LARGE H Urine WBC (Auto) >182 Urine RBC (Auto) 25 Impressions: Abdomen X-Ray 04/15/20 09:00 IMPRESSION: Several air-filled dilated loops of bowel in the left hemiabdomen that measure up to 4.2 cm in diameter. Correlation with CT is recommended to exclude a mechanical obstruction. Abdomen/Pelvis CT 04/15/20 10:11 IMPRESSION: 1. Numerous fluid-filled dilated loops of jejunum in the left hemiabdomen that abruptly taper to a normal caliber at a focal point of the transition in the mid abdomen (image 62 of series 102). These findings are concerning for a mechanical bowel obstruction. 2. Fat-containing ventral hernia associated with stranding of the herniated fat. KUB X-Ray 04/16/20 00:00 IMPRESSION: Persistent and unchanged dilatation of several loops of bowel in the left lower quadrant. Assessment & Plan - Diagnosis (1) Small bowel obstruction Is this a current diagnosis for this admission?: Yes Plan: Although symptomatically improved patient still has bile tinged output via NG and a abdominal x-ray with small bowel dilatation in the left abdomen. Continue conservative management with NG tube and IV fluids. Patient will need her electrolytes corrected. Her potassium is 3 and her glucose is in the 400s. Will repeat abdominal films tomorrow. - Time Anticipated Discharge Disposition: Home, Self Care Anticipated Discharge Timeframe: within 72 hours
[2020-04-16] MEDS: POTASSI CL 20 MEQ/D5-1/2NS 1L 1,000 ML IV PRN (12:21)
--- NOTE | 2020-04-16 18:12 | PDOC PROGRESS REPORT ---
Subjective Date:: 04/16/20 Subjective:: No adverse events overnight. We gave her some ice chips and told her to only ta ke a few at a time but apparently she was able to get her hands on a large 1 L cupful of ice chips and she managed to suck the whole thing in and she wound up vomiting. Her ice chips have been subsequently removed. Her potassium was low this morning and was replaced through the IV. Her blood sugars have been very high and so her insulin has been adjusted. Reason For Visit: SBO Physical Exam Vital Signs: Temp Pulse Resp BP Pulse Ox 97.9 F 86 17 126/50 H 94 04/16/20 11:35 04/16/20 12:18 04/16/20 11:35 04/16/20 12:18 04/16/20 11:35 Intake & Output 04/15/20 04/16/20 04/17/20 06:59 06:59 06:59 Intake Total 2049 1100 Output Total 1500 Balance 2049 -400 Weight 83 kg General appearance: PRESENT: cooperative, disheveled, mild distress, morbidly obese Respiratory exam: PRESENT: clear to auscultation lubna, symmetrical, unlabored. ABSENT: accessory muscle use, chest wall tenderness, crackles, prolonged ex piratory phase, rhonchi, tachypnea, wheezes Cardiovascular exam: PRESENT: RRR, +S1, +S2 Pulses: PRESENT: normal carotid pulses Vascular exam: PRESENT: normal capillary refill GI/Abdominal exam: PRESENT: diminished bowel sounds, distended, soft. ABSENT: guarding, rebound, tenderness Extremities exam: ABSENT: clubbing, pedal edema Musculoskeletal exam: PRESENT: normal inspection. ABSENT: deformity Neurological exam: PRESENT: awake, oriented to person, oriented to place, oriented to situation Psychiatric exam: PRESENT: Anxious Skin exam: PRESENT: dry, warm, other - The skin on her legs was dry and flaky, and she had evidence of longstanding chronic venous insufficiency with a couple of different ulcers in various stages of scabbing Results Laboratory Results: 04/16/20 05:58 04/16/20 05:58 04/16/20 04/16/20 05:58 05:58 WBC 7.5 RBC 4.83 Hgb 13.4 Hct 39.9 MCV 83 MCH 27.8 MCHC 33.7 RDW 15.9 H Plt Count 287 Sodium 141.3 Potassium 3.0 L* D Chloride 96 L Carbon Dioxide 32 H Anion Gap 13 BUN 50 H Creatinine 0.96 Est GFR ( Amer) > 60 Glucose 404 H* Calcium 9.9 Total Bilirubin 0.6 AST 44 H Alkaline Phosphatase 250 H Total Protein 8.6 H Albumin 4.1 Impressions: Abdomen X-Ray 04/15/20 09:00 IMPRESSION: Several air-filled dilated loops of bowel in the left hemiabdomen that measure up to 4.2 cm in diameter. Correlation with CT is recommended to exclude a mechanical obstruction. Abdomen/Pelvis CT 04/15/20 10:11 IMPRESSION: 1. Numerous fluid-filled dilated loops of jejunum in the left hemiabdomen that abruptly taper to a normal caliber at a focal point of the transition in the mid abdomen (image 62 of series 102). These findings are concerning for a mechanical bowel obstruction. 2. Fat-containing ventral hernia associated with stranding of the herniated fat. KUB X-Ray 04/16/20 00:00 IMPRESSION: Persistent and unchanged dilatation of several loops of bowel in the left lower quadrant. Assessment and Plan - Diagnosis (1) Bowel obstruction Qualifiers: Intestinal obstruction type: obstruction due to adhesions Intestinal obstruction extent: complete Qualified Code(s): K56.52 - Intestinal adhesions [bands] with complete obstruction Is this a current diagnosis for this admission?: Yes (2) Chronic venous stasis dermatitis of both lower extremities Is this a current diagnosis for this admission?: Yes (3) Diabetes Qualifiers: Diabetes mellitus type: type 2 Diabetes mellitus information specialist insulin use: without information specialist use Diabetes mellitus complication status: with circulatory complication Diabetes mellitus complication detail: with peripheral angiopathy without gangrene Qualified Code(s): E11.51 - Type 2 diabetes mellitus with diabetic peripheral angiopathy without gangrene Is this a current diagnosis for this admission?: Yes (4) Morbid obesity Is this a current diagnosis for this admission?: Yes (5) Nausea and vomiting Qualifiers: Vomiting type: bilious vomiting Qualified Code(s): R11.14 - Bilious vomiting Is this a current diagnosis for this admission?: Yes (6) Sleep apnea syndrome Qualifiers: Sleep apnea type: obstructive Qualified Code(s): G47.33 - Obstructive sleep apnea (adult) (pediatric) Is this a current diagnosis for this admission?: Yes (7) Asthma Qualifiers: Asthma severity: mild Asthma persistence: intermittent Asthma complication type: uncomplicated Qualified Code(s): J45.20 - Mild intermittent asthma, uncomplicated Is this a current diagnosis for this admission?: Yes (8) GERD (gastroesophageal reflux disease) Qualifiers: Esophagitis presence: without esophagitis Qualified Code(s): K21.9 - Gas tro-esophageal reflux disease without esophagitis Is this a current diagnosis for this admission?: Yes - Plan Summary Summary: Continue n.p.o. with NG tube suction. She has lost her ice chip privileges. If she gets ice chips again, she cannot be allowed to have very much at a time and has to be spaced out. Otherwise she will take as much as she can as fast as she can and she will throw up again. Surgery service continues to follow. Hoping to avoid surgery. - Time Time Spent with patient: 15-24 minutes Anticipated Discharge Disposition: Long Term Facility Anticipated Discharge Timeframe: Unknown
[2020-04-17] MEDS: INSULIN LISPRO 100 UNIT/ML 3 ML VIAL SUBCUT SCH ×7 (00:36→18:16)
[2020-04-17] MEDS: INSULIN GLARGINE,HUM.REC.ANLOG 1,000 UNIT/10 ML VIAL SUBCUT SCH (00:37)
[2020-04-17] MEDS: ENALAPRILAT DIHYDRATE INJ/PF 1.25 MG/1 ML SDV IV SCH ×4 (00:42→18:06)
[2020-04-17] MEDS: ONDANSETRON HCL INJ/PF 4 MG/2 ML SDV IV PRN (00:51)
[2020-04-17] MEDS: POTASSI CL 20 MEQ/D5-1/2NS 1L 1,000 ML IV PRN (05:03)
[2020-04-17] MEDS: HEPARIN SOD (PORCINE) 5,000 UNIT/ML 1 ML VIAL SUBCUT SCH ×3 (05:37→21:40)
--- NOTE | 2020-04-17 06:25 | RADIOLOGY REPORT (SQ) ---
CHEST X-RAY 1 VIEW on 04/17/2020 at 5:52 AM CLINICAL INDICATION: NG tube placement COMPARISON: 03/04/2017 FINDINGS: NG tube extends into the upper body of the stomach. Evaluation of the lungs is limited by technique on this exam. Lungs appear grossly clear. Cardiac, hilar and mediastinal contours are within normal limits. A few wires are noted projecting over the chest. IMPRESSION: NG tube tip in the body of the stomach.
[2020-04-17 07:03] LABS: ALBUMIN 4.2 g/dL (3.5-5.0); ALKALINE PHOSPHATASE 227 U/L (38-126); ANION GAP 14 (5-19); ASPARTATE AMINO TRANSFERASE 31 U/L (14-36); BILIRUBIN,DIRECT 0.2 mg/dL (0.0-0.4); BILIRUBIN,TOTAL 0.7 mg/dL (0.2-1.3); BLOOD UREA NITROGEN 63 mg/dL (7-20); CALCIUM 10.1 mg/dL (8.4-10.2); CARBON DIOXIDE 37 mmol/L (22-30); CHLORIDE 91 mmol/L (98-107); GLUCOSE 325 mg/dL (75-110); POTASSIUM 3.1 mmol/L (3.6-5.0); TOTAL PROTEIN 8.9 g/dL (6.3-8.2)
[2020-04-17 07:23] LABS: HEMATOCRIT 41.5 % (36.0-47.0); HEMOGLOBIN 13.7 g/dL (12.0-15.5); MEAN CORPUSCULAR HEMOGLOBIN 27.5 pg (27.0-33.4); MEAN CORPUSCULAR VOLUME 83 fl (80-97); PLATELET COUNT 300 10^3/uL (150-450); RED BLOOD COUNT 4.99 10^6/uL (3.72-5.28); RED CELL DISTRIBUTION WIDTH 15.8 % (11.5-14.0); WHITE BLOOD COUNT 9.7 10^3/uL (4.0-10.5)
[2020-04-17] MEDS ORDERED: POTASSI CL 20 MEQ/50 ML RIDER 20 MEQ/50 ML RTUPB IV ONE (08:30)
--- NOTE | 2020-04-17 08:30 | RADIOLOGY REPORT (SQ) ---
EXAM DESCRIPTION: KUB/ABDOMEN (SINGLE VIEW) IMAGES COMPLETED DATE/TIME: 04/16/2020 8:45 pm REASON FOR STUDY: Vomiting COMPARISON: 04/16/2020, 04/15/2020 NUMBER OF VIEWS: 3 images obtained. TECHNIQUE: Supine radiographic image of the abdomen acquired. LIMITATIONS: None. FINDINGS: BOWEL GAS PATTERN: Re- demonstration gas distended loops of small bowel within the left he miabdomen, similar to that seen on comparison imaging. The stomach likewise appears gas-filled on to day's examination. CALCIFICATIONS: No suspicious calcifications. SOFT TISSUES: No gross mass or suggestion of organomegaly. HARDWARE: Cholecystectomy clips. Previously demonstrated enteric tube is not visualized on the image s provided. BONES: No acute fracture. No worrisome bone lesions. OTHER: No other significant finding. IMPRESSION: Re- demonstration of multiple gas distended loops of small bowel within the hemiabdomen. The thymic is likewise appears gas-filled on today's examination. Interval removal of the previous ly demonstrated enteric tube. TECHNICAL DOCUMENTATION: JOB ID: [id number] 2010 [employer]- All Rights Reserved Reading location - IP/workstation name: [email or web address]
[2020-04-17] MEDS ORDERED: NORMAL SALINE 1000 ML 1,000 ML IV PRN (08:31)
--- NOTE | 2020-04-17 11:38 | RADIOLOGY REPORT (SQ) ---
EXAM DESCRIPTION: ABDOMEN 2 VIEWS IMAGES COMPLETED DATE/TIME: 04/17/2020 11:21 am REASON FOR STUDY: f/u sbo COMPARISON: None. NUMBER OF VIEWS: Two views. TECHNIQUE: Supine and erect/decubitus radiographic images of the abdomen acquired. LIMITATIONS: None. FINDINGS: FREE AIR: None. No abnormal gas collections. LUNG BASES: Clear. BOWEL GAS PATTERN: Re- demonstration of gas distended loops of small bowel within the left hemiabdome n, similar to that seen on comparison imaging. Diminished gas is seen within the stomach. CALCIFICATIONS: No suspicious calcifications. SOFT TISSUES: No gross mass or suggestion of organomegaly. HARDWARE: Interval replacement of an enteric tube, the tip and proximal port of which projects subdia phragmatically within the left upper quadrant. BONES: No acute fracture. No worrisome bone lesions. OTHER: No other significant finding. IMPRESSION: Re- demonstration of multiple gas distended loops of small bowel within the left hemiabd omen. Interval placement of an enteric tube demonstrating appropriate positioning. Diminished gastr ic gas. TECHNICAL DOCUMENTATION: JOB ID: [id number] 2010 [employer]- All Rights Reserved Reading location - IP/workstation name: [email or web address]
[2020-04-17] MEDS: LEVOFLOXACIN 500 MG/D5W RTU 500 MG/100 ML RTUPB IV SCH (12:37)
--- NOTE | 2020-04-17 13:13 | PDOC PROGRESS REPORT ---
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 Apparently she ate last night but is not had anything to eat since. She apparently had a loose [place] colored stool yesterday. She had nausea vomiting and reported altered mental status. She was sent to the ER for evaluation. She was found to have a distended abdomen. CT abdomen pelvis showed dilated small bowel loops in the left abdomen with a transition point in the mid abdomen. Surgery was consulted and recommended conservative management. She initially did not want an NG tube but eventually consented. 04/16/20-No adverse events overnight. We gave her some ice chips and told her to only take a few at a time but apparently she was able to get her hands on a large 1 L cupful of ice chips and she managed to suck the whole thing in and she wound up vomiting. Her ice chips have been subsequently removed. Her potassium was low this morning and was replaced through the IV. Her blood sugars have been very high and so her insulin has been adjusted. 04/17/2020-patient is expressing desire to drink water. NG tube is still actively trying. Abdomen with no bowel sounds. On gentle palpation patient is complaining of generalized abdominal pain. KUB done this morning indicated of multiple gas distended loops of small bowel in the left hemiabdomen. Surgical team on board. Reason For Visit: SBO Physical Exam Vital Signs: Temp Pulse Resp BP Pulse Ox 97.5 F 97 17 128/67 H 94 04/17/20 08:26 04/17/20 08:26 04/17/20 08:26 04/17/20 08:26 04/17/20 08:26 Intake & Output 04/16/20 04/17/20 04/18/20 06:59 06:59 06:59 Intake Total 2049 1934 Output Total 2999 Balance 2049 -1064 Weight 83 kg 83 kg General appearance: PRESENT: no acute distress, cooperative, mild distress, morbidly obese Head exam: PRESENT: atraumatic Eye exam: PRESENT: PERRLA Ear exam: PRESENT: normal external ear exam Mouth exam: PRESENT: neck supple Teeth exam: PRESENT: poor dentation Neck exam: PRESENT: other - NG tube in place.. ABSENT: carotid bruit, JVD, lymphadenopathy, thyromegaly Respiratory exam: PRESENT: clear to auscultation lubna. ABSENT: rales, rhonchi, wheezes Cardiovascular exam: PRESENT: RRR. ABSENT: diastolic murmur, rubs, systolic murmur GI/Abdominal exam: PRESENT: tenderness. ABSENT: normal bowel sounds Rectal exam: PRESENT: deferred Neurological exam: PRESENT: alert, awake, oriented to person, oriented to place, oriented to time, oriented to situation, CN II-XII grossly intact. ABSENT: motor sensory deficit Psychiatric exam: PRESENT: appropriate affect, normal mood. ABSENT: homicidal ideation, suicidal ideation Results Laboratory Results: 04/17/20 06:32 04/17/20 06:32 04/17/20 04/17/20 06:32 06:32 WBC 9.7 RBC 4.99 Hgb 13.7 Hct 41.5 MCV 83 MCH 27.5 MCHC 33.0 RDW 15.8 H Plt Count 300 Sodium 141.5 Potassium 3.1 L Chloride 91 L Carbon Dioxide 37 H Anion Gap 14 BUN 63 H Creatinine 1.22 Est GFR ( Amer) 53 L Glucose 325 H Calcium 10.1 Total Bilirubin 0.7 AST 31 Alkaline Phosphatase 227 H Total Protein 8.9 H Albumin 4.2 04/15/20 10:40 Catheterized Urine Urine Culture - Final Klebsiella Pneumoniae Impressions: Abdomen/Pelvis CT 04/15/20 10:11 IMPRESSION: 1. Numerous fluid-filled dilated loops of jejunum in the left hemiabdomen that abruptly taper to a normal caliber at a focal point of the transition in the mid abdomen (image 62 of series 102). These findings are concerning for a mechanical bowel obstruction. 2. Fat-containing ventral hernia associated with stranding of the herniated fat. KUB X-Ray 04/16/20 00:00 IMPRESSION: Re- demonstration of multiple gas distended loops of small bowel within the hemiabdomen. The thymic is likewise appears gas-filled on today's examination. Interval removal of the previously demonstrated enteric tube. Chest X-Ray 04/17/20 00:00 IMPRESSION: NG tube tip in the body of the stomach. Abdomen X-Ray 04/17/20 07:00 IMPRESSION: Re- demonstration of multiple gas distended loops of small bowel within the left hemiabdomen. Interval placement of an enteric tube demonstrating appropriate positioning. Diminished gastric gas. Assessment and Plan - Diagnosis (1) Bowel obstruction Qualifiers: Intestinal obstruction type: obstruction due to adhesions Intestinal obstruction extent: complete Qualified Code(s): K56.52 - Intestinal adhesions [bands] with complete obstruction Is this a current diagnosis for this admission?: Yes Plan: 04/17/2020-patient admitted for small bowel obstruction. NG tube in place actively draining. KUB indicates multiple gas distended loops of small bowel in the left hemiabdomen. Surgical team is following the patient. (2) Chronic venous stasis dermatitis of both lower extremities Is this a current diagnosis for this admission?: No (3) Diabetes Qualifiers: Diabetes mellitus type: type 2 Diabetes mellitus senior living insulin use: without terminal gauger use Diabetes mellitus complication status: with circulatory complication Diabetes mellitus complication detail: with peripheral angiopathy without gangrene Qualified Code(s): E11.51 - Type 2 diabetes mellitus with diabetic peripheral angiopathy without gangrene Is this a current diagnosis for this admission?: Yes Plan: 12/16/2019-patient is n.p.o. at this time. Latest blood sugar is 325. Continue insulin sliding scale. (4) Morbid obesity Is this a current diagnosis for this admission?: No Plan: 04/17/2020-patient BMI is more than 34. Diet exercise weight loss lifestyle modifications discussed with the patient. (5) Nausea and vomiting Qualifiers: Vomiting type: bilious vomiting Qualified Code(s): R11.14 - Bilious vomiting Is this a current diagnosis for this admission?: Yes Plan: 04/17/2020-patient came in with complaints of nausea and vomitings he has NG tube in place now. (6) GERD (gastroesophageal reflux disease) Qualifiers: Esophagitis presence: without esophagitis Qualified Code(s): K21.9 - Gastro-esophageal reflux disease without esophagitis Is this a current diagnosis for this admission?: Yes - Plan Summary Summary: Continue n.p.o. with NG tube suction. She has lost her ice chip privileges. If she gets ice chips again, she cannot be allowed to have very much at a time and has to be spaced out. Otherwise she will take as much as she can as fast as she can and she will throw up again. Surgery service continues to follow. Hoping to avoid surgery. - Time Anticipated Discharge Disposition: Home, Self Care Anticipated Discharge Timeframe: within 72 hours
[2020-04-17] MEDS: LORAZEPAM INJ 2 MG/1 ML VIAL IV PRN ×2 (14:31→21:40)
--- NOTE | 2020-04-17 16:58 | PDOC PROGRESS REPORT ---
Subjective Date:: 04/17/20 Subjective:: 64-year-old female with a small bowel obstruction. She is not passing any flatu s. She has not had a bowel movement. Her NG tube continues to be productive. She complains of abdominal pain, nausea, and vomiting (despite her NG tube). She denies chest pain, shortness of breath. Reason For Visit: SBO Physical Exam Vital Signs: Temp Pulse Resp BP Pulse Ox 97.5 F 100 17 117/61 94 04/17/20 10:00 04/17/20 14:00 04/17/20 08:26 04/17/20 12:38 04/17/20 08:26 Intake & Output 04/16/20 04/17/20 04/18/20 06:59 06:59 06:59 Intake Total 2049 1934 150 Output Total 3000 Balance 2049 -1064 150 Weight 83 kg 83 kg General appearance: PRESENT: obese Head exam: PRESENT: atraumatic, normocephalic Eye exam: PRESENT: EOMI, PERRLA. ABSENT: scleral icterus Mouth exam: PRESENT: moist, neck supple Neck exam: ABSENT: meningismus, tenderness, thyromegaly, tracheal deviation Respiratory exam: PRESENT: unlabored. ABSENT: tachypnea, wheezes Cardiovascular exam: ABSENT: tachycardia GI/Abdominal exam: PRESENT: distended, soft, tenderness - Mild tenderness to palpation. ABSENT: rigid Rectal exam: PRESENT: deferred Extremities exam: ABSENT: clubbing Neurological exam: PRESENT: alert, awake, oriented to person, oriented to place, oriented to time Psychiatric exam: ABSENT: agitated, anxious, depressed Focused psych exam: ABSENT: delusional Skin exam: ABSENT: cyanosis, erythema, jaundice Results Laboratory Results: 04/17/20 06:32 04/17/20 06:32 04/17/20 04/17/20 06:32 06:32 WBC 9.7 RBC 4.99 Hgb 13.7 Hct 41.5 MCV 83 MCH 27.5 MCHC 33.0 RDW 15.8 H Plt Count 300 Sodium 141.5 Potassium 3.1 L Chloride 91 L Carbon Dioxide 37 H Anion Gap 14 BUN 63 H Creatinine 1.22 Est GFR ( Amer) 53 L Glucose 325 H Calcium 10.1 Total Bilirubin 0.7 AST 31 Alkaline Phosphatase 227 H Total Protein 8.9 H Albumin 4.2 04/15/20 10:40 Catheterized Urine Urine Culture - Final Klebsiella Pneumoniae Impressions: Abdomen/Pelvis CT 04/15/20 10:11 IMPRESSION: 1. Numerous fluid-filled dilated loops of jejunum in the left hemiabdomen that abruptly taper to a normal caliber at a focal point of the transition in the mid abdomen (image 62 of series 102). These findings are concerning for a mechanical bowel obstruction. 2. Fat-containing ventral hernia associated with stranding of the herniated fat. KUB X-Ray 04/16/20 00:00 IMPRESSION: Re- demonstration of multiple gas distended loops of small bowel within the hemiabdomen. The thymic is likewise appears gas-filled on today's examination. Interval removal of the previously demonstrated enteric tube. Chest X-Ray 04/17/20 00:00 IMPRESSION: NG tube tip in the body of the stomach. Abdomen X-Ray 04/17/20 07:00 IMPRESSION: Re- demonstration of multiple gas distended loops of small bowel within the left hemiabdomen. Interval placement of an enteric tube demonstrating appropriate positioning. Diminished gastric gas. Assessment & Plan - Diagnosis (1) Small bowel obstruction Is this a current diagnosis for this admission?: Yes - Time Anticipated Discharge Disposition: unknown Anticipated Discharge Timeframe: unknown - Plan Summary Plan Summary: 64-year-old female with a small bowel obstruction. She is not passing flatus, and she has not had a bowel movement. Her x-ray still suggests small bowel obstruction. Her abdomen is distended and tender. She continues to produce large amounts of bilious output from her NG. Hopefully, over the next 24 hours her symptoms will improve. If she does not improve, she may require surgical intervention. Covid test is pending. Surgery will follow.
--- NOTE | 2020-04-17 17:27 | CDI QUERY ---
CDI Query CDI Review: Dear Provider, Please further specify lab finding: KLEBSIELLA in urine culture and document in progress notes and D/C summary. UTI, POA ABNORMAL LAB FINDING only OTHER? Data: continuing levofloxacin Thanks, Guadalupe Bains, CDI [phone]
[2020-04-18] MEDS: INSULIN LISPRO 100 UNIT/ML 3 ML VIAL SUBCUT SCH ×8 (00:25→23:52)
[2020-04-18] MEDS: ENALAPRILAT DIHYDRATE INJ/PF 1.25 MG/1 ML SDV IV SCH ×5 (00:25→23:52)
[2020-04-18] MEDS: INSULIN GLARGINE,HUM.REC.ANLOG 1,000 UNIT/10 ML VIAL SUBCUT SCH ×2 (00:26→23:36)
[2020-04-18] MEDS: HEPARIN SOD (PORCINE) 5,000 UNIT/ML 1 ML VIAL SUBCUT SCH ×3 (06:22→23:26)
[2020-04-18] MEDS: LORAZEPAM INJ 2 MG/1 ML VIAL IV PRN ×2 (06:31→15:20)
[2020-04-18 06:41] LABS: HEMOGLOBIN 13.8 g/dL (12.0-15.5); MEAN CORPUSCULAR HEMOGLOBIN 27.8 pg (27.0-33.4); MEAN CORPUSCULAR HGB CONC 33.6 g/dL (32.0-36.0); MEAN CORPUSCULAR VOLUME 83 fl (80-97); PLATELET COUNT 316 10^3/uL (150-450); RED BLOOD COUNT 4.95 10^6/uL (3.72-5.28); RED CELL DISTRIBUTION WIDTH 15.7 % (11.5-14.0)
[2020-04-18 07:09] LABS: ALBUMIN 4.2 g/dL (3.5-5.0); ALKALINE PHOSPHATASE 201 U/L (38-126); ASPARTATE AMINO TRANSFERASE 18 U/L (14-36); BILIRUBIN,DIRECT 0.4 mg/dL (0.0-0.4); BILIRUBIN,TOTAL 0.7 mg/dL (0.2-1.3); CALCIUM 10.3 mg/dL (8.4-10.2); CHLORIDE 81 mmol/L (98-107); GLUCOSE 263 mg/dL (75-110); TOTAL PROTEIN 8.3 g/dL (6.3-8.2)
[2020-04-18 07:19] LABS: ANION GAP 21 (5-19); BLOOD UREA NITROGEN 83 mg/dL (7-20)
[2020-04-18 07:25] LABS: CARBON DIOXIDE 42 mmol/L (22-30)
[2020-04-18] MEDS ORDERED: NORMAL SALINE 1000 ML 1,000 ML IV PRN (08:00)
[2020-04-18] MEDS ORDERED: INFLUENZA QUAD (6MOS+) 2020-21 VAC 0.5 ML SYR IM ONE (08:00)
--- NOTE | 2020-04-18 08:24 | PDOC PROGRESS REPORT ---
Subjective Date:: 04/18/20 Subjective:: Denies abdominal pain however patient is very thirsty. Patient had passage of f latus last night as per the patient and the nursing staff. Reason For Visit: SBO Physical Exam Vital Signs: Temp Pulse Resp BP Pulse Ox 98.5 F 99 17 101/56 L 92 04/18/20 00:00 04/18/20 07:00 04/18/20 00:00 04/18/20 06:22 04/18/20 00:00 Intake & Output 04/17/20 04/18/20 04/19/20 06:59 06:59 06:59 Intake Total 1935 1150 Output Total 3000 2100 Balance -1065 -950 Weight 83 kg 83 kg General appearance: PRESENT: cooperative, mild distress Respiratory exam: PRESENT: clear to auscultation lubna Cardiovascular exam: PRESENT: tachycardia GI/Abdominal exam: PRESENT: other - Soft, protuberant, difficult to tell distention but abdomen is not tight. There is very mild lower abdominal tenderness without peritoneal signs. Bowel sounds are diminished. NG output is bile tinged. Neurological exam: PRESENT: alert, awake Psychiatric exam: PRESENT: anxious Results Laboratory Results: 04/18/20 06:24 04/18/20 06:24 04/18/20 04/18/20 06:24 06:24 WBC 11.0 H RBC 4.95 Hgb 13.8 Hct 41.0 MCV 83 MCH 27.8 MCHC 33.6 RDW 15.7 H Plt Count 316 Sodium 143.6 Potassium 3.0 L* Chloride 81 L Carbon Dioxide 42 H* Anion Gap 21 H BUN 83 H D Creatinine 2.91 H Est GFR ( Amer) 20 L Glucose 263 H Calcium 10.3 H Total Bilirubin 0.7 AST 18 Alkaline Phosphatase 201 H Total Protein 8.3 H Albumin 4.2 04/15/20 10:40 Catheterized Urine Urine Culture - Final Klebsiella Pneumoniae Impressions: Abdomen/Pelvis CT 04/15/20 10:11 IMPRESSION: 1. Numerous fluid-filled dilated loops of jejunum in the left he miabdomen that abruptly taper to a normal caliber at a focal point of the transition in the mid abdomen (image 62 of series 102). These findings are concerning for a mechanical bowel obstruction. 2. Fat-containing ventral hernia associated with stranding of the herniated fat. KUB X-Ray 04/16/20 00:00 IMPRESSION: Re- demonstration of multiple gas distended loops of small bowel within the hemiabdomen. The thymic is likewise appears gas-filled on today's examination. Interval removal of the previously demonstrated enteric tube. Chest X-Ray 04/17/20 00:00 IMPRESSION: NG tube tip in the body of the stomach. Abdomen X-Ray 04/17/20 07:00 IMPRESSION: Re- demonstration of multiple gas distended loops of small bowel within the left hemiabdomen. Interval placement of an enteric tube demonstrating appropriate positioning. Diminished gastric gas. Assessment & Plan - Diagnosis (1) Small bowel obstruction Is this a current diagnosis for this admission?: Yes Plan: Pending repeat abdominal films today. She did pass some gas yesterday. However if abdominal films have not demonstrated any improvement, I will plan an exploratory laparotomy today for bowel obstruction. However patient has developed renal failure, her intravascular volume is low, she has developed tachycardia. She needs aggressive resuscitation and correction of her hypokalemia prior to any surgical procedure. I have discussed this matter with Dr. Melendez and have highly recommended transfer to the intensive care unit. I have ordered IV saline bolus - Time Anticipated Discharge Disposition: Home, Self Care Anticipated Discharge Timeframe: Week
[2020-04-18] MEDS: POTASSI CL 20 MEQ/50 ML RIDER 20 MEQ/50 ML RTUPB IV SCH ×4 (08:42→22:20)
[2020-04-18] MEDS ORDERED: ROCURONIUM BROMIDE INJ 50 MG/5 ML VIAL IV ONE (08:58)
[2020-04-18] MEDS ORDERED: NEOSTIGMINE METHYLSULFATE 10 MG/10 ML VIAL ONE (08:58)
[2020-04-18] MEDS ORDERED: PHENYLEPHRINE HCL INJ/PF 10 MG/1 ML SDV ONE (08:58)
[2020-04-18] MEDS ORDERED: SUCCINYLCHOLINE CHLORIDE INJ 200 MG/10 ML VIAL ONE (08:58)
[2020-04-18] MEDS ORDERED: NORMAL SALINE 1000 ML 1,000 ML IV ONE ×4 (09:00→18:30)
--- NOTE | 2020-04-18 09:19 | RADIOLOGY REPORT (SQ) ---
EXAM DESCRIPTION: KUB/ABDOMEN (SINGLE VIEW) IMAGES COMPLETED DATE/TIME: 04/18/2020 8:39 am REASON FOR STUDY: sbo COMPARISON: Previous day. NUMBER OF VIEWS: One view. TECHNIQUE: Supine radiographic image of the abdomen acquired. LIMITATIONS: None. FINDINGS: Nasogastric tube in the stomach. Persistent dilated loops of small bowel mid abdomen and left lower quadrant. Gas and fecal material within nondilated descending colon. IMPRESSION: Ileus or partial small bowel obstruction. No significant change. TECHNICAL DOCUMENTATION: JOB ID: [id number] 2010 [employer]- All Rights Reserved Reading location - IP/workstation name: [email or web address]
--- NOTE | 2020-04-18 11:12 | PDOC PROGRESS REPORT ---
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 Apparently she ate last night but is not had anything to eat since. She apparently had a loose [place] colored stool yesterday. She had nausea vomiting and reported altered mental status. She was sent to the ER for evaluation. She was found to have a distended abdomen. CT abdomen pelvis showed dilated small bowel loops in the left abdomen with a transition point in the mid abdomen. Surgery was consulted and recommended conservative management. She initially did not want an NG tube but eventually consented. 04/16/20-No adverse events overnight. We gave her some ice chips and told her to only take a few at a time but apparently she was able to get her hands on a large 1 L cupful of ice chips and she managed to suck the whole thing in and she wound up vomiting. Her ice chips have been subsequently removed. Her potassium was low this morning and was replaced through the IV. Her blood sugars have been very high and so her insulin has been adjusted. 04/17/2020-patient is expressing desire to drink water. NG tube is still actively trying. Abdomen with no bowel sounds. On gentle palpation patient is complaining of generalized abdominal pain. KUB done this morning indicated of multiple gas distended loops of small bowel in the left hemiabdomen. Surgical team on board. 04/18/2020-Dr. Doe spoke to me about the patient condition and I requested me to transfer the patient to ICU. Patient was accepted to ICU. Patient may go to surgery this evening. Patient developed MILE latest creatinine is 2.9. Patient blood pressures on the softer side. Lot of drainage seen in the nasogastric tube and in the container. Presently on IV fluids at 125 cc/h. Patient rece ived 1 L of normal saline bolus. Serum potassium is 3.0 to give 40 mg of IV potassium. Reason For Visit: SBO Physical Exam Vital Signs: Temp Pulse Resp BP Pulse Ox 97.8 F 101 H 18 129/55 H 94 04/18/20 08:13 04/18/20 08:13 04/18/20 08:13 04/18/20 08:13 04/18/20 08:13 Intake & Output 04/17/20 04/18/20 04/19/20 06:59 06:59 06:59 Intake Total 1935 1150 50 Output Total 3000 2100 Balance -1065 -950 50 Weight 83 kg 83 kg General appearance: PRESENT: cooperative, mild distress, well-developed Head exam: PRESENT: atraumatic Eye exam: PRESENT: conjunctiva pale, PERRLA Mouth exam: PRESENT: dry mucosa Teeth exam: PRESENT: poor dentation Throat exam: PRESENT: other - Nasogastric tube in place. Neck exam: ABSENT: carotid bruit, JVD, lymphadenopathy, thyromegaly Respiratory exam: PRESENT: decreased breath sounds Cardiovascular exam: PRESENT: RRR. ABSENT: diastolic murmur, rubs, systolic murmur GI/Abdominal exam: PRESENT: normal bowel sounds, soft. ABSENT: distended, guarding, mass, organolmegaly, rebound, tenderness Rectal exam: PRESENT: deferred Extremities exam: PRESENT: full ROM. ABSENT: calf tenderness, clubbing, pedal edema Neurological exam: PRESENT: alert, awake, oriented to person, oriented to place, oriented to time, oriented to situation, CN II-XII grossly intact. ABSENT: motor sensory deficit Psychiatric exam: PRESENT: appropriate affect, normal mood. ABSENT: homicidal ideation, suicidal ideation Results Laboratory Results: 04/18/20 06:24 04/18/20 06:24 04/18/20 04/18/20 06:24 06:24 WBC 11.0 H RBC 4.95 Hgb 13.8 Hct 41.0 MCV 83 MCH 27.8 MCHC 33.6 RDW 15.7 H Plt Count 316 Sodium 143.6 Potassium 3.0 L* Chloride 81 L Carbon Dioxide 42 H* Anion Gap 21 H BUN 83 H D Creatinine 2.91 H Est GFR ( Amer) 20 L Glucose 263 H Calcium 10.3 H Total Bilirubin 0.7 AST 18 Alkaline Phosphatase 201 H Total Protein 8.3 H Albumin 4.2 04/15/20 10:40 Catheterized Urine Urine Culture - Final Klebsiella Pneumoniae Impressions: Abdomen/Pelvis CT 04/15/20 10:11 IMPRESSION: 1. Numerous fluid-filled dilated loops of jejunum in the left hemiabdomen that abruptly taper to a normal caliber at a focal point of the transition in the mid abdomen (image 62 of series 102). These findings are concerning for a mechanical bowel obstruction. 2. Fat-containing ventral hernia associated with stranding of the herniated fat. Chest X-Ray 04/17/20 00:00 IMPRESSION: NG tube tip in the body of the stomach. Abdomen X-Ray 04/17/20 07:00 IMPRESSION: Re- demonstration of multiple gas distended loops of small bowel within the left hemiabdomen. Interval placement of an enteric tube demonstrating appropriate positioning. Diminished gastric gas. KUB X-Ray 04/18/20 06:34 IMPRESSION: Ileus or partial small bowel obstruction. No significant change. Assessment and Plan - Diagnosis (1) Bowel obstruction Qualifiers: Intestinal obstruction type: obstruction due to adhesions Intestinal obstruction extent: complete Qualified Code(s): K56.52 - Intestinal adhesions [bands] with complete obstruction Is this a current diagnosis for this admission?: Yes Plan: 04/17/2020-patient admitted for small bowel obstruction. NG tube in place actively draining. KUB indicates multiple gas distended loops of small bowel in the left hemiabdomen. Surgical team is following the patient. 04/18/20-patient admitted with small bowel obstruction. Surgical team is planning to take her to the OR today. Patient is going to ICU for further management. (2) Chronic venous stasis dermatitis of both lower extremities Is this a current diagnosis for this admission?: No (3) Diabetes Qualifiers: Diabetes mellitus type: type 2 Diabetes mellitus termination clerk insulin use: without termination clerk use Diabetes mellitus complication status: with circulatory complication Diabetes mellitus complication detail: with peripheral angiopathy without gangrene Qualified Code(s): E11.51 - Type 2 diabetes mellitus with diabetic peripheral angiopathy without gangrene Is this a current diagnosis for this admission?: Yes Plan: 04/17/2020-patient is n.p.o. at this time. Latest blood sugar is 325. Continue insulin sliding scale. 04/18/2020-latest blood sugar is 203. On insulin sliding scale every 6 hours. Patient is n.p.o. at this time. (4) Morbid obesity Is this a current diagnosis for this admission?: No Plan: 04/17/2020-patient BMI is more than 34. Diet exercise weight loss lifestyle modifications discussed with the patient. (5) Nausea and vomiting Qualifiers: Vomiting type: bilious vomiting Qualified Code(s): R11.14 - Bilious vomiting Is this a current diagnosis for this admission?: Yes Plan: 04/17/2020-patient came in with complaints of nausea and vomitings he has NG tube in place now. (6) GERD (gastroesophageal reflux disease) Qualifiers: Esophagitis presence: without esophagitis Qualified Code(s): K21.9 - Gastro-esophageal reflux disease without esophagitis Is this a current diagnosis for this admission?: Yes (7) UTI (urinary tract infection) Is this a current diagnosis for this admission?: Yes Plan: Urine culture came back positive for Klebsiella. To continue IV Rocephin at th is time. Most likely UTI present on admission. (8) MILE (acute kidney injury) Is this a current diagnosis for this admission?: Yes Plan: 04/18/2020-serum creatinine today is 2.9. Yesterday's creatinine is 1.22. MILE most likely secondary to prerenal causes. Given 1 L of normal saline bolus presently on normal saline at 125 cc/h. Patient is going to intensive care for further management. (9) Hypokalemia Is this a current diagnosis for this admission?: Yes Plan: 04/18/2020-serum potassium is 3.0. Given 40 mg of IV potassium. To repeat the labs this evening. - Plan Summary Summary: Continue n.p.o. with NG tube suction. She has lost her ice chip privileges. If she gets ice chips again, she cannot be allowed to have very much at a time and has to be spaced out. Otherwise she will take as much as she can as fast as she can and she will throw up again. Surgery service continues to follow. Hoping to avoid surgery. - Time Anticipated Discharge Disposition: [facility] Facility Anticipated Discharge Timeframe: within 72 hours
[2020-04-18] MEDS: LEVOFLOXACIN 500 MG/D5W RTU 500 MG/100 ML RTUPB IV SCH (11:29)
--- NOTE | 2020-04-18 12:21 | PDOC PROGRESS REPORT ---
Subjective Date:: 04/18/20 Reason For Visit: SBO Physical Exam Vital Signs: Temp Pulse Resp BP Pulse Ox 97.8 F 101 H 18 129/55 H 94 04/18/20 10:00 04/18/20 08:13 04/18/20 08:13 04/18/20 08:13 04/18/20 08:13 Intake & Output 04/17/20 04/18/20 04/19/20 06:59 06:59 06:59 Intake Total 1935 1150 50 Output Total 3000 2100 Balance -1065 -950 50 Weight 83 kg 83 kg Results Laboratory Results: 04/18/20 06:24 04/18/20 06:24 04/18/20 04/18/20 06:24 06:24 WBC 11.0 H RBC 4.95 Hgb 13.8 Hct 41.0 MCV 83 MCH 27.8 MCHC 33.6 RDW 15.7 H Plt Count 316 Sodium 143.6 Potassium 3.0 L* Chloride 81 L Carbon Dioxide 42 H* Anion Gap 21 H BUN 83 H D Creatinine 2.91 H Est GFR ( Amer) 20 L Glucose 263 H Calcium 10.3 H Total Bilirubin 0.7 AST 18 Alkaline Phosphatase 201 H Total Protein 8.3 H Albumin 4.2 04/15/20 10:40 Catheterized Urine Urine Culture - Final Klebsiella Pneumoniae Impressions: Abdomen/Pelvis CT 04/15/20 10:11 IMPRESSION: 1. Numerous fluid-filled dilated loops of jejunum in the left hemiabdomen that abruptly taper to a normal caliber at a focal point of the transition in the mid abdomen (image 62 of series 102). These findings are concerning for a mechanical bowel obstruction. 2. Fat-containing ventral hernia associated with stranding of the herniated fat. Chest X-Ray 04/17/20 00:00 IMPRESSION: NG tube tip in the body of the stomach. Abdomen X-Ray 04/17/20 07:00 IMPRESSION: Re- demonstration of multiple gas distended loops of small bowel within the left hemiabdomen. Interval placement of an enteric tube demonstrating appropriate positioning. Diminished gastric gas. KUB X-Ray 04/18/20 06:34 IMPRESSION: Ileus or partial small bowel obstruction. No significant change. Assessment & Plan - Diagnosis (1) Small bowel obstruction Is this a current diagnosis for this admission?: Yes Plan: Pending transfer to the ICU for fluid resuscitation and correction of electrolytes prior to surgery. Patient with worsened small bowel dilation on her abdominal x-rays this morning. I have reviewed all of her films with radiology and the films are all highly suspicious for a mechanical small bowel obstruction. I have had a conversation with the patient who is much more alert now after receiving her fluid bolus. I have explained to her my recommendation for an exploratory laparotomy with possible bowel resection, possible lysis of adhesions, possible hernia repair if the hernia is involved with the acute disease process. I have discussed with her risk of bleeding, infection, bowel injury, hernia recurrence especially in this setting where I would try to avoid mesh if at all possible to avoid risk of mesh infection, cardiopulmonary risks, as well as a small possibility that she has an ileus and not a mechanical bowel obstruction. She understands and agrees to proceed. I have also discussed all of these concerns and surgery plan with the patient's who also agrees to proceed. I will give her another fluid bolus now pending transfer to the ICU. - Time Anticipated Discharge Disposition: Home, Self Care Anticipated Discharge Timeframe: week
[2020-04-18 13:55] LABS: BLOOD UREA NITROGEN 86 mg/dL (7-20); CALCIUM 9.6 mg/dL (8.4-10.2); CHLORIDE 85 mmol/L (98-107); GLUCOSE 112 mg/dL (75-110); POTASSIUM 3.3 mmol/L (3.6-5.0)
[2020-04-18 14:06] LABS: ANION GAP 15 (5-19)
[2020-04-18 14:08] LABS: CARBON DIOXIDE 45 mmol/L (22-30)
[2020-04-18] MEDS ORDERED: BUPIVACAINE HCL 0.25 % INJ/PF (2.5 MG/1 ML) 30 ML VIAL ONE ×2 (14:50→19:11)
[2020-04-18] MEDS ORDERED: EPHEDRINE SULFATE INJ 50 MG/1 ML AMPULE ONE ×2 (15:09→19:04)
[2020-04-18] MEDS ORDERED: PROPOFOL INJ 200 MG/20 ML VIAL IV ONE ×2 (15:09→19:04)
[2020-04-18] MEDS ORDERED: MIDAZOLAM 2 MG/2 ML INJ ONE ×2 (15:09→19:04)
[2020-04-18] MEDS ORDERED: ONDANSETRON HCL INJ/PF 4 MG/2 ML SDV ONE ×2 (15:09→19:04)
[2020-04-18] MEDS ORDERED: FENTANYL CITRATE INJ/PF 100 MCG/2 ML AMPUL ONE ×2 (15:10→19:04)
[2020-04-18] MEDS ORDERED: LIDOCAINE 2% INJ-PF (100 MG/5 ML) SYRINGE ONE ×2 (15:47→16:00)
[2020-04-18] MEDS ORDERED: MORPHINE SULFATE 10 MG/ML INJ ONE (16:03)
[2020-04-18] MEDS ORDERED: NORMAL SALINE INJ/PF 0.9% 10 ML SDV IV PRN (16:55)
--- NOTE | 2020-04-18 17:14 | PDOC PROGRESS REPORT ---
Subjective Date:: 04/18/20 Subjective:: Weak and thirsty. Reason For Visit: SBO Physical Exam Vital Signs: Temp Pulse Resp BP Pulse Ox 98.1 F 104 H 17 104/57 L 95 04/18/20 14:56 04/18/20 14:56 04/18/20 14:56 04/18/20 14:56 04/18/20 14:56 Intake & Output 04/17/20 04/18/20 04/19/20 06:59 06:59 06:59 Intake Total 1935 1150 168 Output Total 3000 2100 1750 Balance -9449 -713 -4750 Weight 83 kg 83 kg General appearance: PRESENT: cooperative Respiratory exam: PRESENT: clear to auscultation lubna Cardiovascular exam: PRESENT: RRR, other - CVP is 4 GI/Abdominal exam: PRESENT: other - Soft, distended, mild tenderness in the lower abdomen without peritoneal signs. Skin exam: PRESENT: warm - With less than 2-second capillary refill. Results Laboratory Results: 04/18/20 06:24 04/18/20 13:21 04/18/20 04/18/20 04/18/20 06:24 06:24 13:21 WBC 11.0 H RBC 4.95 Hgb 13.8 Hct 41.0 MCV 83 MCH 27.8 MCHC 33.6 RDW 15.7 H Plt Count 316 Sodium 143.6 144.8 Potassium 3.0 L* 3.3 L Chloride 81 L 85 L Carbon Dioxide 42 H* 45 H* Anion Gap 21 H 15 BUN 83 H D 86 H Creatinine 2.91 H 2.65 H Est GFR ( Amer) 20 L 22 L Glucose 263 H 112 H Calcium 10.3 H 9.6 Total Bilirubin 0.7 AST 18 Alkaline Phosphatase 201 H Total Protein 8.3 H Albumin 4.2 Impressions: Abdomen/Pelvis CT 04/15/20 10:11 IMPRESSION: 1. Numerous fluid-filled dilated loops of jejunum in the left hemiabdomen that abruptly taper to a normal caliber at a focal point of the transition in the mid abdomen (image 62 of series 102). These findings are concerning for a mechanical bowel obstruction. 2. Fat-containing ventral hernia associated with stranding of the herniated fat. Abdomen X-Ray 04/17/20 07:00 IMPRESSION: Re- demonstration of multiple gas distended loops of small bowel within the left hemiabdomen. Interval placement of an enteric tube demonst rating appropriate positioning. Diminished gastric gas. KUB X-Ray 04/18/20 06:34 IMPRESSION: Ileus or partial small bowel obstruction. No significant change. Assessment & Plan - Diagnosis (1) Small bowel obstruction Is this a current diagnosis for this admission?: Yes Plan: CVP is 4 status post almost 3 L of IV fluid boluses. Will write for another li ter of normal saline IV bolus. Her last Chem-7 still demonstrated hypokalemia. We will continue to supplement her potassium. After the next fluid bolus and potassium supplementation will repeat a Chem-7 and reevaluate for fitness to take to surgery. - Time Anticipated Discharge Disposition: [facility] Facility Anticipated Discharge Timeframe: week
[2020-04-18 17:55] LABS: ARTERIAL BLOOD BASE EXCESS 19.5 mmol/L; ARTERIAL BLOOD H2CO3 1.92 mmol/L (1.05-1.35); ARTERIAL BLOOD HCO3 46.7 mmol/L (20-24); ARTERIAL BLOOD O2 SATURATION 98.8 % (94-98); ARTERIAL BLOOD PCO2 63.7 mmHg (35-45); ARTERIAL BLOOD PH 7.48 (7.35-7.45); ARTERIAL BLOOD PO2 138.8 mmHg (80-100); ARTERIAL BLOOD TOTAL CO2 48.7 mmol/L (21-25)
[2020-04-18 17:56] LABS: ARTERIAL BLOOD FIO2 ROOM AIR
--- NOTE | 2020-04-18 17:58 | RADIOLOGY REPORT (SQ) ---
EXAM DESCRIPTION: CHEST SINGLE VIEW IMAGES COMPLETED DATE/TIME: 04/18/2020 4:56 pm REASON FOR STUDY: cvp placement COMPARISON: 04/17/2020 EXAM PARAMETERS: NUMBER OF VIEWS: One view. TECHNIQUE: Single frontal radiographic view of the chest acquired. RADIATION DOSE: NA LIMITATIONS: None. FINDINGS: LUNGS AND PLEURA: No opacities, masses or pneumothorax. No pleural effusion. MEDIASTINUM AND HILAR STRUCTURES: No masses. Contour normal. HEART AND VASCULAR STRUCTURES: Heart normal in size. Normal vasculature. BONES: No acute findings. HARDWARE: Left internal jugular catheter has its tip in the superior vena cava. An NG tube extends i nto the stomach. OTHER: No other significant finding. IMPRESSION: Left IJV catheter as described. No acute pulmonary findings. TECHNICAL DOCUMENTATION: JOB ID: [id number] [employer]- All Rights Reserved Reading location - IP/workstation name: [email or web address]
--- NOTE | 2020-04-18 18:15 | CRITICAL CARE ADMISSION REPORT ---
HPI Date:: 04/18/20 Time:: 16:00 Reason for ICU Reason:: Hypotension, acute renal failure, sbo Admission Date/Time & PCP: Admission Date/Time: 04/15/20 15:24 Primary Care Provider: RICK MARION MD HPI: BA ARIAS is a 64 year old female with multiple medical problems and a history of prior abdominal surgery [facility], nausea, and vomiting. Apparently she ate last night but is not had anything to eat since. She apparently had a loose bron[place] col ored stool yesterday. She had nausea vomiting and reported altered mental status. She was sent to the ER for evaluation. She was found to have a distended abdomen. CT abdomen pelvis showed dilated small bowel loops in the left abdomen with a transition point in the mid abdomen. Surgery was consulted and recommended conservative management. She initially did not want an NG tube but eventually consented. 04/18 I was asked by Kenia Lr, the surgeon to see this patient in consultationand roula ow with him. He has been following thepatient since admissionfor a suspected SBO. The opatient had had a CT scan on 04/15 showing dilated loops of jejeunum in theleft hemiabdomen that abruptyl tapered to afocal point in the midabdpomen The patient was apparently poorly alert earlier tofdday. She has developed a significant contraction alkalosis and wrsening MILE. Her creatinine had risen from normal range to 2.91 this AM. She has mopved to the ICU to be flusi resuscitated and minitored inprepar ationfor eventual surgery. She is hypokalemic and getting KCL replacement. Her bP has been nrmal much of the day. Her urine output has tsailed off in theafternoon despite 3 liters of IV fluid. A cvp was placed and her CVP was 4 at abut 5 PM. Past Medical History Cardiac Medical History: Reports: Hypertension Denies: Atrial Fibrillation, Congestive Heart Failure, Coronary Artery Disease, DVT, Myocardial Infarction, Hyperlipidema, Pulmonary Embolism Pulmonary Medical History: Reports: Asthma, Pneumonia, Sleep Apnea - Noncompliant with home CPAP. Denies: Chronic Obstructive Pulmonary Disease (COPD) Neurological Medical History: Denies: Seizures Endocrine Medical History: Reports: Diabetes Mellitus Type 1, Diabetes Mellitus Type 2, Hypothyroidism Denies: Hyperthyroidism GI Medical History: Reports: Gastroesophageal Reflux Disease Denies: Cirrhosis, Hepatitis Musculoskeltal Medical History: Reports: Arthritis Psychiatric Medical History: Denies: Depression Past Surgical History Past Surgical History: Reports: Cardiac Catheterization - -6 years ago, was reported to be negative for CAD, Cholecystectomy, Hysterectomy Social/Family History - Social History Lives with: Detention Smoking Status: Never Smoker Frequency of Alcohol Use: None Hx Recreational Drug Use: No Drugs: None Hx Prescription Drug Abuse: No - Medication/Allergies Home Medications: Insulin Glargine,Hum.rec.anlog [Lantus Solostar] 20 units SUBCUT QHS 03/05/17 Multivitamin [Daily Multiple Vitamin] 1 tab PO DAILY 03/05/17 Acetaminophen [Tylenol 325 mg Tablet] 975 mg PO TIDP PRN 04/15/20 Ibuprofen 600 mg PO Q6HP PRN 04/15/20 Insulin Lispro [Humalog] 0 unit SQ .SLIDING SCALE 04/15/20 Levothyroxine Sodium 175 mcg PO QAM 04/15/20 Losartan Potassium [Cozaar 25 mg Tablet] 75 mg PO QAM 04/15/20 Magnesium Oxide [Mag-Ox 400 mg Tablet] 400 mg PO BID 04/15/20 Melatonin [Melatonin 3 mg Tablet] 9 mg PO QHS 04/15/20 Methocarbamol [Robaxin 500 mg Tablet] 500 mg PO Q6 04/15/20 Ondansetron HCl [Zofran 8 mg Tablet] 4 mg PO Q8HP PRN 04/15/20 Oxycodone HCl [Oxy-Ir 5 mg Tablet] 10 mg PO Q12 04/15/20 Oxycodone Myristate [Xtampza ER] 27 mg PO BID 04/15/20 Pantoprazole Sodium [Protonix [address] Tablet] 40 mg PO BID 04/15/20 Polyethylene Glycol 3350 [Glycolax] 17 gm PO DAILY 04/15/20 Simethicone 125 mg PO BID 04/15/20 Trazodone HCl [Desyrel 50 mg Tablet] 50 mg PO QHS 04/15/20 Allergies/Adverse Reactions: Penicillins Allergy (Severe, Verified 04/15/20 08:58) rash Sulfa (Sulfonamide Antibiotics) Allergy (Intermediate, Verified 04/15/20 08:58) Swelling of Throat, morphine [Morphine] Adverse Reaction (Verified 04/15/20 08:58) shaking, "brain freezes" Physical Exam Vital Signs: Temp Pulse Resp BP Pulse Ox 99.0 F 99 18 100/83 100 04/18/20 16:00 04/18/20 16:00 04/18/20 16:00 04/18/20 16:00 04/18/20 16:00 Intake & Output 04/17/20 04/18/20 04/19/20 06:59 06:59 06:59 Intake Total 1935 1150 2229 Output Total 3000 2100 1750 Balance -1065 -950 479 Weight 83 kg 83 kg Weight/Height Weight 83 kg Height 5 ft 1 in Laboratory/Radiographs Laboratory Results: 04/18/20 06:24 04/18/20 13:21 04/18/20 04/18/20 04/18/20 06:24 06:24 13:21 WBC 11.0 H RBC 4.95 Hgb 13.8 Hct 41.0 MCV 83 MCH 27.8 MCHC 33.6 RDW 15.7 H Plt Count 316 Carbonic Acid HCO3/H2CO3 Ratio ABG pH ABG pCO2 ABG pO2 ABG HCO3 ABG O2 Saturation ABG Base Excess FiO2 Sodium 143.6 144.8 Potassium 3.0 L* 3.3 L Chloride 81 L 85 L Carbon Dioxide 42 H* 45 H* Anion Gap 21 H 15 BUN 83 H D 86 H Creatinine 2.91 H 2.65 H Est GFR ( Amer) 20 L 22 L Glucose 263 H 112 H Calcium 10.3 H 9.6 Total Bilirubin 0.7 AST 18 Alkaline Phosphatase 201 H Total Protein 8.3 H Albumin 4.2 04/18/20 17:25 WBC RBC Hgb Hct MCV MCH MCHC RDW Plt Count Carbonic Acid 1.92 H HCO3/H2CO3 Ratio 24:1 ABG pH 7.48 H ABG pCO2 63.7 H ABG pO2 138.8 H ABG HCO3 46.7 H ABG O2 Saturation 98.8 H ABG Base Excess 19.5 FiO2 ROOM AIR Sodium Potassium Chloride Carbon Dioxide Anion Gap BUN Creatinine Est GFR ( Amer) Glucose Calcium Total Bilirubin AST Alkaline Phosphatase Total Protein Albumin Impressions: Abdomen/Pelvis CT 04/15/20 10:11 IMPRESSION: 1. Numerous fluid-filled dilated loops of jejunum in the left hemiabdomen that abruptly taper to a normal caliber at a focal point of the transition in the mid abdomen (image 62 of series 102). These findings are concerning for a mechanical bowel obstruction. 2. Fat-containing ventral hernia associated with stranding of the herniated fat. Abdomen X-Ray 04/17/20 07:00 IMPRESSION: Re- demonstration of multiple gas distended loops of small bowel within the left hemiabdomen. Interval placement of an enteric tube demonstrating appropriate positioning. Diminished gastric gas. KUB X-Ray 04/18/20 06:34 IMPRESSION: Ileus or partial small bowel obstruction. No significant change. Critical Time Critical Time (minutes): 60 -: The care of a critically ill patient is dynamic. This note represents a static moment in the admission process. Orders and treatments may be given simul taneously and urgently, and time is not delivery representative of the treatment process. This patient requires Critical Care secondary to life threatening organ or limb dysfunction. Without Critical Care services, the patient is at risk for increased mortality and morbidity.
[2020-04-18] MEDS ORDERED: LIDOCAINE 2% INJ-PF (100 MG/5 ML) SYRINGE IV ONE (18:30)
[2020-04-18 18:34] LABS: BLOOD UREA NITROGEN 76 mg/dL (7-20); CALCIUM 8.4 mg/dL (8.4-10.2); CHLORIDE 91 mmol/L (98-107); GLUCOSE 122 mg/dL (75-110); POTASSIUM 3.3 mmol/L (3.6-5.0)
[2020-04-18 18:48] LABS: ANION GAP 11 (5-19)
[2020-04-18 18:50] LABS: CARBON DIOXIDE 47 mmol/L (22-30)
[2020-04-18] MEDS ORDERED: MORPHINE SULFATE 10 MG/ML INJ IV ONE (19:00)
--- NOTE | 2020-04-18 19:02 | PDOC PROGRESS REPORT ---
Subjective Date:: 04/18/20 Subjective:: Much more alert. Still very thirsty. Reason For Visit: SBO Physical Exam Vital Signs: Temp Pulse Resp BP Pulse Ox 99.0 F 97 18 104/89 H 97 04/18/20 16:00 04/18/20 18:25 04/18/20 18:00 04/18/20 18:25 04/18/20 18:00 Intake & Output 04/17/20 04/18/20 04/19/20 06:59 06:59 06:59 Intake Total 1935 1150 3279 Output Total 3000 2100 1760 Balance -1065 -950 1519 Weight 83 kg 83 kg General appearance: PRESENT: no acute distress, cooperative Respiratory exam: PRESENT: clear to auscultation lubna Cardiovascular exam: PRESENT: RRR Vascular exam: PRESENT: normal capillary refill GI/Abdominal exam: PRESENT: other - Distended. Mild tenderness in the lower abdomen without peritoneal signs. Neurological exam: PRESENT: alert, awake Psychiatric exam: PRESENT: appropriate affect Skin exam: PRESENT: other - slightly cool Results Laboratory Results: 04/18/20 06:24 04/18/20 18:00 04/18/20 04/18/20 04/18/20 06:24 06:24 13:21 WBC 11.0 H RBC 4.95 Hgb 13.8 Hct 41.0 MCV 83 MCH 27.8 MCHC 33.6 RDW 15.7 H Plt Count 316 Carbonic Acid HCO3/H2CO3 Ratio ABG pH ABG pCO2 ABG pO2 ABG HCO3 ABG O2 Saturation ABG Base Excess FiO2 Sodium 143.6 144.8 Potassium 3.0 L* 3.3 L Chloride 81 L 85 L Carbon Dioxide 42 H* 45 H* Anion Gap 21 H 15 BUN 83 H D 86 H Creatinine 2.91 H 2.65 H Est GFR ( Amer) 20 L 22 L Glucose 263 H 112 H Calcium 10.3 H 9.6 Total Bilirubin 0.7 AST 18 Alkaline Phosphatase 201 H Total Protein 8.3 H Albumin 4.2 04/18/20 04/18/20 17:25 18:00 WBC RBC Hgb Hct MCV MCH MCHC RDW Plt Count Carbonic Acid 1.92 H HCO3/H2CO3 Ratio 24:1 ABG pH 7.48 H ABG pCO2 63.7 H ABG pO2 138.8 H ABG HCO3 46.7 H ABG O2 Saturation 98.8 H ABG Base Excess 19.5 FiO2 ROOM AIR Sodium 148.8 H Potassium 3.3 L Chloride 91 L Carbon Dioxide 47 H* Anion Gap 11 BUN 76 H Creatinine 2.47 H Est GFR ( Amer) 24 L Glucose 122 H Calcium 8.4 Total Bilirubin AST Alkaline Phosphatase Total Protein Albumin Impressions: Abdomen/Pelvis CT 04/15/20 10:11 IMPRESSION: 1. Numerous fluid-filled dilated loops of jejunum in the left hemiabdomen that abruptly taper to a normal caliber at a focal point of the transition in the mid abdomen (image 62 of series 102). These findings are concerning for a mechanical bowel obstruction. 2. Fat-containing ventral hernia associated with stranding of the herniated fat. Abdomen X-Ray 04/17/20 07:00 IMPRESSION: Re- demonstration of multiple gas distended loops of small bowel within the left hemiabdomen. Interval placement of an enteric tube demonstrating appropriate positioning. Diminished gastric gas. Chest X-Ray 04/18/20 00:00 IMPRESSION: Left IJV catheter as described. No acute pulmonary findings. KUB X-Ray 04/18/20 06:34 IMPRESSION: Ileus or partial small bowel obstruction. No significant change. Assessment & Plan - Diagnosis (1) Small bowel obstruction Is this a current diagnosis for this admission?: Yes Plan: Status post multiple fluid boluses, her CVP has come up to 11 now. Her chemistry has improved. We will proceed with surgery. - Time Anticipated Discharge Disposition: [facility] Facility Anticipated Discharge Timeframe: week
[2020-04-18] MEDS ORDERED: SUGAMMADEX SODIUM 200 MG/2 ML SDV IV ONE (20:59)
[2020-04-18] MEDS ORDERED: FENTANYL CITRATE INJ/PF 100 MCG/2 ML AMPUL IV PRN ×3 (21:01)
[2020-04-18] MEDS ORDERED: ONDANSETRON HCL INJ/PF 4 MG/2 ML SDV IV PRN ×2 (21:01→21:46)
[2020-04-18] MEDS ORDERED: DIPHENHYDRAMINE HCL 50 MG/ML VIAL IV PRN (21:01)
[2020-04-18] MEDS ORDERED: PROMETHAZINE HCL INJ 25 MG/1 ML VIAL IV PRN ×2 (21:01)
[2020-04-18] MEDS ORDERED: MEPERIDINE HCL/PF INJ 25 MG/1 ML DISP.SYRIN IV PRN (21:01)
--- NOTE | 2020-04-18 21:46 | Operative Report ---
Operative Report DATE OF SURGERY: 04/18/20 PREOPERATIVE DIAGNOSIS: Small bowel obstruction POSTOPERATIVE DIAGNOSIS: Small bowel obstruction due to internal hernia. Recurrent ventral hernia. OPERATION: Exploratory laparotomy with lysis of adhesions. Recurrent ventral hernia repair. Hernia defect measuring about 3 cm in size. SURGEON: NICK MARTIN ANESTHESIA: GA TISSUE REMOVED OR ALTERED: Hernia sac. COMPLICATIONS: None ESTIMATED BLOOD LOSS: Minimal INTRAOPERATIVE FINDINGS: Internal hernia caused by small bowel adhesion with a loop of bowel herniating through this internal hernia with resultant small bowel obstruction. Bowel all viable with no evidence of ischemia. Ventral hernia centered around the umbilical region measuring about 3 cm in size with incarcerated omentum. PROCEDURE: Informed consent was obtained. Patient was brought to the operating room and placed on the operating table in the supine position. After satisfactory induction of general anesthesia patient's abdomen was prepped and draped in usual sterile fashion. A midline incision was made centered around the umbilicus and dissection was carried down through the fascia and the peritoneal cavity was entered without difficulty. The peritoneal cavity was entered above the umbilicus and dissection was carried down distally where I encountered omentum that was incarcerated in a ventral hernia centered around the umbilicus. This omentum was reduced. Portion of the incarcerated omentum was excised. The hernia sac was excised. The fascial defect measured about 3 cm in size. This apparent recurrent ventral hernia did not however play a role in her bowel obstruction. There were no bowel incarceration in this area. After the fascia was cut inferiorly as well to obtain adequate surgical exposure, the small bowel was eviscerated. There were dilated proximal bowel and decompressed distal bowel. In running the bowel I reached a segment of adhesion causing an internal hernia with herniated bowel loop's through this internal hernia with resultant small bowel obstruction at this point. The adhesions were lysed and in doing so the internal hernia no longer existed and the bowel was freed. The bowel was then run from the ligament of Treitz down to the ileocecal junction and there were no other points of obstruction. The bowel was closely examined to make sure there were no bowel injury and there were none. The bowel appeared healthy with no evidence of ischemia. The small bowel was returned back into the peritoneal cavity and omentum was draped over the small bowel. The fascial edges were freshened around the recurrent ventral hernia site. The fascial edges came together well without tension. Sponge needle instrument counts were all correct. Hemostasis appeared excellent. The fascia was closed with running PDS suture and thus closing the ventral hernia defect in the fascial closure. The skin was closed with marina. Marcaine was injected at the operative site. Patient tolerated procedure well with no apparent complications and was taken to the recovery area in stable condition.
--- NOTE | 2020-04-18 22:59 | PDOC PROGRESS REPORT ---
Subjective Date:: 04/18/20 Subjective:: pain at the incision site. Reason For Visit: SBO Physical Exam Vital Signs: Temp Pulse Resp BP Pulse Ox 97.3 F 88 18 120/60 100 04/18/20 22:13 04/18/20 22:13 04/18/20 22:13 04/18/20 22:13 04/18/20 22:13 Intake & Output 04/17/20 04/18/20 04/19/20 06:59 06:59 06:59 Intake Total 1935 1150 3779 Output Total 3000 2100 2360 Balance -1065 -950 1419 Weight 83 kg 83 kg General appearance: PRESENT: no acute distress, cooperative Respiratory exam: PRESENT: clear to auscultation lubna Cardiovascular exam: PRESENT: RRR GI/Abdominal exam: PRESENT: other - Soft, moderately distended, appropriate tenderness. Skin exam: PRESENT: warm Results Laboratory Results: 04/18/20 06:24 04/18/20 18:00 04/18/20 04/18/20 04/18/20 06:24 06:24 13:21 WBC 11.0 H RBC 4.95 Hgb 13.8 Hct 41.0 MCV 83 MCH 27.8 MCHC 33.6 RDW 15.7 H Plt Count 316 Carbonic Acid HCO3/H2CO3 Ratio ABG pH ABG pCO2 ABG pO2 ABG HCO3 ABG O2 Saturation ABG Base Excess FiO2 Sodium 143.6 144.8 Potassium 3.0 L* 3.3 L Chloride 81 L 85 L Carbon Dioxide 42 H* 45 H* Anion Gap 21 H 15 BUN 83 H D 86 H Creatinine 2.91 H 2.65 H Est GFR ( Amer) 20 L 22 L Glucose 263 H 112 H Calcium 10.3 H 9.6 Total Bilirubin 0.7 AST 18 Alkaline Phosphatase 201 H Total Protein 8.3 H Albumin 4.2 04/18/20 04/18/20 17:25 18:00 WBC RBC Hgb Hct MCV MCH MCHC RDW Plt Count Carbonic Acid 1.92 H HCO3/H2CO3 Ratio 24:1 ABG pH 7.48 H ABG pCO2 63.7 H ABG pO2 138.8 H ABG HCO3 46.7 H ABG O2 Saturation 98.8 H ABG Base Excess 19.5 FiO2 ROOM AIR Sodium 148.8 H Potassium 3.3 L Chloride 91 L Carbon Dioxide 47 H* Anion Gap 11 BUN 76 H Creatinine 2.47 H Est GFR ( Amer) 24 L Glucose 122 H Calcium 8.4 Total Bilirubin AST Alkaline Phosphatase Total Protein Albumin Impressions: Abdomen/Pelvis CT 04/15/20 10:11 IMPRESSION: 1. Numerous fluid-filled dilated loops of jejunum in the left hemiabdomen that abruptly taper to a normal caliber at a focal point of the transition in the mid abdomen (image 62 of series 102). These findings are concerning for a mechanical bowel obstruction. 2. Fat-containing ventral hernia associated with stranding of the herniated fat. Abdomen X-Ray 04/17/20 07:00 IMPRESSION: Re- demonstration of multiple gas distended loops of small bowel within the left hemiabdomen. Interval placement of an enteric tube demonstrating appropriate positioning. Diminished gastric gas. Chest X-Ray 04/18/20 00:00 IMPRESSION: Left IJV catheter as described. No acute pulmonary findings. KUB X-Ray 04/18/20 06:34 IMPRESSION: Ileus or partial small bowel obstruction. No significant change. Assessment & Plan - Diagnosis (1) Small bowel obstruction Is this a current diagnosis for this admission?: Yes Plan: Status post lysis of adhesions for internal herniation with resultant small bowel obstruction. Patient had also recurrent ventral hernia repair. She looks reasonably well postoperatively. May need additional fluids overnight depending on her CVP and pressures. We will administer morphine for pain. I have consulted nephrology for the morning to help us manage her acute renal insufficiency. - Time Anticipated Discharge Disposition: Intermediate Care Facility Anticipated Discharge Timeframe: week
[2020-04-18] MEDS: MORPHINE SULFATE 10 MG/ML INJ IV PRN (23:25)
[2020-04-18] MEDS: DEXTROSE 5%-1/2 NORMAL SALINE 1,000 ML IV PRN (23:26)
[2020-04-19] MEDS: LORAZEPAM INJ 2 MG/1 ML VIAL IV PRN ×4 (00:22→21:36)
[2020-04-19] MEDS: MORPHINE SULFATE 10 MG/ML INJ IV PRN ×7 (02:21→23:24)
[2020-04-19 04:02] LABS: ABSOLUTE LYMPHOCYTES (AUTO) 0.9 10^3/uL (0.5-4.7); ABSOLUTE MONOCYTES (AUTO) 0.7 10^3/uL (0.1-1.4); ABSOLUTE NEUT (AUTO) 8.3 10^3/uL (1.7-8.2); HEMATOCRIT 35.4 % (36.0-47.0); HEMOGLOBIN 11.8 g/dL (12.0-15.5); MEAN CORPUSCULAR HEMOGLOBIN 28.1 pg (27.0-33.4); MEAN CORPUSCULAR HGB CONC 33.2 g/dL (32.0-36.0); MEAN CORPUSCULAR VOLUME 85 fl (80-97); MONOCYTES % (AUTO) 7.2 % (3-13); PLATELET COUNT 240 10^3/uL (150-450); RED BLOOD COUNT 4.19 10^6/uL (3.72-5.28); RED CELL DISTRIBUTION WIDTH 15.9 % (11.5-14.0); SEGMENTED NEUTROPHILS % (AUTO) 83.8 % (42-78); TOTAL CELLS COUNTED % (AUTO) 100 %; WHITE BLOOD COUNT 9.9 10^3/uL (4.0-10.5)
[2020-04-19 04:23] LABS: ALBUMIN 3.3 g/dL (3.5-5.0); ALKALINE PHOSPHATASE 143 U/L (38-126); ASPARTATE AMINO TRANSFERASE 20 U/L (14-36); BILIRUBIN,DIRECT 0.5 mg/dL (0.0-0.4); BILIRUBIN,TOTAL 0.8 mg/dL (0.2-1.3); BLOOD UREA NITROGEN 72 mg/dL (7-20); CALCIUM 8.4 mg/dL (8.4-10.2); CHLORIDE 88 mmol/L (98-107); GLUCOSE 266 mg/dL (75-110); POTASSIUM 3.1 mmol/L (3.6-5.0); TOTAL PROTEIN 6.5 g/dL (6.3-8.2)
[2020-04-19 04:37] LABS: ANION GAP 11 (5-19)
[2020-04-19 04:38] LABS: CARBON DIOXIDE 49 mmol/L (22-30)
[2020-04-19] MEDS: DEXTROSE 5%-1/2 NORMAL SALINE 1,000 ML IV PRN ×2 (05:06→13:46)
[2020-04-19] MEDS: ENALAPRILAT DIHYDRATE INJ/PF 1.25 MG/1 ML SDV IV SCH ×3 (05:10→18:14)
[2020-04-19] MEDS: INSULIN LISPRO 100 UNIT/ML 3 ML VIAL SUBCUT SCH ×5 (05:10→18:37)
[2020-04-19] MEDS: HEPARIN SOD (PORCINE) 5,000 UNIT/ML 1 ML VIAL SUBCUT SCH ×3 (05:10→21:36)
--- NOTE | 2020-04-19 08:51 | PDOC PROGRESS REPORT ---
Subjective Date:: 04/19/20 Subjective:: thirsty Reason For Visit: SBO Physical Exam Vital Signs: Temp Pulse Resp BP Pulse Ox 99.0 F 104 H 13 150/134 H 97 04/19/20 08:00 04/19/20 08:00 04/19/20 08:00 04/19/20 08:00 04/19/20 08:00 Intake & Output 04/18/20 04/19/20 04/20/20 06:59 06:59 06:59 Intake Total 1150 4996 Output Total 2100 4310 220 Balance -950 686 -220 Weight 83 kg 86.5 kg General appearance: PRESENT: no acute distress Head exam: PRESENT: normocephalic Ear exam: PRESENT: normal external ear exam Mouth exam: PRESENT: dry mucosa Teeth exam: PRESENT: poor dentation Neck exam: PRESENT: full ROM Respiratory exam: PRESENT: clear to auscultation lubna Cardiovascular exam: PRESENT: RRR Pulses: PRESENT: normal femoral pulses Vascular exam: PRESENT: normal capillary refill Breast: PRESENT: Normal GI/Abdominal exam: PRESENT: soft, other - wound dry Rectal exam: PRESENT: deferred Extremities exam: PRESENT: full ROM Musculoskeletal exam: PRESENT: full ROM Neurological exam: PRESENT: alert, awake, oriented to person Psychiatric exam: PRESENT: appropriate affect Skin exam: PRESENT: dry Results Laboratory Results: 04/19/20 03:45 04/19/20 03:45 04/18/20 04/18/20 04/18/20 13:21 17:25 18:00 WBC RBC Hgb Hct MCV MCH MCHC RDW Plt Count Seg Neutrophils % Carbonic Acid 1.92 H HCO3/H2CO3 Ratio 24:1 ABG pH 7.48 H ABG pCO2 63.7 H ABG pO2 138.8 H ABG HCO3 46.7 H ABG O2 Saturation 98.8 H ABG Base Excess 19.5 FiO2 ROOM AIR Sodium 144.8 148.8 H Potassium 3.3 L 3.3 L Chloride 85 L 91 L Carbon Dioxide 45 H* 47 H* Anion Gap 15 11 BUN 86 H 76 H Creatinine 2.65 H 2.47 H Est GFR ( Amer) 22 L 24 L Glucose 112 H 122 H Calcium 9.6 8.4 Magnesium Total Bilirubin AST Alkaline Phosphatase Total Protein Albumin 04/19/20 04/19/20 03:45 03:45 WBC 9.9 RBC 4.19 Hgb 11.8 L Hct 35.4 L MCV 85 MCH 28.1 MCHC 33.2 RDW 15.9 H Plt Count 240 Seg Neutrophils % 83.8 H Carbonic Acid HCO3/H2CO3 Ratio ABG pH ABG pCO2 ABG pO2 ABG HCO3 ABG O2 Saturation ABG Base Excess FiO2 Sodium 148.0 H Potassium 3.1 L Chloride 88 L Carbon Dioxide 49 H* Anion Gap 11 BUN 72 H Creatinine 1.94 H Est GFR ( Amer) 31 L Glucose 266 H Calcium 8.4 Magnesium 1.4 L Total Bilirubin 0.8 AST 20 Alkaline Phosphatase 143 H Total Protein 6.5 Albumin 3.3 L Impressions: Abdomen/Pelvis CT 04/15/20 10:11 IMPRESSION: 1. Numerous fluid-filled dilated loops of jejunum in the left hemiabdomen that abruptly taper to a normal caliber at a focal point of the transition in the mid abdomen (image 62 of series 102). These findings are concerning for a mechanical bowel obstruction. 2. Fat-containing ventral hernia associated with stranding of the herniated fat. Abdomen X-Ray 04/17/20 07:00 IMPRESSION: Re- demonstration of multiple gas distended loops of small bowel within the left hemiabdomen. Interval placement of an enteric tube demonstrating appropriate positioning. Diminished gastric gas. Chest X-Ray 04/18/20 00:00 IMPRESSION: Left IJV catheter as described. No acute pulmonary findings. KUB X-Ray 04/18/20 06:34 IMPRESSION: Ileus or partial small bowel obstruction. No significant change. Assessment & Plan - Time Anticipated Discharge Disposition: Half-Way Facility Anticipated Discharge Timeframe: unk - Plan Summary Plan Summary: s/p exploratory lap for ventral hernia and sbo doing bettter this am h/h stable creat decreasing plan- replace k+ cont ng suction out of bed
[2020-04-19] MEDS: LEVOFLOXACIN 500 MG/D5W RTU 500 MG/100 ML RTUPB IV SCH (10:20)
[2020-04-19] MEDS: POTASSI CL 20 MEQ/50 ML RIDER 20 MEQ/50 ML RTUPB IV SCH ×2 (10:21→10:55)
[2020-04-19] MEDS ORDERED: DEXTROSE 40% GEL 15 GM TUBE PO PRN ×2 (14:02)
[2020-04-19] MEDS ORDERED: GLUCAGON,HUMAN RECOMB 1 MG INJ IM PRN (14:02)
[2020-04-19] MEDS ORDERED: DEXTROSE 50%-WATER 25 GM/50 ML DISP.SYRIN IV PRN ×2 (14:02)
--- NOTE | 2020-04-19 14:05 | PDOC CRITICAL CARE PROG REPORT ---
General Date:: 04/19/20 ICU Day:: 2 Hospital Day:: 5 Resuscitation Status: Full Code Events in the past 12 to 24 Hours:: HPI: BA ARIAS is a 64 year old female with multiple medical problems and a history of prior abdominal surgery [facility] abdominal pain, nausea, and vomiting. Apparently she ate last night but is not had anything to eat since. She apparently had a loose bron[place] colored stool yesterday. She had nausea vomiting and reported altered mental status. She was sent to the ER for evaluation. She was found to have a distended abdomen. CT abdomen pelvis showed dilated small bowel loops in the left abdomen with a transition point in the mid abdomen. Surgery was consulted and recommended conservative management. She initially did not want an NG tube but eventually consented. 04/18 I was asked by Kenia Lr, the surgeon to see this patient in consultation and follow with him. He has been following the patient since admission for a suspected SBO. The patient had had a CT scan on 04/15 showing dilated loops of jejeunum in the left hemiabdomen that abruptyl tapered to afocal point in the midabdpomen The patient was apparently poorly alert earlier today. She has developed a significant contraction alkalosis and wrsening MILE. Her creatinine had risen from normal range to 2.91 this AM. She has mopved to the ICU to be fluid resuscitated and monitored in preparation for eventual surgery. She is hypokalemic and getting KCL replacement. Her bP has been normal much of the day. Her urine output has tsailed off in the afternoon despite 3 liters of IV fluid. A cvp was placed and her CVP was 4 at abut 5 PM. 04/19 The patient is presently resting comfortably. S/p exploratory lap last night with lysis of adhesions for a SBO. The patient is making better urine today. Creatinine is 2.96. CVP is 4-5 presently. The patient is inno active pain. Reason for ICU Addmission:: Hypotension, acute renal failure, sbo Physical Exam Vital Signs: Temp Pulse Resp BP Pulse Ox 98.8 F 104 H 18 118/38 L 100 04/19/20 12:00 04/19/20 12:00 04/19/20 12:00 04/19/20 12:00 04/19/20 12:00 Intake & Output 04/18/20 04/19/20 04/20/20 06:59 06:59 06:59 Intake Total 1150 4996 14 Output Total 2100 1960 365 Balance -950 616 -287 Weight 83 kg 86.5 kg Weight/Height Weight 86.5 kg Height 5 ft 1 in Laboratory/Radiographs Laboratory Results: 04/19/20 03:45 04/19/20 03:45 04/18/20 04/18/20 04/18/20 13:21 17:25 18:00 WBC RBC Hgb Hct MCV MCH MCHC RDW Plt Count Seg Neutrophils % Carbonic Acid 1.92 H HCO3/H2CO3 Ratio 24:1 ABG pH 7.48 H ABG pCO2 63.7 H ABG pO2 138.8 H ABG HCO3 46.7 H ABG O2 Saturation 98.8 H ABG Base Excess 19.5 FiO2 ROOM AIR Sodium 144.8 148.8 H Potassium 3.3 L 3.3 L Chloride 85 L 91 L Carbon Dioxide 45 H* 47 H* Anion Gap 15 11 BUN 86 H 76 H Creatinine 2.65 H 2.47 H Est GFR ( Amer) 22 L 24 L Glucose 112 H 122 H Calcium 9.6 8.4 Magnesium Total Bilirubin AST Alkaline Phosphatase Total Protein Albumin 04/19/20 04/19/20 03:45 03:45 WBC 9.9 RBC 4.19 Hgb 11.8 L Hct 35.4 L MCV 85 MCH 28.1 MCHC 33.2 RDW 15.9 H Plt Count 240 Seg Neutrophils % 83.8 H Carbonic Acid HCO3/H2CO3 Ratio ABG pH ABG pCO2 ABG pO2 ABG HCO3 ABG O2 Saturation ABG Base Excess FiO2 Sodium 148.0 H Potassium 3.1 L Chloride 88 L Carbon Dioxide 49 H* Anion Gap 11 BUN 72 H Creatinine 1.94 H Est GFR ( Amer) 31 L Glucose 266 H Calcium 8.4 Magnesium 1.4 L Total Bilirubin 0.8 AST 20 Alkaline Phosphatase 143 H Total Protein 6.5 Albumin 3.3 L Impressions: Abdomen/Pelvis CT 04/15/20 10:11 IMPRESSION: 1. Numerous fluid-filled dilated loops of jejunum in the left hemiabdomen that abruptly taper to a normal caliber at a focal point of the transition in the mid abdomen (image 62 of series 102). These findings are concerning for a mechanical bowel obstruction. 2. Fat-containing ventral hernia associated with stranding of the herniated fat. Abdomen X-Ray 04/17/20 07:00 IMPRESSION: Re- demonstration of multiple gas distended loops of small bowel within the left hemiabdomen. Interval placement of an enteric tube demonstrating appropriate positioning. Diminished gastric gas. Chest X-Ray 04/18/20 00:00 IMPRESSION: Left IJV catheter as described. No acute pulmonary findings. KUB X-Ray 04/18/20 06:34 IMPRESSION: Ileus or partial small bowel obstruction. No significant change. Assessment and Plan - Diagnosis (1) MILE (acute kidney injury) Is this a current diagnosis for this admission?: Yes Plan: 04/18/2020-serum creatinine today is 2.9. Yesterday's creatinine is 1.22. MILE most likely secondary to prerenal causes. Given 1 L of normal saline bolus presently on normal saline at 125 cc/h. Patient is going to intensive care for further management. 04/18 The patient appears to be doing better. urine output has picked up and hopefully her numbers will improve in the next few days. Systoloc BP consistently > 100. 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 at this time. Latest blood sugar is 325. Continue insulin sliding scale. 04/18/2020-latest blood sugar is 203. On insulin sliding scale every 6 hours. Patient is n.p.o. at this time. 04/19 Her Blood sugars have risen today. i stopped D5 i/1 NaCL and changed over tho LR IV fluid Patient on glucometers with coverage as well. (3) Small bowel obstruction Is this a current diagnosis for this admission?: Yes Plan: Status post lysis of adhesions for internal herniation with resultant small bowel obstruction. Patient had also recurrent ventral hernia repair. She looks reasonably well postoperatively. May need additional fluids overnight depending on her CVP and pressures. We will administer morphine for pain. I have consulted nephrology for the morning to help us manage her acute renal insufficiency. 04/19 S/p suregery with lysis f adhesionsand clearing of SBO with Dr. Aquino. NGT in place to low suction/ Critical Time Critical Time (minutes): 25 Level of Care: ICU -: 1. The care of a critical patient is a dynamic process. This note is a contact representative synopsis but static in nature. The timeframe for treatments given in order is not necessarily the actual time these treatments may have been done. 2. This patient requires critical care secondary to ongoing requirements for therapy not offered or safe outside the critical care environment. Transfer to a lower level of care will result in altered life or limb morbidity and mortality. 3. Multidisciplinary rounds completed. 4. ABCDE bundle addressed.
[2020-04-19] MEDS: INSULIN REG, HUMAN 100 UNIT/ML 3 ML VIAL (PYX) SUBCUT SCH (19:05)
[2020-04-19] MEDS: RINGERS SOLUTION,LACTATED 1,000 ML IV PRN (19:22)
[2020-04-19] MEDS: INSULIN GLARGINE,HUM.REC.ANLOG 1,000 UNIT/10 ML VIAL SUBCUT SCH (21:37)
[2020-04-20] MEDS: MORPHINE SULFATE 10 MG/ML INJ IV PRN ×3 (02:55→20:31)
[2020-04-20] MEDS: LORAZEPAM INJ 2 MG/1 ML VIAL IV PRN ×3 (04:35→23:00)
[2020-04-20] MEDS: RINGERS SOLUTION,LACTATED 1,000 ML IV PRN (04:35)
[2020-04-20] MEDS: ENALAPRILAT DIHYDRATE INJ/PF 1.25 MG/1 ML SDV IV SCH ×5 (05:59→23:16)
[2020-04-20] MEDS: INSULIN REG, HUMAN 100 UNIT/ML 3 ML VIAL (PYX) SUBCUT SCH ×4 (05:59→17:51)
[2020-04-20] MEDS: HEPARIN SOD (PORCINE) 5,000 UNIT/ML 1 ML VIAL SUBCUT SCH ×3 (06:06→23:00)
[2020-04-20] MEDS ORDERED: DEXTROSE 5%-NORMAL SALINE 1,000 ML IV PRN (08:32)
[2020-04-20] MEDS: INSULIN LISPRO 100 UNIT/ML 3 ML VIAL SUBCUT SCH ×3 (08:52→17:49)
--- NOTE | 2020-04-20 09:01 | PDOC PROGRESS REPORT ---
Subjective Date:: 04/20/20 Reason For Visit: PATIENT POST OP SBO Patient want something to drink; nasogastric tube still putting out bilious material. Patient remains at bedrest, on narcotics, Muniz catheter in Physical Exam Vital Signs: Temp Pulse Resp BP Pulse Ox 98.2 F 101 H 19 107/83 93 04/20/20 07:53 04/20/20 07:22 04/20/20 07:22 04/20/20 07:22 04/20/20 07:22 Intake & Output 04/19/20 04/20/20 04/21/20 06:59 06:59 06:59 Intake Total 4996 2581 Output Total 4310 1960 Balance 686 621 Weight 86.5 kg 94.4 kg General appearance: PRESENT: no acute distress GI/Abdominal exam: PRESENT: other - Abdomen is soft, appropriately tender. Not distended. Operative dressing removed, marina intact; dressing replaced. Results Laboratory Results: 04/19/20 03:45 04/19/20 03:45 Impressions: Abdomen/Pelvis CT 04/15/20 10:11 IMPRESSION: 1. Numerous fluid-filled dilated loops of jejunum in the left hemiabdomen that abruptly taper to a normal caliber at a focal point of the transition in the mid abdomen (image 62 of series 102). These findings are concerning for a mechanical bowel obstruction. 2. Fat-containing ventral hernia associated with stranding of the herniated fat. Abdomen X-Ray 04/17/20 07:00 IMPRESSION: Re- demonstration of multiple gas distended loops of small bowel within the left hemiabdomen. Interval placement of an enteric tube demonstrating appropriate positioning. Diminished gastric gas. Chest X-Ray 04/18/20 00:00 IMPRESSION: Left IJV catheter as described. No acute pulmonary findings. KUB X-Ray 04/18/20 06:34 IMPRESSION: Ileus or partial small bowel obstruction. No significant change. Assessment & Plan - Diagnosis (1) Bowel obstruction Qualifiers: Intestinal obstruction type: obstruction due to adhesions Intestinal obstruction extent: complete Qualified Code(s): K56.52 - Intestinal adhesions [bands] with complete obstruction Is this a current diagnosis for this admission?: Yes Plan: Impression: Patient is 2 days status post exploratory laparotomy, lysis of adhesions, primary wound closure, no drain, with low-grade ileus. Recommendations: 1. Continue supportive care. May consider clamping nasogastric tube if drainage diminishes 2. Patient's chronic bedridden condition, and chronic narcotic therapy will delay resolution of ileus. 3. May discontinue intravenous antibiotics 4. We will continue to follow patient with the hospitalist service. (2) Morbid obesity Is this a current diagnosis for this admission?: Yes (3) Asthma Qualifiers: Asthma severity: mild Asthma persistence: intermittent Asthma complication type: uncomplicated Qualified Code(s): J45.20 - Mild intermittent asthma, uncomplicated Is this a current diagnosis for this admission?: Yes (4) Diabetes mellitus type 1 Qualifiers: Diabetes mellitus complication status: without complication Qualified Code(s): E10.9 - Type 1 diabetes mellitus without complications - Time Anticipated Discharge Disposition: [facility] Facility Anticipated Discharge Timeframe: within 72 hours
[2020-04-20] MEDS: LEVOFLOXACIN 500 MG/D5W RTU 500 MG/100 ML RTUPB IV SCH (10:07)
--- NOTE | 2020-04-20 11:53 | PDOC PROGRESS REPORT ---
Subjective Date:: 04/20/20 Subjective:: This patient was transferred from the ICU after she was monitored postop status post small bowel obstruction. She had an uneventful stay. She is complaining of thirsty and wants something to drink. Has been seen by surgery this morning remains n.p.o. he is chronically bedridden. He suggested discontinue IV antibiotics text Reason For Visit: PATIENT POST OP SBO Physical Exam Vital Signs: Temp Pulse Resp BP Pulse Ox 98.2 F 101 H 19 107/83 93 04/20/20 07:53 04/20/20 07:22 04/20/20 07:22 04/20/20 07:22 04/20/20 07:22 Intake & Output 04/19/20 04/20/20 04/21/20 06:59 06:59 06:59 Intake Total 4996 2581 Output Total 4310 1960 Balance 686 621 Weight 86.5 kg 94.4 kg General appearance: PRESENT: no acute distress, obese Head exam: PRESENT: atraumatic, normocephalic Eye exam: PRESENT: conjunctiva pink, EOMI, PERRLA. ABSENT: scleral icterus Ear exam: PRESENT: normal external ear exam Mouth exam: PRESENT: dry mucosa, tongue midline, other - NG tube in place Neck exam: ABSENT: carotid bruit, JVD, lymphadenopathy, thyromegaly Respiratory exam: PRESENT: clear to auscultation lubna, unlabored. ABSENT: rales, rhonchi, wheezes Cardiovascular exam: PRESENT: RRR, +S1, +S2. ABSENT: diastolic murmur, rubs, systolic murmur Pulses: PRESENT: normal dorsalis pedis pul GI/Abdominal exam: PRESENT: soft, tenderness. ABSENT: distended, guarding, mass, organolmegaly, rebound Rectal exam: PRESENT: deferred Extremities exam: PRESENT: full ROM. ABSENT: calf tenderness, clubbing, pedal edema Neurological exam: PRESENT: alert, awake, oriented to person, oriented to place, oriented to time, oriented to situation, CN II-XII grossly intact. ABSENT: motor sensory deficit Psychiatric exam: PRESENT: appropriate affect, normal mood. ABSENT: homicidal ideation, suicidal ideation Skin exam: PRESENT: dry, intact, warm. ABSENT: cyanosis, rash Results Laboratory Results: 04/19/20 03:45 04/19/20 03:45 Impressions: Abdomen/Pelvis CT 04/15/20 10:11 IMPRESSION: 1. Numerous fluid-filled dilated loops of jejunum in the left hemiabdomen that abruptly taper to a normal caliber at a focal point of the transition in the mid abdomen (image 62 of series 102). These findings are concerning for a mechanical bowel obstruction. 2. Fat-containing ventral hernia associated with stranding of the herniated fat. Abdomen X-Ray 04/17/20 07:00 IMPRESSION: Re- demonstration of multiple gas distended loops of small bowel within the left hemiabdomen. Interval placement of an enteric tube de monstrating appropriate positioning. Diminished gastric gas. Chest X-Ray 04/18/20 00:00 IMPRESSION: Left IJV catheter as described. No acute pulmonary findings. KUB X-Ray 04/18/20 06:34 IMPRESSION: Ileus or partial small bowel obstruction. No significant change. Assessment and Plan - Diagnosis (1) MILE (acute kidney injury) Is this a current diagnosis for this admission?: Yes Plan: 04/18/2020-serum creatinine today is 2.9. Yesterday's creatinine is 1.22. MILE most likely secondary to prerenal causes. Given 1 L of normal saline bolus presently on normal saline at 125 cc/h. Patient is going to intensive care for further management. 04/18 The patient appears to be doing better. urine output has picked up and hopefully her numbers will improve in the next few days. Systoloc BP consistently > 100. (2) Bowel obstruction Qualifiers: Intestinal obstruction type: obstruction due to adhesions Intestinal obstruction extent: complete Qualified Code(s): K56.52 - Intestinal adhesions [bands] with complete obstruction Is this a current diagnosis for this admission?: Yes Plan: Impression: Patient is 2 days status post exploratory laparotomy, lysis of adhesions, primary wound closure, no drain, with low-grade ileus. Recommendations: 1. Continue supportive care. May consider clamping nasogastric tube if drainage diminishes 2. Patient's chronic bedridden condition, and chronic narcotic therapy will delay resolution of ileus. 3. May discontinue intravenous antibiotics 4. We will continue to follow patient with the hospitalist service. (3) Chronic venous stasis dermatitis of both lower extremities Is this a current diagnosis for this admission?: No (4) Morbid obesity Is this a current diagnosis for this admission?: Yes Plan: 04/17/2020-patient BMI is more than 34. Diet exercise weight loss lifestyle modifications discussed with the patient. (5) Small bowel obstruction Is this a current diagnosis for this admission?: Yes Plan: Status post lysis of adhesions for internal herniation with resultant small bowel obstruction. Patient had also recurrent ventral hernia repair. She looks reasonably well postoperatively. May need additional fluids overnight depend ing on her CVP and pressures. We will administer morphine for pain. I have consulted nephrology for the morning to help us manage her acute renal insufficiency. 04/19 S/p suregery with lysis f adhesionsand clearing of SBO with Dr. Aquino. NGT in place to low suction/ (6) UTI (urinary tract infection) Is this a current diagnosis for this admission?: Yes Plan: Secondary to Klebsiella. Patient is on day 4 of Levaquin and as such I will continue antibiotics for now since she is able to take antibiotics orally (7) Electrolyte abnormality Is this a current diagnosis for this admission?: Yes Plan: We will check labs today and follow-up as appropriate - Plan Summary Summary: Electrolyte abnormalities including hyponatremia with a sodium of 148, potassium is 3.1, chloride of 88 CO2 of 49 creatinine of 1.9 and BUN of 72. Her glucose is also borderline hypoglycemic as patient has been n.p.o. Magnesium is noted to be 1.4. These labs are from April 19. I will repeat labs today with subsequent correction of electrolytes as indicated. Her IV fluid was changed to D5 since she remains n.p.o. and she is being hypoglycemic - Time Time Spent with patient: 15-24 minutes Medications reviewed and adjusted accordingly: Yes Anticipated Discharge Disposition: Home, Self Care Anticipated Discharge Timeframe: within 72 hours
[2020-04-20 13:12] LABS: ABSOLUTE EOSINOPHILS # (AUTO) 0.1 10^3/uL (0.0-0.6); ABSOLUTE MONOCYTES (AUTO) 0.6 10^3/uL (0.1-1.4); ABSOLUTE NEUT (AUTO) 6.7 10^3/uL (1.7-8.2); BASOPHILS % (AUTO) 0.1 % (0-2); EOSINOPHILS % (AUTO) 0.6 % (0-6); HEMATOCRIT 32.5 % (36.0-47.0); HEMOGLOBIN 10.8 g/dL (12.0-15.5); LYMPHOCYTES % (AUTO) 12.4 % (13-45); MEAN CORPUSCULAR HEMOGLOBIN 27.9 pg (27.0-33.4); MEAN CORPUSCULAR HGB CONC 33.3 g/dL (32.0-36.0); MEAN CORPUSCULAR VOLUME 84 fl (80-97); MONOCYTES % (AUTO) 7.2 % (3-13); PLATELET COUNT 228 10^3/uL (150-450); RED BLOOD COUNT 3.87 10^6/uL (3.72-5.28); RED CELL DISTRIBUTION WIDTH 15.9 % (11.5-14.0); SEGMENTED NEUTROPHILS % (AUTO) 79.7 % (42-78); TOTAL CELLS COUNTED % (AUTO) 100 %; WHITE BLOOD COUNT 8.4 10^3/uL (4.0-10.5)
[2020-04-20 13:32] LABS: BLOOD UREA NITROGEN 44 mg/dL (7-20); CALCIUM 8.3 mg/dL (8.4-10.2); CHLORIDE 87 mmol/L (98-107); GLUCOSE 115 mg/dL (75-110)
[2020-04-20 13:42] LABS: ANION GAP 10 (5-19)
[2020-04-20 13:45] LABS: POTASSIUM 2.4 mmol/L (3.6-5.0)
[2020-04-20 13:46] LABS: CARBON DIOXIDE 47 mmol/L (22-30)
[2020-04-20] MEDS: POTASSI CL 20 MEQ/50 ML RIDER 20 MEQ/50 ML RTUPB IV SCH ×2 (15:48→17:51)
[2020-04-20] MEDS: DEXTROSE 5%-NORMAL SALINE 1,000 ML with POTASSIUM CHLORIDE 40 MEQ IV PRN ×2 (15:51)
[2020-04-20] MEDS ORDERED: MAGNESIUM SULFATE 4 GM/100 ML RTUPB IV ONE (16:00)
[2020-04-20] MEDS: INSULIN GLARGINE,HUM.REC.ANLOG 1,000 UNIT/10 ML VIAL SUBCUT SCH (23:00)
[2020-04-21] MEDS: MORPHINE SULFATE 10 MG/ML INJ IV PRN ×4 (00:53→19:57)
[2020-04-21] MEDS: DEXTROSE 5%-NORMAL SALINE 1,000 ML with POTASSIUM CHLORIDE 40 MEQ IV PRN ×2 (01:01)
[2020-04-21] MEDS: INSULIN REG, HUMAN 100 UNIT/ML 3 ML VIAL (PYX) SUBCUT SCH ×5 (01:25→23:41)
[2020-04-21] MEDS: ENALAPRILAT DIHYDRATE INJ/PF 1.25 MG/1 ML SDV IV SCH ×4 (05:36→23:40)
[2020-04-21] MEDS: HEPARIN SOD (PORCINE) 5,000 UNIT/ML 1 ML VIAL SUBCUT SCH ×3 (05:37→21:16)
[2020-04-21 07:00] LABS: BLOOD UREA NITROGEN 36 mg/dL (7-20); CALCIUM 8.5 mg/dL (8.4-10.2); CHLORIDE 84 mmol/L (98-107); GLUCOSE 253 mg/dL (75-110)
[2020-04-21 07:18] LABS: ANION GAP 7 (5-19)
[2020-04-21 07:20] LABS: CARBON DIOXIDE 56 mmol/L (22-30); POTASSIUM 2.4 mmol/L (3.6-5.0)
[2020-04-21] MEDS: LEVOFLOXACIN 500 MG/D5W RTU 500 MG/100 ML RTUPB IV SCH (09:25)
[2020-04-21] MEDS: POTASSI CL 20 MEQ/50 ML RIDER 20 MEQ/50 ML RTUPB IV SCH ×6 (09:25→23:42)
--- NOTE | 2020-04-21 09:38 | PDOC PROGRESS REPORT ---
Subjective Date:: 04/21/20 Reason For Visit: PATIENT POST OP SBO Patient pulled her own NG tube out. Still has Muniz in. Essentially confined to the bed. Want something to drink. Physical Exam Vital Signs: Temp Pulse Resp BP Pulse Ox 98.0 F 98 19 143/51 H 89 L 04/21/20 08:29 04/21/20 08:23 04/21/20 08:23 04/21/20 08:23 04/21/20 08:23 Intake & Output 04/20/20 04/21/20 04/22/20 06:59 06:59 06:59 Intake Total 2581 4696 Output Total 4739 4200 175 Balance 621 496 -175 Weight 94.4 kg 91.3 kg General appearance: PRESENT: no acute distress GI/Abdominal exam: PRESENT: other - Abdomen examined; no tenderness. Staple line intact, with honeycomb dressing in place. Results Laboratory Results: 04/20/20 12:30 04/21/20 05:46 04/20/20 04/20/20 04/21/20 12:30 12:30 05:46 WBC 8.4 RBC 3.87 Hgb 10.8 L Hct 32.5 L MCV 84 MCH 27.9 MCHC 33.3 RDW 15.9 H Plt Count 228 Seg Neutrophils % 79.7 H Sodium 143.6 147.3 H Potassium 2.4 L* 2.4 L* Chloride 87 L 84 L Carbon Dioxide 47 H* 56 H* Anion Gap 10 7 BUN 44 H 36 H Creatinine 0.95 0.96 Est GFR ( Amer) > 60 > 60 Glucose 115 H 253 H Calcium 8.3 L 8.5 Magnesium 1.3 L 2.6 H D Impressions: Abdomen/Pelvis CT 04/15/20 10:11 IMPRESSION: 1. Numerous fluid-filled dilated loops of jejunum in the left hemiabdomen that abruptly taper to a normal caliber at a focal point of the transition in the mid abdomen (image 62 of series 102). These findings are concerning for a mechanical bowel obstruction. 2. Fat-containing ventral hernia associated with stranding of the herniated fat. Abdomen X-Ray 04/17/20 07:00 IMPRESSION: Re- demonstration of multiple gas distended loops of small bowel within the left hemiabdomen. Interval placement of an enteric tube demonstrating appropriate positioning. Diminished gastric gas. Chest X-Ray 04/18/20 00:00 IMPRESSION: Left IJV catheter as described. No acute pulmonary findings. KUB X-Ray 04/18/20 06:34 IMPRESSION: Ileus or partial small bowel obstruction. No significant change. Assessment & Plan - Diagnosis (1) Bowel obstruction Qualifiers: Intestinal obstruction type: obstruction due to adhesions Intestinal obstruction extent: complete Qualified Code(s): K56.52 - Intestinal adhesions [bands] with complete obstruction Is this a current diagnosis for this admission?: Yes Plan: Impression: Patient is 3 days status post exploratory laparotomy, lysis of adhesions, closure of ventral wall hernia, nasogastric tube self removed, no postoperative issues. Recommendations: 1. Leave NG tube out; start surgical sips 2. Can discontinue IV Levaquin from a postoperative standpoint 3. Suggested nursing staff get PT involved, assess mobilization capabilities with Shin lift (2) Morbid obesity Is this a current diagnosis for this admission?: Yes (3) Asthma Qualifiers: Asthma severity: mild Asthma persistence: intermittent Asthma complication type: uncomplicated Qualified Code(s): J45.20 - Mild intermittent asthma, uncomplicated Is this a current diagnosis for this admission?: Yes (4) Diabetes mellitus type 1 Qualifiers: Diabetes mellitus complication status: without complication Qualified Code(s): E10.9 - Type 1 diabetes mellitus without complications - Time Anticipated Discharge Disposition: Nursing Home Facility Anticipated Discharge Timeframe: within 72 hours
[2020-04-21] MEDS: LORAZEPAM INJ 2 MG/1 ML VIAL IV PRN ×2 (11:23→21:16)
[2020-04-21] MEDS: INSULIN LISPRO 100 UNIT/ML 3 ML VIAL SUBCUT SCH ×3 (12:34→17:48)
--- NOTE | 2020-04-21 12:37 | PDOC PROGRESS REPORT ---
Subjective Date:: 04/21/20 Subjective:: This patient was transferred from the ICU after she was monitored postop status post small bowel obstruction. She had an uneventful stay. She is complaining of thirsty and wants something to drink. Has been seen by surgery this morning remains n.p.o. he is chronically bedridden. He suggested discontinue IV antibiotics 04/21 Reason For Visit: PATIENT POST OP SBO Physical Exam Vital Signs: Temp Pulse Resp BP Pulse Ox 98.0 F 98 19 143/51 H 89 L 04/21/20 08:29 04/21/20 08:23 04/21/20 08:23 04/21/20 08:23 04/21/20 08:23 Intake & Output 04/20/20 04/21/20 04/22/20 06:59 06:59 06:59 Intake Total 2581 4696 146 Output Total 7832 4200 175 Balance 621 496 -29 Weight 94.4 kg 91.3 kg Results Laboratory Results: 04/20/20 12:30 04/21/20 05:46 04/20/20 04/20/20 04/21/20 12:30 12:30 05:46 WBC 8.4 RBC 3.87 Hgb 10.8 L Hct 32.5 L MCV 84 MCH 27.9 MCHC 33.3 RDW 15.9 H Plt Count 228 Seg Neutrophils % 79.7 H Sodium 143.6 147.3 H Potassium 2.4 L* 2.4 L* Chloride 87 L 84 L Carbon Dioxide 47 H* 56 H* Anion Gap 10 7 BUN 44 H 36 H Creatinine 0.95 0.96 Est GFR ( Amer) > 60 > 60 Glucose 115 H 253 H Calcium 8.3 L 8.5 Magnesium 1.3 L 2.6 H D Impressions: Abdomen/Pelvis CT 04/15/20 10:11 IMPRESSION: 1. Numerous fluid-filled dilated loops of jejunum in the left hemiabdomen that abruptly taper to a normal caliber at a focal point of the tra nsition in the mid abdomen (image 62 of series 102). These findings are concerning for a mechanical bowel obstruction. 2. Fat-containing ventral hernia associated with stranding of the herniated fat. Abdomen X-Ray 04/17/20 07:00 IMPRESSION: Re- demonstration of multiple gas distended loops of small bowel within the left hemiabdomen. Interval placement of an enteric tube demonstrating appropriate positioning. Diminished gastric gas. Chest X-Ray 04/18/20 00:00 IMPRESSION: Left IJV catheter as described. No acute pulmonary findings. KUB X-Ray 04/18/20 06:34 IMPRESSION: Ileus or partial small bowel obstruction. No significant change. Assessment and Plan - Diagnosis (1) MILE (acute kidney injury) Is this a current diagnosis for this admission?: Yes (2) Bowel obstruction Qualifiers: Intestinal obstruction type: obstruction due to adhesions Intestinal o bstruction extent: complete Qualified Code(s): K56.52 - Intestinal adhesions [bands] with complete obstruction Is this a current diagnosis for this admission?: Yes Plan: General surgery Impression: Patient is 3 days status post exploratory laparotomy, lysis of adhesions, closure of ventral wall hernia, nasogastric tube self removed, no postoperative issues. Recommendations: 1. Leave NG tube out; start surgical sips 2. Can discontinue IV Levaquin from a postoperative standpoint 3. Suggested nursing staff get PT involved, assess mobilization capabilities with Shin lift (3) Chronic venous stasis dermatitis of both lower extremities Is this a current diagnosis for this admission?: Yes (4) Morbid obesity Is this a current diagnosis for this admission?: Yes (5) Small bowel obstruction Is this a current diagnosis for this admission?: Yes Plan: Status post lysis of adhesions for internal herniation with resultant small bowel obstruction. Patient had also recurrent ventral hernia repair. She looks reasonably well postoperatively. May need additional fluids overnight depending on her CVP and pressures. We will administer morphine for pain. I have consulted nephrology for the morning to help us manage her acute renal insufficiency. 04/19 S/p suregery with lysis f adhesionsand clearing of SBO with Dr. Aquino. NGT in place to low suction/ 04/21 apparently pulled out her NG tube and has refused reinsertion. Further management as per surgery (6) UTI (urinary tract infection) Is this a current diagnosis for this admission?: Yes Plan: Secondary to Klebsiella. Patient is on day 5/5 of Levaquin and as such I will discontinue antibiotics after today dose (7) Electrolyte abnormality Is this a current diagnosis for this admission?: Yes (8) Alkalosis, metabolic Is this a current diagnosis for this admission?: Yes Plan: Pretty profound and severe. Please see discussion below. Follow-up on urine chloride as well as electrolytes. Consider acetazolamide - Plan Summary Summary: Electrolyte abnormalities including hyponatremia with a sodium of 148, potassium is 3.1, chloride of 88 CO2 of 49 creatinine of 1.9 and BUN of 72. Her glucose is also borderline hypoglycemic as patient has been n.p.o. Magnesium is noted to be 1.4. These labs are from April 19. I will repeat labs today with subsequent correction of electrolytes as indicated. Her IV fluid was changed to D5 since she remains n.p.o. and she is being hypoglycemic 04/21Patient has profound metabolic alkalosis likely secondary to the profound hypokalemia. We will continue to correct her hypokalemia and be a bit more aggressive today. She is receiving 60 mEq IV this morning and will repeat potassium levels this afternoon for further correction as needed. Apparently she did not receive IV fluids as ordered over the last 24 hours although she did receive the potassium riders ordered yesterday. The last blood gas that was done on 18 April did reveal an alkalosis that appears to be uncompensated and acute which was postop. Initial potassium was 4.3 but she has been profoundly hypokalemic since then patient also CO2 likewise was normal at 27 and this has gradually risen up to 56 today if needed she may be placed on IV acetazolamide I will check a urine chloride to ascertain that this is a chloride responsive alkalosis, continue with the replacement normal saline as well as potassium riders and recheck as appropriate - Time Time Spent with patient: 25-34 minutes Medications reviewed and adjusted accordingly: Yes Anticipated Discharge Disposition: Nursing Home Facility Anticipated Discharge Timeframe: within 72 hours
--- NOTE | 2020-04-21 14:19 | RADIOLOGY REPORT (SQ) ---
EXAM DESCRIPTION: CHEST SINGLE VIEW IMAGES COMPLETED DATE/TIME: 04/21/2020 2:05 pm REASON FOR STUDY: NG tube placement COMPARISON: 04/18/2020 TECHNIQUE: Single frontal radiographic view of the chest acquired. NUMBER OF VIEWS: One view. LIMITATIONS: None. FINDINGS: LUNGS AND PLEURA: No pneumothorax. No consolidation. Similar small left pleural effusion. MEDIASTINUM AND HILAR STRUCTURES: Stable. HEART AND VASCULAR STRUCTURES: Stable. BONES: No acute findings. HARDWARE: NG tube tip and side-port overlies the body of the stomach. OTHER: Dilated small bowel over the upper abdomen. IMPRESSION: NG tube tip and side-port overlies the body of the stomach. TECHNICAL DOCUMENTATION: JOB ID: [id number] [place]-72 2010 [employer] [facility]- All Rights Reserved Reading location - IP/workstation name: [email or web address]
[2020-04-21] MEDS: POTASSI CL 40 MEQ/NS 1L 1,000 ML IV PRN (16:30)
[2020-04-21 18:08] LABS: BLOOD UREA NITROGEN 33 mg/dL (7-20); CALCIUM 8.5 mg/dL (8.4-10.2); CHLORIDE 82 mmol/L (98-107); GLUCOSE 347 mg/dL (75-110)
[2020-04-21 18:18] LABS: ANION GAP 13 (5-19)
[2020-04-21 18:23] LABS: CARBON DIOXIDE 53 mmol/L (22-30); POTASSIUM 2.7 mmol/L (3.6-5.0)
[2020-04-21] MEDS: INSULIN GLARGINE,HUM.REC.ANLOG 1,000 UNIT/10 ML VIAL SUBCUT SCH (21:58)
[2020-04-22 04:26] LABS: ABSOLUTE EOSINOPHILS # (AUTO) 0.1 10^3/uL (0.0-0.6); ABSOLUTE LYMPHOCYTES (AUTO) 0.9 10^3/uL (0.5-4.7); ABSOLUTE MONOCYTES (AUTO) 0.6 10^3/uL (0.1-1.4); ABSOLUTE NEUT (AUTO) 4.7 10^3/uL (1.7-8.2); BASOPHILS % (AUTO) 0.1 % (0-2); EOSINOPHILS % (AUTO) 1.4 % (0-6); HEMATOCRIT 32.9 % (36.0-47.0); HEMOGLOBIN 10.7 g/dL (12.0-15.5); LYMPHOCYTES % (AUTO) 14.2 % (13-45); MEAN CORPUSCULAR HEMOGLOBIN 27.4 pg (27.0-33.4); MEAN CORPUSCULAR HGB CONC 32.6 g/dL (32.0-36.0); MEAN CORPUSCULAR VOLUME 84 fl (80-97); MONOCYTES % (AUTO) 9.4 % (3-13); PLATELET COUNT 213 10^3/uL (150-450); RED BLOOD COUNT 3.92 10^6/uL (3.72-5.28); RED CELL DISTRIBUTION WIDTH 15.8 % (11.5-14.0); SEGMENTED NEUTROPHILS % (AUTO) 74.9 % (42-78); TOTAL CELLS COUNTED % (AUTO) 100 %; WHITE BLOOD COUNT 6.3 10^3/uL (4.0-10.5)
[2020-04-22 04:59] LABS: BLOOD UREA NITROGEN 31 mg/dL (7-20); CALCIUM 8.5 mg/dL (8.4-10.2); CHLORIDE 90 mmol/L (98-107); GLUCOSE 113 mg/dL (75-110); POTASSIUM 3.5 mmol/L (3.6-5.0)
[2020-04-22] MEDS: HEPARIN SOD (PORCINE) 5,000 UNIT/ML 1 ML VIAL SUBCUT SCH ×3 (05:18→21:52)
[2020-04-22] MEDS: ENALAPRILAT DIHYDRATE INJ/PF 1.25 MG/1 ML SDV IV SCH ×4 (05:19→23:07)
[2020-04-22] MEDS: MORPHINE SULFATE 10 MG/ML INJ IV PRN ×2 (05:19→20:30)
[2020-04-22 05:21] LABS: ANION GAP 5 (5-19)
[2020-04-22 05:22] LABS: CARBON DIOXIDE 54 mmol/L (22-30)
[2020-04-22] MEDS: INSULIN REG, HUMAN 100 UNIT/ML 3 ML VIAL (PYX) SUBCUT SCH ×4 (05:25→23:16)
[2020-04-22] MEDS: INSULIN LISPRO 100 UNIT/ML 3 ML VIAL SUBCUT SCH ×3 (09:58→17:27)
[2020-04-22] MEDS: POTASSI CL 40 MEQ/NS 1L 1,000 ML IV PRN ×2 (12:54→23:07)
[2020-04-22] MEDS: LORAZEPAM INJ 2 MG/1 ML VIAL IV PRN ×2 (13:38→20:31)
--- NOTE | 2020-04-22 14:23 | PDOC PROGRESS REPORT ---
Subjective Date:: 04/22/20 Subjective:: Patient was seen and examined. She has NG tube and only allowed ice chips per s urgeon recommendations. Skin to have more food. NG tube was hooked up to suction and there is large amount of drainage from the tube. Reason For Visit: PATIENT POST OP SBO Physical Exam Vital Signs: Temp Pulse Resp BP Pulse Ox 97.9 F 97 19 138/64 H 94 04/22/20 10:00 04/22/20 11:25 04/22/20 11:25 04/22/20 11:25 04/22/20 11:25 Intake & Output 04/21/20 04/22/20 04/23/20 06:59 06:59 06:59 Intake Total 4696 2359 Output Total 4200 3975 Balance 496 -1616 Weight 201 lb 4.513 oz 195 lb 15.855 oz General appearance: PRESENT: no acute distress, cooperative Head exam: PRESENT: atraumatic Eye exam: PRESENT: EOMI Ear exam: ABSENT: bleeding Respiratory exam: PRESENT: clear to auscultation lubna, unlabored Cardiovascular exam: PRESENT: RRR, +S1, +S2 GI/Abdominal exam: PRESENT: normal bowel sounds, soft. ABSENT: tenderness Neurological exam: PRESENT: alert, awake, oriented to person, oriented to place, oriented to time, oriented to situation Results Laboratory Results: 04/22/20 04:00 04/22/20 04:00 04/21/20 04/22/20 04/22/20 17:20 04:00 04:00 WBC 6.3 RBC 3.92 Hgb 10.7 L Hct 32.9 L MCV 84 MCH 27.4 MCHC 32.6 RDW 15.8 H Plt Count 213 Seg Neutrophils % 74.9 Sodium 147.7 H 149.3 H Potassium 2.7 L* 3.5 L Chloride 82 L 90 L Carbon Dioxide 53 H* 54 H* Anion Gap 13 5 BUN 33 H 31 H Creatinine 1.05 1.11 Est GFR ( Amer) > 60 > 60 Glucose 347 H 113 H Calcium 8.5 8.5 Impressions: Abdomen/Pelvis CT 04/15/20 10:11 IMPRESSION: 1. Numerous fluid-filled dilated loops of jejunum in the left hemiabdomen that abruptly taper to a normal caliber at a focal point of the transition in the mid abdomen (image 62 of series 102). These findings are concerning for a mechanical bowel obstruction. 2. Fat-containing ventral hernia associated with stranding of the herniated fat. Abdomen X-Ray 04/17/20 07:00 IMPRESSION: Re- demonstration of multiple gas distended loops of small bowel within the left hemiabdomen. Interval placement of an enteric tube demonstrating appropriate positioning. Diminished gastric gas. KUB X-Ray 04/18/20 06:34 IMPRESSION: Ileus or partial small bowel obstruction. No significant change. Chest X-Ray 04/21/20 00:00 IMPRESSION: NG tube tip and side-port overlies the body of the stomach. Assessment and Plan - Diagnosis (1) MILE (acute kidney injury) Is this a current diagnosis for this admission?: Yes Plan: Creatinine improved with IV fluids. (2) Alkalosis, metabolic Is this a current diagnosis for this admission?: Yes Plan: Most likely due to loss of gastric HCl from NG tube. Continue to monitor (3) Bowel obstruction Qualifiers: Intestinal obstruction type: obstruction due to adhesions Intestinal o bstruction extent: complete Qualified Code(s): K56.52 - Intestinal adhesions [bands] with complete obstruction Is this a current diagnosis for this admission?: Yes Plan: General surgery Impression: Patient is 3 days status post exploratory laparotomy, lysis of adhesions, closure of ventral wall hernia, nasogastric tube self removed, no postoperative issues. Recommendations: 1. Leave NG tube out; start surgical sips 2. Can discontinue IV Levaquin from a postoperative standpoint 3. Suggested nursing staff get PT involved, assess mobilization capabilities with Shin lift (4) Chronic venous stasis dermatitis of both lower extremities Is this a current diagnosis for this admission?: Yes (5) Electrolyte abnormality Is this a current diagnosis for this admission?: Yes Plan: Monitor (6) Morbid obesity Is this a current diagnosis for this admission?: Yes Plan: BMI is more than 34. Diet exercise weight loss lifestyle modifications discussed with the patient. (7) Small bowel obstruction Is this a current diagnosis for this admission?: Yes Plan: S/p suregery with lysis f adhesionsand clearing of SBO with Dr. Aquino. NGT in place to low suction (8) UTI (urinary tract infection) Is this a current diagnosis for this admission?: Yes Plan: Secondary to Klebsiella. Finished 5 days course of Levaquin. - Plan Summary Summary: Electrolyte abnormalities including hyponatremia with a sodium of 148, potassium is 3.1, chloride of 88 CO2 of 49 creatinine of 1.9 and BUN of 72. Her glucose is also borderline hypoglycemic as patient has been n.p.o. Magnesium is noted to be 1.4. These labs are from April 19. I will repeat labs today with subsequent correction of electrolytes as indicated. Her IV fluid was changed to D5 since she remains n.p.o. and she is being hypoglycemic 04/21Patient has profound metabolic alkalosis likely secondary to the profound hypokalemia. We will continue to correct her hypokalemia and be a bit more aggressive today. She is receiving 60 mEq IV this morning and will repeat potassium levels this afternoon for further correction as needed. Apparently she did not receive IV fluids as ordered over the last 24 hours although she did receive the potassium riders ordered yesterday. The last blood gas that was done on 18 April did reveal an alkalosis that appears to be uncompensated and acute which was postop. Initial potassium was 4.3 but she has been profoundly hypokalemic since then patient also CO2 likewise was normal at 27 and this has gradually risen up to 56 today if needed she may be placed on IV acetazolamide I will check a urine chloride to ascertain that this is a chloride responsive alkalosis, continue with the replacement normal saline as well as potassium riders and recheck as appropriate - Time Anticipated Discharge Disposition: Long-Term Facility Anticipated Discharge Timeframe: na
--- NOTE | 2020-04-22 15:11 | RADIOLOGY REPORT (SQ) ---
EXAM DESCRIPTION: KUB/ABDOMEN (SINGLE VIEW) IMAGES COMPLETED DATE/TIME: 04/22/2020 3:03 pm REASON FOR STUDY: abdominal distention COMPARISON: 04/18/2020 NUMBER OF VIEWS: One view. TECHNIQUE: Supine radiographic image of the abdomen acquired. LIMITATIONS: None. FINDINGS: BOWEL GAS PATTERN: Mildly dilated loop of small bowel in the left lower quadrant. Overall findings are significantly improved from prior study. There is mild gastric distention. CALCIFICATIONS: No suspicious calcifications. SOFT TISSUES: No gross mass or suggestion of organomegaly. HARDWARE: Surgical clips overlie the left flank. BONES: No acute fracture. No worrisome bone lesions. OTHER: No other significant finding. IMPRESSION: Mildly dilated small bowel in the left lower quadrant. Overall findings are significant ly improved from preoperative film dated 04/18/2020. TECHNICAL DOCUMENTATION: JOB ID: [id number] 2010 [employer]- All Rights Reserved Reading location - IP/workstation name: [email or web address]
--- NOTE | 2020-04-22 16:15 | PDOC PROGRESS REPORT ---
Subjective Date:: 04/22/20 Reason For Visit: PATIENT POST OP SBO Physical Exam Vital Signs: Temp Pulse Resp BP Pulse Ox 97.9 F 97 19 138/64 H 94 04/22/20 10:00 04/22/20 11:25 04/22/20 11:25 04/22/20 11:25 04/22/20 11:25 Intake & Output 04/21/20 04/22/20 04/23/20 06:59 06:59 06:59 Intake Total 4610 1679 Output Total 4206 5050 Balance 496 -1616 Weight 91.3 kg 88.9 kg Results Laboratory Results: 04/22/20 04:00 04/22/20 04:00 04/21/20 04/22/20 04/22/20 17: 04:00 04:00 WBC 6.3 RBC 3.92 Hgb 10.7 L Hct 32.9 L MCV 84 MCH 27.4 MCHC 32.6 RDW 15.8 H Plt Count 213 Seg Neutrophils % 74.9 Sodium 147.7 H 149.3 H Potassium 2.7 L* 3.5 L Chloride 82 L 90 L Carbon Dioxide 53 H* 54 H* Anion Gap 13 5 BUN 33 H 31 H Creatinine 1.05 1.11 Est GFR ( Amer) > 60 > 60 Glucose 347 H 113 H Calcium 8.5 8.5 Impressions: Abdomen/Pelvis CT 04/15/20 10:11 IMPRESSION: 1. Numerous fluid-filled dilated loops of jejunum in the left hemiabdomen that abruptly taper to a normal caliber at a focal point of the transition in the mid abdomen (image 62 of series 102). These findings are concerning for a mechanical bowel obstruction. 2. Fat-containing ventral hernia associated with stranding of the herniated fat. Abdomen X-Ray 04/17/20 07:00 IMPRESSION: Re- demonstration of multiple gas distended loops of small bowel within the left hemiabdomen. Interval placement of an enteric tube demons trating appropriate positioning. Diminished gastric gas. Chest X-Ray 04/21/20 00:00 IMPRESSION: NG tube tip and side-port overlies the body of the stomach. KUB X-Ray 04/22/20 00:00 IMPRESSION: Mildly dilated small bowel in the left lower quadrant. Overall findings are significantly improved from preoperative film dated 04/18/2020. Assessment & Plan - Diagnosis (1) Small bowel obstruction Is this a current diagnosis for this admission?: Yes - Time Anticipated Discharge Disposition: unknown Anticipated Discharge Timeframe: unknown - Plan Summary Plan Summary: 64-year-old female status post ex lap for small bowel obstruction. The patient still has not passed any flatus or had a bowel movement. She continues to have high output from her NG tube. Continue with NG decompression, and ice chips only. We will order a warm tap water enema and hopes of stimulating a bowel movement. Surgery will continue to follow.
[2020-04-22] MEDS: INSULIN GLARGINE,HUM.REC.ANLOG 1,000 UNIT/10 ML VIAL SUBCUT SCH (22:11)
[2020-04-23 05:47] LABS: HEMATOCRIT 29.3 % (36.0-47.0); HEMOGLOBIN 9.8 g/dL (12.0-15.5); MEAN CORPUSCULAR HEMOGLOBIN 28.3 pg (27.0-33.4); MEAN CORPUSCULAR HGB CONC 33.3 g/dL (32.0-36.0); MEAN CORPUSCULAR VOLUME 85 fl (80-97); PLATELET COUNT 189 10^3/uL (150-450); RED BLOOD COUNT 3.45 10^6/uL (3.72-5.28); RED CELL DISTRIBUTION WIDTH 16.3 % (11.5-14.0); WHITE BLOOD COUNT 8.1 10^3/uL (4.0-10.5)
[2020-04-23 05:57] LABS: BLOOD UREA NITROGEN 34 mg/dL (7-20); CALCIUM 7.9 mg/dL (8.4-10.2); CHLORIDE 100 mmol/L (98-107); GLUCOSE 130 mg/dL (75-110); POTASSIUM 3.6 mmol/L (3.6-5.0)
[2020-04-23 06:04] LABS: ANION GAP 8 (5-19)
[2020-04-23 06:11] LABS: CARBON DIOXIDE 40 mmol/L (22-30)
[2020-04-23] MEDS: ENALAPRILAT DIHYDRATE INJ/PF 1.25 MG/1 ML SDV IV SCH ×3 (06:38→17:44)
[2020-04-23] MEDS: HEPARIN SOD (PORCINE) 5,000 UNIT/ML 1 ML VIAL SUBCUT SCH ×3 (06:39→22:08)
[2020-04-23] MEDS: INSULIN REG, HUMAN 100 UNIT/ML 3 ML VIAL (PYX) SUBCUT SCH ×4 (06:39→22:08)
--- NOTE | 2020-04-23 10:28 | PDOC PROGRESS REPORT ---
Subjective Date:: 04/23/20 Reason For Visit: PATIENT POST OP SBO Patient with some measuring. No nausea or vomiting overnight. Physical Exam Vital Signs: Temp Pulse Resp BP Pulse Ox 97.5 F 102 H 18 108/65 95 04/23/20 08:41 04/23/20 08:41 04/23/20 08:41 04/23/20 08:41 04/23/20 08:41 Intake & Output 04/22/20 04/23/20 04/24/20 06:59 06:59 06:59 Intake Total 2359 1000 Output Total 3975 2049 Balance -1616 -1050 Weight 88.9 kg 88.1 kg General appearance: PRESENT: no acute distress GI/Abdominal exam: PRESENT: other - Dressing removed; marina intact; abdomen softer today compared with yesterday. Results Laboratory Results: 04/23/20 04:55 04/23/20 04:55 04/23/20 04/23/20 04:55 04:55 WBC 8.1 RBC 3.45 L Hgb 9.8 L Hct 29.3 L MCV 85 MCH 28.3 MCHC 33.3 RDW 16.3 H Plt Count 189 Sodium 148.3 H Potassium 3.6 Chloride 100 Carbon Dioxide 40 H* Anion Gap 8 BUN 34 H Creatinine 1.00 Est GFR ( Amer) > 60 Glucose 130 H Calcium 7.9 L Impressions: Abdomen/Pelvis CT 04/15/20 10:11 IMPRESSION: 1. Numerous fluid-filled dilated loops of jejunum in the left hemiabdomen that abruptly taper to a normal caliber at a focal point of the transition in the mid abdomen (image 62 of series 102). These findings are concerning for a mechanical bowel obstruction. 2. Fat-containing ventral hernia associated with stranding of the herniated fat. Abdomen X-Ray 04/17/20 07:00 IMPRESSION: Re- demonstration of multiple gas distended loops of small bowel within the left hemiabdomen. Interval placement of an enteric tube demonstrating appropriate positioning. Diminished gastric gas. Chest X-Ray 04/21/20 00:00 IMPRESSION: NG tube tip and side-port overlies the body of the stomach. KUB X-Ray 04/22/20 00:00 IMPRESSION: Mildly dilated small bowel in the left lower quadrant. Overall findings are significantly improved from preoperative film dated 04/18/2020. Assessment & Plan - Diagnosis (1) Bowel obstruction Qualifiers: Intestinal obstruction type: obstruction due to adhesions Intestinal obstr uction extent: complete Qualified Code(s): K56.52 - Intestinal adhesions [bands] with complete obstruction Is this a current diagnosis for this admission?: Yes Plan: Impression: Patient is postoperative day 5 mini open exploratory laparotomy, lysis of adhesions; delayed bowel function, however today abdomen softer, patient desires p.o. intake. Recommendations: 1. Just trying p.o. intake with patient upright and supervised to reduce risk of aspiration 2. We will continue to follow patient with you. (2) Morbid obesity Is this a current diagnosis for this admission?: Yes (3) Asthma Qualifiers: Asthma severity: mild Asthma persistence: intermittent Asthma complicatio n type: uncomplicated Qualified Code(s): J45.20 - Mild intermittent asthma, uncomplicated Is this a current diagnosis for this admission?: Yes (4) Diabetes mellitus type 1 Qualifiers: Diabetes mellitus complication status: without complication Qualified Code(s): E10.9 - Type 1 diabetes mellitus without complications - Time Anticipated Discharge Disposition: Custodial Facility Anticipated Discharge Timeframe: within 72 hours Time Spent: 30 to 50 Minutes Smoking Cessation Education: 3 to 10 minutes Medications reviewed and adjusted accordingly: Yes
[2020-04-23] MEDS: INSULIN LISPRO 100 UNIT/ML 3 ML VIAL SUBCUT SCH ×3 (10:49→15:55)
[2020-04-23] MEDS: POTASSI CL 40 MEQ/NS 1L 1,000 ML IV PRN ×2 (10:53→20:54)
--- NOTE | 2020-04-23 11:47 | PDOC PROGRESS REPORT ---
Subjective Date:: 04/23/20 Subjective:: Patient was seen and examined. She pulled out her NG tube yesterday. She was a llowed clears by surgery. Reason For Visit: PATIENT POST OP SBO Physical Exam Vital Signs: Temp Pulse Resp BP Pulse Ox 97.5 F 102 H 18 108/65 95 04/23/20 08:41 04/23/20 08:41 04/23/20 08:41 04/23/20 08:41 04/23/20 08:41 Intake & Output 04/22/20 04/23/20 04/24/20 06:59 06:59 06:59 Intake Total 2359 1000 1000 Output Total 3975 2050 Balance -1616 -1050 1000 Weight 195 lb 15.855 oz 194 lb 3.636 oz Exam: General appearance: PRESENT: no acute distress, cooperative Head exam: PRESENT: atraumatic Eye exam: PRESENT: EOMI Ear exam: ABSENT: bleeding Respiratory exam: PRESENT: clear to auscultation lubna, unlabored Cardiovascular exam: PRESENT: RRR, +S1, +S2 GI/Abdominal exam: PRESENT: normal bowel sounds, soft. ABSENT: tenderness Neurological exam: PRESENT: alert, awake, oriented to person, oriented to place, oriented to time, oriented to situation Results Laboratory Results: 04/23/20 04:55 04/23/20 04:55 04/23/20 04/23/20 04:55 04:55 WBC 8.1 RBC 3.45 L Hgb 9.8 L Hct 29.3 L MCV 85 MCH 28.3 MCHC 33.3 RDW 16.3 H Plt Count 189 Sodium 148.3 H Potassium 3.6 Chloride 100 Carbon Dioxide 40 H* Anion Gap 8 BUN 34 H Creatinine 1.00 Est GFR ( Amer) > 60 Glucose 130 H Calcium 7.9 L Impressions: Abdomen/Pelvis CT 04/15/20 10:11 IMPRESSION: 1. Numerous fluid-filled dilated loops of jejunum in the left hemiabdomen that abruptly taper to a normal caliber at a focal point of the transition in the mid abdomen (image 62 of series 102). These findings are concerning for a mechanical bowel obstruction. 2. Fat-containing ventral hernia associated with stranding of the herniated fat. Abdomen X-Ray 04/17/20 07:00 IMPRESSION: Re- demonstration of multiple gas distended loops of small bowel within the left hemiabdomen. Interval placement of an enteric tube demonstrating appropriate positioning. Diminished gastric gas. Chest X-Ray 04/21/20 00:00 IMPRESSION: NG tube tip and side-port overlies the body of the stomach. KUB X-Ray 04/22/20 00:00 IMPRESSION: Mildly dilated small bowel in the left lower quadrant. Overall findings are significantly improved from preoperative film dated 04/18/2020. Assessment and Plan - Diagnosis (1) MILE (acute kidney injury) Is this a current diagnosis for this admission?: Yes (2) Alkalosis, metabolic Is this a current diagnosis for this admission?: Yes (3) Bowel obstruction Qualifiers: Intestinal obstruction type: obstruction due to adhesions Intestinal obstruction extent: complete Qualified Code(s): K56.52 - Intestinal adhesions [bands] with complete obstruction Is this a current diagnosis for this admission?: Yes (4) Chronic venous stasis dermatitis of both lower extremities Is this a current diagnosis for this admission?: Yes (5) Electrolyte abnormality Is this a current diagnosis for this admission?: Yes (6) Morbid obesity Is this a current diagnosis for this admission?: Yes (7) Small bowel obstruction Is this a current diagnosis for this admission?: Yes (8) UTI (urinary tract infection) Is this a current diagnosis for this admission?: Yes - Plan Summary Summary: Assessment and Plan (1) MILE (acute kidney injury) Creatinine improved with IV fluids. (2) Alkalosis, metabolic Most likely due to loss of gastric HCl from NG tube. Continue to monitor (3) Bowel obstruction General surgery Impression: Patient is 3 days status post exploratory laparotomy, lysis of adhesions, closure of ventral wall hernia, nasogastric tube self removed, no postoperative issues. Recommendations: 1. Leave NG tube out; start surgical sips 2. Can discontinue IV Levaquin from a postoperative standpoint 3. Suggested nursing staff get PT involved, assess mobilization capabilities with Shin lift (4) Chronic venous stasis dermatitis of both lower extremities (5) Electrolyte abnormality Monitor (6) Morbid obesity BMI is more than 34. Diet exercise weight loss lifestyle modifications discussed with the patient. (7) Small bowel obstruction S/p suregery with lysis f adhesionsand clearing of SBO with Dr. Aquino. NGT in place to low suction (8) UTI (urinary tract infection) Secondary to Klebsiella. Finished 5 days course of Levaquin. - Time Anticipated Discharge Disposition: Retirement Facility Anticipated Discharge Timeframe: within 72 hours
[2020-04-23] MEDS: MORPHINE SULFATE 10 MG/ML INJ IV PRN (20:45)
[2020-04-23] MEDS: INSULIN GLARGINE,HUM.REC.ANLOG 1,000 UNIT/10 ML VIAL SUBCUT SCH (22:03)
[2020-04-23] MEDS: LORAZEPAM INJ 2 MG/1 ML VIAL IV PRN (23:22)
[2020-04-24] MEDS: ENALAPRILAT DIHYDRATE INJ/PF 1.25 MG/1 ML SDV IV SCH ×3 (00:41→12:39)
[2020-04-24] MEDS: MORPHINE SULFATE 10 MG/ML INJ IV PRN (03:03)
[2020-04-24] MEDS: HEPARIN SOD (PORCINE) 5,000 UNIT/ML 1 ML VIAL SUBCUT SCH ×2 (05:19→14:36)
[2020-04-24] MEDS: ONDANSETRON HCL INJ/PF 4 MG/2 ML SDV IV PRN (05:19)
[2020-04-24] MEDS: LORAZEPAM INJ 2 MG/1 ML VIAL IV PRN (05:23)
[2020-04-24 06:11] LABS: HEMATOCRIT 27.8 % (36.0-47.0); HEMOGLOBIN 9.2 g/dL (12.0-15.5); MEAN CORPUSCULAR HEMOGLOBIN 28.1 pg (27.0-33.4); MEAN CORPUSCULAR HGB CONC 32.9 g/dL (32.0-36.0); MEAN CORPUSCULAR VOLUME 85 fl (80-97); PLATELET COUNT 158 10^3/uL (150-450); RED BLOOD COUNT 3.27 10^6/uL (3.72-5.28); RED CELL DISTRIBUTION WIDTH 16.2 % (11.5-14.0); WHITE BLOOD COUNT 8.3 10^3/uL (4.0-10.5)
[2020-04-24 06:41] LABS: BLOOD UREA NITROGEN 21 mg/dL (7-20); CALCIUM 7.4 mg/dL (8.4-10.2); CARBON DIOXIDE 31 mmol/L (22-30); CHLORIDE 108 mmol/L (98-107); GLUCOSE 131 mg/dL (75-110); POTASSIUM 3.5 mmol/L (3.6-5.0)
[2020-04-24 06:54] LABS: ANION GAP 4 (5-19)
[2020-04-24] MEDS: POTASSI CL 40 MEQ/NS 1L 1,000 ML IV PRN (07:38)
[2020-04-24] MEDS: INSULIN REG, HUMAN 100 UNIT/ML 3 ML VIAL (PYX) SUBCUT SCH ×2 (08:36→12:40)
[2020-04-24] MEDS: INSULIN LISPRO 100 UNIT/ML 3 ML VIAL SUBCUT SCH ×2 (08:37→12:39)
[2020-04-24 10:40] LABS: CHLORIDE URINE 59 mmol/24 hr (38-210)
--- NOTE | 2020-04-24 11:11 | PDOC PROGRESS REPORT ---
Subjective Date:: 04/24/20 Reason For Visit: PATIENT POST OP SBO Physical Exam Vital Signs: Temp Pulse Resp BP Pulse Ox 99.5 F 100 16 145/58 H 95 04/24/20 10:00 04/24/20 07:00 04/24/20 03:12 04/24/20 05:19 04/24/20 03:12 Intake & Output 04/23/20 04/24/20 04/25/20 06:59 06:59 06:59 Intake Total 1000 3400 Output Total 2049 1395 Balance -1050 2004 Weight 88.1 kg 90.7 kg Results Laboratory Results: 04/24/20 05:45 04/24/20 05:45 04/24/20 04/24/20 05:45 05:45 WBC 8.3 RBC 3.27 L Hgb 9.2 L Hct 27.8 L MCV 85 MCH 28.1 MCHC 32.9 RDW 16.2 H Plt Count 158 Sodium 143.4 Potassium 3.5 L Chloride 108 H Carbon Dioxide 31 H Anion Gap 4 L BUN 21 H Creatinine 0.75 Est GFR ( Amer) > 60 Glucose 131 H Calcium 7.4 L Impressions: Abdomen/Pelvis CT 04/15/20 10:11 IMPRESSION: 1. Numerous fluid-filled dilated loops of jejunum in the left he miabdomen that abruptly taper to a normal caliber at a focal point of the transition in the mid abdomen (image 62 of series 102). These findings are concerning for a mechanical bowel obstruction. 2. Fat-containing ventral hernia associated with stranding of the herniated fat. Abdomen X-Ray 04/17/20 07:00 IMPRESSION: Re- demonstration of multiple gas distended loops of small bowel within the left hemiabdomen. Interval placement of an enteric tube demonstrating appropriate positioning. Diminished gastric gas. Chest X-Ray 04/21/20 00:00 IMPRESSION: NG tube tip and side-port overlies the body of the stomach. KUB X-Ray 04/22/20 00:00 IMPRESSION: Mildly dilated small bowel in the left lower quadrant. Overall findings are significantly improved from preoperative film dated 04/18/2020. Assessment & Plan - Diagnosis (1) Small bowel obstruction Is this a current diagnosis for this admission?: Yes - Time Anticipated Discharge Disposition: Retirement Facility Anticipated Discharge Timeframe: unknown - Plan Summary Plan Summary: 64-year-old female status post ex lap for small bowel obstruction. The patient is now passing flatus and having bowel movements. She is tolerating a diet. As I understand it, the plan is for her to return to [facility]. Surgery will sign off at this time. [place] to be removed in approximately 1 week at [facility]. Please renotify with any questions or concerns.
--- NOTE | 2020-04-24 13:04 | PDOC TRANSFER SUMMARY ---
Impression - Admit/DC Date/PCP Admission Date/Primary Care Provider: 04/15/20 15:24 RICK MARION MD Discharge Date: 04/24/20 - Discharge Diagnosis (1) MILE (acute kidney injury) Is this a current diagnosis for this admission?: Yes (2) Alkalosis, metabolic Is this a current diagnosis for this admission?: Yes (3) Bowel obstruction Is this a current diagnosis for this admission?: Yes (4) Chronic venous stasis dermatitis of both lower extremities Is this a current diagnosis for this admission?: Yes (5) Electrolyte abnormality Is this a current diagnosis for this admission?: Yes (6) Morbid obesity Is this a current diagnosis for this admission?: Yes (7) Small bowel obstruction Is this a current diagnosis for this admission?: Yes (8) UTI (urinary tract infection) Is this a current diagnosis for this admission?: Yes - Assessment Summary: Assessment and Plan (1) MILE (acute kidney injury) Creatinine improved with IV fluids. (2) Alkalosis, metabolic Most likely due to loss of gastric HCl from NG tube. Continue to monitor (3) Bowel obstruction General surgery Impression: Patient is 3 days status post exploratory laparotomy, lysis of adhesions, closure of ventral wall hernia, nasogastric tube self removed, no postoperative issues. Recommendations: 1. Leave NG tube out; start surgical sips 2. Can discontinue IV Levaquin from a postoperative standpoint 3. Suggested nursing staff get PT involved, assess mobilization capabilities with Shin lift (4) Chronic venous stasis dermatitis of both lower extremities (5) Electrolyte abnormality Monitor (6) Morbid obesity BMI is more than 34. Diet exercise weight loss lifestyle modifications discussed with the patient. (7) Small bowel obstruction S/p suregery with lysis f adhesionsand clearing of SBO with Dr. Aquino. NGT in place to low suction (8) UTI (urinary tract infection) Secondary to Klebsiella. Finished 5 days course of Levaquin. - Additional Information Resuscitation Status: Full Code Referrals: [facility] [Outside] WENDY TRENT MD [ACTIVE STAFF] - Home Medications: Insulin Glargine,Hum.rec.anlog [Lantus Solostar] 20 units SUBCUT QHS 03/05/17 Multivitamin [Daily Multiple Vitamin] 1 tab PO DAILY 03/05/17 Acetaminophen [Tylenol 325 mg Tablet] 975 mg PO TIDP PRN 04/15/20 Ibuprofen 600 mg PO Q6HP PRN 04/15/20 Insulin Lispro [Humalog] 0 unit SQ .SLIDING SCALE 04/15/20 Levothyroxine Sodium 175 mcg PO QAM 04/15/20 Losartan Potassium [Cozaar 25 mg Tablet] 75 mg PO QAM 04/15/20 Magnesium Oxide [Mag-Ox 400 mg Tablet] 400 mg PO BID 04/15/20 Melatonin [Melatonin 3 mg Tablet] 9 mg PO QHS 04/15/20 Methocarbamol [Robaxin 500 mg Tablet] 500 mg PO Q6 04/15/20 Ondansetron HCl [Zofran 8 mg Tablet] 4 mg PO Q8HP PRN 04/15/20 Oxycodone HCl [Oxy-Ir 5 mg Tablet] 10 mg PO Q12 04/15/20 Oxycodone Myristate [Xtampza ER] 27 mg PO BID 04/15/20 Pantoprazole Sodium [Protonix [address] Tablet] 40 mg PO BID 04/15/20 Polyethylene Glycol 3350 [Glycolax] 17 gm PO DAILY 04/15/20 Simethicone 125 mg PO BID 04/15/20 Trazodone HCl [Desyrel 50 mg Tablet] 50 mg PO QHS 04/15/20 History of Present Illiness History of Present Illness: BA ARIAS is a 64 year old female with multiple medical problems and a history of prior abdominal surgery [facility] with abdominal pain, nausea, and vomiting. Apparently she ate last night but is not had anything to eat since. She apparently had a loose [place] colored stool yesterday. She had nausea vomiting and reported altered mental status. She was sent to the ER for evaluation. She was found to have a distended abdomen. CT abdomen pelvis showed dilated small bowel loops in the left abdomen with a transition point in the mid abdomen. Surgery was consulted and recommended conservative management. She initially did not want an NG tube but eventually consented. Hospital Course Hospital Course: (1) MILE (acute kidney injury) Creatinine improved with IV fluids. (2) Alkalosis, metabolic Most likely due to loss of gastric HCl from NG tube. Continue to monitor (3) Bowel obstruction General surgery Impression: Patient is 3 days status post exploratory laparotomy, lysis of adhesions, closure of ventral wall hernia, nasogastric tube self removed, no postoperative issues. NG tube is out. She is tolerating diet. Surgery signed off. [facility]. (4) Chronic venous stasis dermatitis of both lower extremities (5) Electrolyte abnormality Monitor (6) Morbid obesity BMI is more than 34. Diet exercise weight loss lifestyle modifications discussed with the patient. (7) Small bowel obstruction S/p suregery with lysis f adhesionsand clearing of SBO with Dr. Aquino. (8) UTI (urinary tract infection) Secondary to Klebsiella. Finished 5 days course of Levaquin. Physical Exam Vital Signs: Temp Pulse Resp BP Pulse Ox 99.5 F 100 16 145/58 H 95 04/24/20 10:00 04/24/20 07:00 04/24/20 03:12 04/24/20 05:19 04/24/20 03:12 Intake & Output 04/23/20 04/24/20 04/25/20 06:59 06:59 06:59 Intake Total 1000 3400 Output Total 2050 1395 Balance -1050 2004 Weight 194 lb 3.636 oz 199 lb 15.348 oz Exam: General appearance: PRESENT: no acute distress, cooperative Head exam: PRESENT: atraumatic Eye exam: PRESENT: EOMI Ear exam: ABSENT: bleeding Respiratory exam: PRESENT: clear to auscultation lubna, unlabored Cardiovascular exam: PRESENT: RRR, +S1, +S2 GI/Abdominal exam: PRESENT: normal bowel sounds, soft. ABSENT: tenderness Neurological exam: PRESENT: alert, awake, oriented to person, oriented to place, oriented to time, oriented to situation Results Laboratory Results: WBC 8.3 10^3/uL (4.0-10.5) 04/24/20 05:45 RBC 3.27 10^6/uL (3.72-5.28) L 04/24/20 05:45 Hgb 9.2 g/dL (12.0-15.5) L 04/24/20 05:45 Hct 27.8 % (36.0-47.0) L 04/24/20 05:45 MCV 85 fl (80-97) 04/24/20 05:45 MCH 28.1 pg (27.0-33.4) 04/24/20 05:45 MCHC 32.9 g/dL (32.0-36.0) 04/24/20 05:45 RDW 16.2 % (11.5-14.0) H 04/24/20 05:45 Plt Count 158 10^3/uL (150-450) 04/24/20 05:45 Lymph % (Auto) 14.2 % (13-45) 04/22/20 04:00 [place] % (Auto) 9.4 % (3-13) 04/22/20 04:00 Eos % (Auto) 1.4 % (0-6) 04/22/20 04:00 Baso % (Auto) 0.1 % (0-2) 04/22/20 04:00 Absolute Neuts (auto) 4.7 10^3/uL (1.7-8.2) 04/22/20 04:00 Absolute Lymphs (auto) 0.9 10^3/uL (0.5-4.7) 04/22/20 04:00 Absolute Monos (auto) 0.6 10^3/uL (0.1-1.4) 04/22/20 04:00 Absolute Eos (auto) 0.1 10^3/uL (0.0-0.6) 04/22/20 04:00 Absolute Basos (auto) 0.0 10^3/uL (0.0-0.2) 04/22/20 04:00 Seg Neutrophils % 74.9 % (42-78) 04/22/20 04:00 Carbonic Acid 1.92 mmol/L (1.05-1.35) H 04/18/20 17:25 HCO3/H2CO3 Ratio 24:1 04/18/20 17:25 ABG pH 7.48 (7.35-7.45) H 04/18/20 17:25 ABG pCO2 63.7 mmHg (35-45) H 04/18/20 17:25 ABG pO2 138.8 mmHg (80-100) H 04/18/20 17:25 ABG HCO3 46.7 mmol/L (20-24) H 04/18/20 17:25 ABG Total CO2 48.7 mmol/L (21-25) H 04/18/20 17:25 ABG O2 Saturation 98.8 % (94-98) H 04/18/20 17:25 ABG Base Excess 19.5 mmol/L 04/18/20 17:25 VBG pH 7.40 (7.30-7.42) 04/15/20 09:38 VBG pCO2 46.5 mmHg (35-63) 04/15/20 09:38 VBG HCO3 27.8 mmol/L (20-32) 04/15/20 09:38 VBG Base Excess 2.3 mmol/L 04/15/20 09:38 FiO2 ROOM AIR 04/18/20 17:25 Sodium 143.4 mmol/L (137-145) 04/24/20 05:45 Potassium 3.5 mmol/L (3.6-5.0) L 04/24/20 05:45 Chloride 108 mmol/L (98-107) H 04/24/20 05:45 Carbon Dioxide 31 mmol/L (22-30) H 04/24/20 05:45 Anion Gap 4 (5-19) L 04/24/20 05:45 BUN 21 mg/dL (7-20) H 04/24/20 05:45 Creatinine 0.75 mg/dL (0.52-1.25) 04/24/20 05:45 Est GFR ( Amer) > 60 (>60) 04/24/20 05:45 Est GFR (MDRD) Non-Af > 60 (>60) 04/24/20 05:45 Glucose 131 mg/dL (75-110) H 04/24/20 05:45 POC Glucose 171 mg/dL (70-110) H 04/24/20 12:31 Calcium 7.4 mg/dL (8.4-10.2) L 04/24/20 05:45 Magnesium 2.6 mg/dL (1.6-2.3) H D 04/21/20 05:46 Total Bilirubin 0.8 mg/dL (0.2-1.3) 04/19/20 03:45 Direct Bilirubin 0.5 mg/dL (0.0-0.4) H 04/19/20 03:45 Neonat Total Bilirubin Not Reportable 04/19/20 03:45 Neonat Direct Bilirubin Not Reportable 04/19/20 03:45 Neonat Indirect Bili Not Reportable 04/19/20 03:45 AST 20 U/L (14-36) 04/19/20 03:45 ALT 17 U/L (<35) 04/19/20 03:45 Alkaline Phosphatase 143 U/L (38-126) H 04/19/20 03:45 Total Protein 6.5 g/dL (6.3-8.2) 04/19/20 03:45 Albumin 3.3 g/dL (3.5-5.0) L 04/19/20 03:45 Lipase 88.3 U/L (23-300) 04/15/20 08:09 Urine Color SERAFIN 04/15/20 10:40 Urine Appearance CLOUDY 04/15/20 10:40 Urine pH 5.0 (5.0-9.0) 04/15/20 10:40 Ur Specific [place] 1.024 04/15/20 10:40 Urine Protein >=500 mg/dL (NEGATIVE) H 04/15/20 10:40 Urine Glucose (UA) >=500 mg/dL (NEGATIVE) H 04/15/20 10:40 Urine Ketones NEGATIVE mg/dL (NEGATIVE) 04/15/20 10:40 Urine Blood SMALL (NEGATIVE) H 04/15/20 10:40 Urine Nitrite NEGATIVE (NEGATIVE) 04/15/20 10:40 Urine Bilirubin NEGATIVE (NEGATIVE) 04/15/20 10:40 Urine Urobilinogen 2.0 mg/dL (<2.0) H 04/15/20 10:40 Ur Leukocyte Esterase LARGE (NEGATIVE) H 04/15/20 10:40 Urine WBC (Auto) >182 /HPF 04/15/20 10:40 Urine RBC (Auto) 25 /HPF 04/15/20 10:40 U Hyaline Cast (Auto) 8 /LPF 04/15/20 10:40 Urine Bacteria (Auto) 2+ /HPF 04/15/20 10:40 Urine WBC Clumps MANY /HPF 04/15/20 10:40 Squamous Epi Cells Auto 1 /HPF 04/15/20 10:40 Urine Mucus (Auto) RARE /LPF 04/15/20 10:40 Urine Potassium 118.1 mmol/L (22-164) 04/21/20 19:30 Ur Chloride mmol/L 47 mmol/L (Not Estab.) 04/22/20 20:00 Ur Chloride mmol/Day 59 mmol/24 hr (38-210) 04/22/20 20:00 Urine Ascorbic Acid NEGATIVE (NEGATIVE) 04/15/20 10:40 COVID-19 Source See comment 04/17/20 03:30 COVID-19 (KATHRYN) Not Detected (Not Detect) 04/17/20 03:30 Influenza A (RT-PCR) NEGATIVE (NEGATIVE) 04/18/20 15:00 Influenza B (RT-PCR) NEGATIVE (NEGATIVE) 04/18/20 15:00 RSV (RT-PCR) NEGATIVE (NEGATIVE) 04/18/20 15:00 SARS-CoV-2 Rap RNA(RT-PCR) NEGATIVE (NEGATIVE) 04/18/20 15:00 Impressions: KUB X-Ray 04/15/20 00:00 IMPRESSION: NG tube as described. Small bowel obstruction. Abdomen X-Ray 04/15/20 09:00 IMPRESSION: Several air-filled dilated loops of bowel in the left hemiabdomen that measure up to 4.2 cm in diameter. Correlation with CT is recommended to exclude a mechanical obstruction. Abdomen/Pelvis CT 04/15/20 10:11 IMPRESSION: 1. Numerous fluid-filled dilated loops of jejunum in the left hemiabdomen that abruptly taper to a normal caliber at a focal point of the transition in the mid abdomen (image 62 of series 102). These findings are concerning for a mechanical bowel obstruction. 2. Fat-containing ventral hernia associated with stranding of the herniated fat. KUB X-Ray 04/15/20 12:58 IMPRESSION: The tip of the enteric tube projects within the gastric lumen. KUB X-Ray 04/16/20 00:00 IMPRESSION: Persistent and unchanged dilatation of several loops of bowel in the left lower quadrant. KUB X-Ray 04/16/20 00:00 IMPRESSION: Re- demonstration of multiple gas distended loops of small bowel within the hemiabdomen. The thymic is likewise appears gas-filled on today's examination. Interval removal of the previously demonstrated enteric tube. Chest X-Ray 04/17/20 00:00 IMPRESSION: NG tube tip in the body of the stomach. Abdomen X-Ray 04/17/20 07:00 IMPRESSION: Re- demonstration of multiple gas distended loops of small bowel within the left hemiabdomen. Interval placement of an enteric tube demonstrating appropriate positioning. Diminished gastric gas. Chest X-Ray 04/18/20 00:00 IMPRESSION: Left IJV catheter as described. No acute pulmonary findings. KUB X-Ray 04/18/20 06:34 IMPRESSION: Ileus or partial small bowel obstruction. No significant change. Chest X-Ray 04/21/20 00:00 IMPRESSION: NG tube tip and side-port overlies the body of the stomach. KUB X-Ray 04/22/20 00:00 IMPRESSION: Mildly dilated small bowel in the left lower quadrant. Overall findings are significantly improved from preoperative film dated 04/18/2020. Stroke Is this a Stroke Patient?: No Acute Heart Failure Is this a Heart Failure Patient?: No
[2020-04-24 13:56] VITALS: BP 111/57
== END 2020-04-24 15:59 | DRG 336 ==
LOC: ER 07:20 → EH 15:24 → 4S 04-16 00:30 → ICU 04-18 13:57 → 3S 04-19 18:58
PROVIDERS: ADMIT Internal Medicine; ATTEND Family Medicine
PROC: 0D9670Z Drainage of Stomach with Drainage Device, Via Natural or Artificial Opening (ICD-10-PCS; 2020-04-15)
PROC: 0WQF0ZZ Repair Abdominal Wall, Open Approach (ICD-10-PCS; 2020-04-18)
PROC: 0DN80ZZ Release Small Intestine, Open Approach (ICD-10-PCS; principal; 2020-04-18 17:00)
DX: K56.52 Intestinal adhesions [bands] with complete obstruction (principal); K46.0 Unspecified abdominal hernia with obstruction, without gangrene; K43.0 Incisional hernia with obstruction, without gangrene; N17.9 Acute kidney failure, unspecified; E87.3 Alkalosis; N39.0 Urinary tract infection, site not specified; I10 Essential (primary) hypertension; E11.9 Type 2 diabetes mellitus without complications; M06.9 Rheumatoid arthritis, unspecified; G89.29 Other chronic pain; M54.9 Dorsalgia, unspecified; E03.9 Hypothyroidism, unspecified; K21.9 Gastro-esophageal reflux disease without esophagitis; F41.9 Anxiety disorder, unspecified; E66.01 Morbid (severe) obesity due to excess calories; J45.20 Mild intermittent asthma, uncomplicated; L89.321 Pressure ulcer of left buttock, stage 1; E11.51 Type 2 diabetes mellitus with diabetic peripheral angiopathy without gangrene; I87.2 Venous insufficiency (chronic) (peripheral); E87.8 Other disorders of electrolyte and fluid balance, not elsewhere classified; E86.0 Dehydration; I95.9 Hypotension, unspecified; G47.33 Obstructive sleep apnea (adult) (pediatric); E87.6 Hypokalemia; B96.1 Klebsiella pneumoniae [K. pneumoniae] as the cause of diseases classified elsewhere; Z88.0 Allergy status to penicillin; Z88.2 Allergy status to sulfonamides; Z88.5 Allergy status to narcotic agent; Z82.61 Family history of arthritis; Z82.49 Family history of ischemic heart disease and other diseases of the circulatory system; Z87.01 Personal history of pneumonia (recurrent); Z79.4 Long term (current) use of insulin; Z79.899 Other long term (current) drug therapy; Z79.891 Long term (current) use of opiate analgesic; Z98.890 Other specified postprocedural states; Z91.19 Patient's noncompliance with other medical treatment and regimen; Z74.01 Bed confinement status; Z68.38 Body mass index [BMI] 38.0-38.9, adult; Z20.828 Contact with and (suspected) exposure to other viral communicable diseases
CPT/HCPCS: 36415; 71045; 74018; 74019; 74177; 790; 80048; 80053; 81001; 82436; 82803; 82962; 83690; 83735; 84133; 85025; 85027; 87086; 87088; 87186; 87635; 88302; 96361; 96374; 96375; 96376; 99140; 99285; 99291; 0241U; C9803; J0330; J0696; J1170; J1642; J1644; J1815; J1885; J1956; J2060; J2250; J2270; J2370; J2405; J2704; J2710; J3010; J3475; J3480; J3490; J7030; J7042; J7120